=== PATIENT | female | born 1965 | race Caucasian/White ===

== ENCOUNTER 2024-08-04 10:33 | Inpatient (IN) ==
--- NOTE | 2024-08-04 11:26 | Emergency Department Note ---
ED Provider Note CHIEF COMPLAINT: Shortness of breath HISTORY OF PRESENT ILLNESS: This 58-year-old patient presents to the emergency department via private vehicle for evaluation of shortness of breath with history of REVIEW OF SYSTEMS: A review of systems was performed with positives and pertinent negatives listed in the history of present illness. All other systems were reviewed and are negative. ALLERGIES: [] MEDICATIONS: [] PMH: [] PHYSICAL EXAM: VITALS: Vitals are noted on the nurse's note and reviewed by myself. Vital signs stable. GENERAL: [], in no acute distress, nondiaphoretic, well-developed well- nourished. SKIN: The skin was without rashes, erythema, edema, or bruising. HEAD: Normocephalic atraumatic. EARS: External auditory canals clear, tympanic membranes pearly piper without erythema or effusion bilaterally. EYES: Pupils equal round and reactive to light and accommodation. Conjunctivae without injection, sclerae without icterus. Extraocular movements intact. NOSE: Patent, turbinates without inflammation or discharge. No sinus tenderness. MOUTH: Mucous membranes moist. Tonsils are not enlarged. Pharynx without erythema or exudate. Uvula midline. Airway patent. Tongue does not deviate. NECK: Supple without nuchal rigidity. No lymphadenopathy. No thyromegaly. Cervical spine is nontender. No JVD. HEART: Regular rate and rhythm without murmurs gallops or rubs. LUNGS: Clear to auscultation bilaterally without wheezes, rales or rhonchi. No retractions or accessory muscle use. ABDOMEN: Positive bowel sounds x 4. Soft, nontender, without masses or organomegaly. Mott sign negative. No guarding or rebound tenderness. MUSCULOSKELETAL: No muscle atrophy, erythema, or edema noted. Full range of motion without joint tenderness in all extremities. No tenderness to palpation. Normal gait. Strength 5/5 throughout. NEURO: Patient was alert and oriented to person place and time. No focal neur ological deficits. MEDICAL DECISION MAKING: DIFFERENTIAL DIAGNOSIS: [] The chart was completed utilizing [employer] Speech voice recognition software. Grammatical errors, random word insertions, pronoun errors, and incomplete sentences are an occasional consequence of this system due to software limitations, ambient noise, and hardware issues. Any formal questions or concerns about the content, text, or information contained within the body of this dictation should be directly addressed to the physician for clarification. Past Med/Surg History Problem List (Updated 07/21/24 @ 23:12 by Julianne Ramos MD) Abdominal ascites (Acute) Cirrhosis (Acute) Cellulitis of abdominal wall (Acute) Impaired glucose tolerance Surgical History (Updated 10/03/18 @ 13:13 by Madhu Torres PA-C) No significant past surgical history Social History Smoking Status: Current every day smoker Preferred Language: Icelandic Feels Safe at Home: Yes Allergies Allergies Allergy/AdvReac Type Severity Reaction Status Date / Time No Known Allergies Allergy Mild Unverified 10/28/06 13:31 Home Meds Home Medications Medication Instructions Recorded Confirmed DOXYPEN ##0 10/28/06 SERAZONE ##0 10/28/06 STOMACH PILL ##0 10/28/06 Previous Rx's Medication Instructions Recorded hydrocodone 5 mg-acetaminophen 325 1 tab PO Q6H PRN pain #12 tabs 10/03/18 mg tablet ([place]) Results & Data (ED) Vital Signs Vital Signs - 24 hr 08/04/24 11:01 08/04/24 11:01 Temperature 36.9 C Temperature Source Oral Pulse Rate 96 H Pulse Rhythm Regular Pulse Strength Normal Respiratory Rate 20 Respiratory Effort / Characteristics Non-Labored Spontaneous Non-Labored Respiratory Depth Normal Normal Respiratory Pattern Regular Regular Blood Pressure 125/67 Blood Pressure Mean 86 Blood Pressure Position Sitting Pulse Oximetry 95 Oxygen Delivery Method Room Air Room Air Sepsis Recent Fever Within 48 Hours No Sepsis New/Unexplained Change in Mental Status No Sepsis Action Taken by Nursing No Action Required Discharge Plan Visit Data Chief Complaint: Shortness of Breath/Dyspnea Stated Complaint: SOB/TROUBLE BREATHING, FLUID IN LIVER/LUNGS ED Provider: Lj Livingston ED Midlevel Provider: Jennifer Brothers Forms Stand Alone Forms: My [facility] [employer] Prescriptions Prescriptions: No Action DOXYPEN Qty: 0 SERAZONE Qty: 0 STOMACH PILL Qty: 0 hydrocodone-acetaminophen [[place]] 5-325 mg tablet 1 tab PO Q6H PRN (Reason: pain) Qty: 12 0RF Rx Instructions: Initial Treatment Referrals Referrals: Alexandro Rose MD [Primary Care Provider] -
[2024-08-04 12:18] LABS: Basophils # (auto) 0.04 K/uL (0.00-0.20); Basophils % (auto) 0.5 %; Eosinophils # (auto) 0.12 K/uL (0.00-0.50); Eosinophils % (auto) 1.4 %; Hematocrit (blood only) 33.7 % (37.0-47.0); Hemoglobin 10.8 g/dl (12.0-16.0); Immature Granulocytes # (auto) 0.06 K/uL (0.01-0.20); Immature Granulocytes % (auto) 0.7 %; Lymphocytes # (auto) 2.09 K/uL (1.20-3.40); Lymphocytes % (auto) 24.1 %; Mean Corpuscular Hemoglobin 30.6 pg (25.0-34.0); Mean Corpuscular Volume 95.5 fL (80.0-100.0); Mean Platelet Volume 10.3 fL (9.4-12.4); Monocytes # (auto) 0.41 K/uL (0.11-0.59); Monocytes % (auto) 4.7 %; Neutrophils # (auto) 5.97 K/uL (1.40-6.50); Neutrophils % (auto) 68.6 %; Platelet Count 115 K/uL (130-400); RDW Coefficient of Variation 15.3 % (11.5-14.5); RDW Standard Deviation 53.1 fL (36.4-46.3); Red Blood Count 3.53 M/uL (4.20-5.40); White Blood Count 8.69 K/ul (4.8-10.8)
[2024-08-04 12:27] LABS: Albumin Globulin Ratio 0.7 (0.9-2); Albumin Level 3.2 gm/dl (3.4-5.0); BUN Creatinine Ratio 11.1 (10-20); Bilirubin,Total 1.1 mg/dl (0.2-1.0); Calcium 8.3 mg/dl (8.6-10.3); Creatinine Clr Calc Pharmacy 92.5 ml/min; Globulin 4.6 gm/dl (2.5-4.0); Potassium 3.4 mmol/L (3.5-5.1); Total Protein 7.8 gm/dl (6.0-8.3)
[2024-08-04] MEDS: OPTIRAY 320 100ml IV ONE (13:09)
--- NOTE | 2024-08-04 13:35 | XRay Report ---
XR chest 1V portable HISTORY: 58 years-old Female Dyspnea acute shortness of breath COMPARISON: None TECHNIQUE: AP view of the chest FINDINGS: Cardiomediastinal and hilar silhouettes are within normal limits. Interstitial coarsening with hazy i ll-defined bibasilar densities suggestive of atelectasis. No pneumothorax or pleural effusion. Bones appear grossly intact. IMPRESSION: No acute process. ACT 112: Negative or not required by law. The above report was generated using voice recognition software. It may contain grammatical, syntax o r spelling errors. Electronically signed by: Jono Mendez M.D. 08/04/2024 1:34 PM
--- NOTE | 2024-08-04 13:44 | CT Scan Report ---
ABDOMEN AND PELVIS CT WITH IV CONTRAST CT DOSE: 1414.17 mGy.cm HISTORY: Acute generalized abdominal pain with distention and ascites ascites, cellulitis TECHNIQUE: Multiaxial CT images of the abdomen and pelvis were performed following the IV administrat ion of 94 cc of Optiray, A dose lowering technique was utilized adhering to the principles of ALARA. COMPARISON STUDY: CT abdomen and pelvis 07/21/2024 FINDINGS: Cardiomegaly with coronary artery calcifications. The lung bases are generally clear. No pn eumatosis or pneumoperitoneum. Splenomegaly redemonstrated measuring up to 16 cm. Unremarkable pancre as, gallbladder and adrenal glands. Cirrhotic liver. No hepatic mass identified. There is patency of the portal vein. Unremarkable kidneys. No hydronephrosis. Unremarkable pelvic structures. Atherosclerosis of the aorta without aneurysm. Mildly enlarged periportal lymph nodes, likely related to the chronic liver diseas e. Abdominal varicosities include periesophageal varicosities with mild distal esophageal wall thicke komal. There is mild wall thickening. The majority of the small bowel with additional areas of large b owel wall thickening also seen. Colonic diverticulosis. No bowel obstruction. Moderate ascites. Anasa rca. Fat and fluid filled umbilical hernia with diastases of approximately 4 cm. Infraumbilical herni a is fat filled, opening a 4.5 cm. No acute fracture. No destructive bone lesions. IMPRESSION: 1. Cirrhosis with stigmata of portal venous hypertension redemonstrated including splenomegaly with m oderate ascites and abdominal varicosities. 2. Areas of large and small bowel wall thickening again noted, likely portal enteropathy and colopath y with infectious etiology considered less likely. 3. No bowel obstruction or pneumoperitoneum. 4. Colonic diverticulosis. 5. Abdominal wall hernias redemonstrated. ACT 112: Negative or not required by law. The above report was generated using voice recognition software. It may contain grammatical, syntax o r spelling errors. Electronically signed by: Jono Mendez M.D. 08/04/2024 1:42 PM
--- NOTE | 2024-08-04 14:22 | Emergency Department Note ---
ED Visit Note I was consulted by the Advanced Practice Provider. The case was discussed at length. I personally made/approved the management plan and take responsibility for the patient management. I performed a substantive portion of the visit. This includes the aspects of: [-I independently interpreted the following studies:][Chest x-ray shows potential atelectasis or some fluid buildup at both lower lung bases.] Patient presents with some shortness of breath and fluid buildup. She does have liver disease and ascites. Given her presentation, given the amount of ascites, hospitalization was felt warranted. Patient may benefit from a paracentesis while hospitalized. .
--- NOTE | 2024-08-04 15:10 | History & Physical Report ---
<Statement entered by Mansoor Houston, DO - 08/04/24 16:57> I have seen and examined the patient and have discussed the case with the provider above. I have reviewed the advanced practitioner's documentation, and I agree with, and take responsibility for that plan of care. Patient states is getting her 30 pounds over the past month or so. Biggest complaint now is that she is hungry and she has not been fed. Significant shortness of breath with activity. Lungs: Decreased breath sounds, few crackles at the bases Abdomen: Distended, firm, umbilical hernia/abdominal wall hernia, skin is edematous and red, no evidence of cellulitis, fluid wave, some mild tenderness over the umbilical hernia but soft Extremities: Severe 4+ pitting edema up through posterior thigh Reviewed GI consultation, agreeing with paracentesis, recommending EGD to evaluate for variceal screening. Note: Patient was quite adamant that she would not let us put anything down her throat when I interviewed her earlier. Assessment: Suspected progressive ascites and edema due to cirrhosis of unknown certain etiology, suspected fatty liver disease. Consider right sided heart failure Discussed plan of care as outlined below with NAM Date of Service August 04, 2024 Assessment & Plan (1) Decompensated cirrhosis: (2) Abdominal ascites: (3) T2DM (type 2 diabetes mellitus): Plan This is a 58-year-old female who has a significant past medical history of T2DM, diabetic polyneuropathy, HLD, asthma and depression who presents to ED secondary to worsening shortness of breath and increasing abdominal distention over the last several weeks. New onset decompensated liver cirrhosis admit to the [facility] Cirrhosis work up including echo, ferritin, transferrin, PTT, PT/INR,Hepatitis panel, ZACKARY, ceruloplasmin, alpha 1 antitrypsin Recent TSH as outpt was 6, will repeat for t4 Diagnostic and therapeutic paracentesis in a.m. with fluid analysis Lasix IV 40mg BID with KCL + Aldactone 100mg daily consult gastroenterology --CT a/p:Cirrhosis with stigmata of portal venous hypertension re demonstrated including splenomegaly with moderate ascites and abdominal varicosities.2. Areas of large and small bowel wall thickening again noted, likely portal enteropathy and colopathy with infectious etiology considered less likely. continue PPI Umbilical hernia --Ct shows no incarceration she will need Gen surgery eval as outpatient abdominal wall erythema in the setting of distension and varicosities not a true cellulitis T2DM- last a1c 7.2 in March, hold metformin, ISS per protocol HLD: chronic, stable, hold statin for now DVT ppx: SCDS in light of paracentesis tomorrow FULL CODE PCP: Rose Dispo: admit to med tele Pt was seen and examined in collaboration with Dr. Houston, please see addendum I spent a total of 76 minutes reviewing notes, outpatient records, labs, medication, coordinating, documenting and providing care for this patient excluding time spent in the performance of separately billed services. History of Present Illness Chief Complaint: Increasing abd distension and worsening SOB. Primary Care Provider: Alexandro Rose MD This is a 58-year-old female who has a significant past medical history of T2DM, diabetic polyneuropathy, HLD, asthma and depression who presents to ED secondary to worsening shortness of breath and increasing abdominal distention over the last several weeks. Of significance patient was seen in ED on 07/21 secondary to diarrhea and abdominal wall cellulitis. At that point in time it was recommended she continue to take a course of Bactrim for which she was prescribed as outpatient. CT scan at the time showed diffuse ascites with evidence of cirrhosis. It was recommended patient be admitted to hospital for further workup; however, she declined due to needing to take care of the dogs. She also recently followed up in the outpatient setting and again was recommended ED evaluation, but further declined. Because of this she was started on Lasix 40 mg twice a daily, potassium supplement as well as Aldactone. Upon questioning patient gets easily frustrated and does not want to answer questions. She keeps reiterating that she cannot be admitted long as she has to return home to her dogs. She reports having coverage for her dogs throughout today. She states over the last several months she has noticed increased distention in her abdomen. She thought maybe she just ate too much over the holidays. She also notes increasing shortness of breath to the point she is unable to walk from 1 part of her house to the other without getting significantly short of breath. She does have lower extremity swelling, but fe els this is unchanged. She also continues to experience redness and bulging of her umbilical hernia. She also feels that it is warm. She further reports continued loose stool and diarrhea. She states she moves her bowels and it is very watery every couple hours. She denies any black or tarry stool. She further denies any recent fever, chills, sweats, lightheadedness, dizziness, chest pain, palpitations, n/v or change in urinary habits. in ED patient underwent a CT abdomen pelvis which showed cirrhosis with stigmata of portal venous hypertension including splenomegaly with moderate ascites and abdominal varicosities. Areas of large and small bowel wall thickening again noted likely portal enteropathy [place] colopathy. Abdominal wall hernia again noted mostly fat filled. She denies any prior alcohol use or significant Tylenol use. She denies any prior history of blood transfusions or known diagnosis of hepatitis. She is unsure regarding her vaccination status and states, "that should be in my chart." She is unsure of her family history as she states that she grew up in a foster care. Allergies Allergy/AdvReac Type Severity Reaction Status Date / Time No Known Allergies Allergy Mild Unverified 10/28/06 13:31 Home Medications Medication Instructions Recorded Confirmed Type aspirin 81 mg tablet,delayed 81 mg PO DAILY 08/04/24 08/04/24 History release atorvastatin 20 mg tablet 20 mg PO DAILY 08/04/24 08/04/24 History doxepin 25 mg capsule 25 mg PO BID 08/04/24 08/04/24 History furosemide 40 mg tablet 40 mg PO BID 08/04/24 08/04/24 History metformin 500 mg tablet,extended 500 mg PO DAILY 08/04/24 08/04/24 History release 24 hr pantoprazole 40 mg tablet,delayed 40 mg PO DAILY 08/04/24 08/04/24 History release potassium chloride 20 mEq 20 meq PO BID 08/04/24 08/04/24 History tablet,extended release spironolactone 100 mg tablet 100 mg PO DAILY 08/04/24 08/04/24 History trazodone 100 mg tablet 100 mg PO HS 08/04/24 08/04/24 History Past Med/Surg History Problem List (Updated 08/04/24 @ 15:19 by Layla Maldonado PA-C) Decompensated cirrhosis Abdominal ascites (Acute) Cellulitis of abdominal wall (Acute) Impaired glucose tolerance Medical History (Updated 08/04/24 @ 15:19 by Layla Maldonado PA-C) Tobacco use Asthma HLD (hyperlipidemia) T2DM (type 2 diabetes mellitus) Cirrhosis Surgical History No significant past surgical history Family History (Updated 08/04/24 @ 15:07 by Layla Maldonado PA-C) Other Family history unknown Social History (Updated 08/04/24 @ 15:07 by Layla Maldonado PA-C) Smoking Status: Current every day smoker Tobacco Type: Cigarettes Hx Alcohol Use: No Hx Substance Use: No Preferred Language: Brazilian marital status: Single Current Living Situation: Alone Feels Safe at Home: Yes Review of Systems Review of Systems: All systems reviewed & are unremarkable except as noted in HPI & below Physical Exam Physical Exam: Constitutional: WD/WN, vitals as above, NAD, sitting up in bed, pleasant, conversing easily Head: Normocephalic, Atraumatic Eyes: PERRL, conjunctivae normal, anicteric sclerae ENMT: external ear and nose normal, oropharynx normal Neck: trachea midline, no thyromegaly normal visual inspection Respiratory: normal respiratory effort, lungs clear to auscultation, no wheeze, rales, rhonchi. Normal insp/exp effort, no accessory muscle use Cardiovascular: RRR, no murmur, no edema Vessels: no JVD or carotid bruit Chest: normal inspection of chest Abdomen: normal bowel sounds, soft, nontender, no hepatosplenomegaly Musculoskeletal: no cyanosis or clubbing, extremities motor strength 5/5 Skin: no rashes, warm and dry normal turgor Neurologic: PERRL, EOMI, accommodation nl, no face palsy, no dysarthria CN's II-XI intact bilaterally and moves all extremities Psychiatric: A+Ox3, euthymic affect Lymphatic: no cervical or axillary lymphadenopathy : deferred Results & Data Results & Data Vital Signs (Past 12 Hours) Vital Signs Temp Pulse Resp BP Pulse Ox O2 Del Method 08/04/24 14:00 96 H 20 142/91 H 95 Room Air 08/04/24 13:03 94 H 21 95 Room Air 08/04/24 13:00 140/102 H 08/04/24 12:15 90 17 96 Room Air 08/04/24 12:00 139/81 08/04/24 12:00 94 H 17 139/81 97 Room Air 08/04/24 11:48 107 H 20 119/72 97 Room Air 08/04/24 11:39 97 H 08/04/24 11:37 94 H 20 96 Room Air 08/04/24 11:30 99 Room Air 08/04/24 11:01 36.9 C 96 H 20 125/67 95 Room Air 08/04/24 11:01 Room Air Laboratory Results I have independently reviewed and interpreted patient's admitting labs including CBC, CMP, PTT, PT/INR, mag and troponin. Diagnostic Findings Abdomen/Pelvis CT 08/04/24 11:[address] WITH IV CONTRAST CT DOSE: 1414.17 mGy.cm HISTORY: Acute generalized abdominal pain with distention and ascites ascites, cellulitis TECHNIQUE: Multiaxial CT images of the abdomen and pelvis were performed following the IV administration of 94 cc of Optiray, A dose lowering technique was utilized adhering to the principles of ALARA. COMPARISON STUDY: CT abdomen and pelvis 07/21/2024 FINDINGS: Cardiomegaly with coronary artery calcifications. The lung bases are generally clear. No pneumatosis or pneumoperitoneum. Splenomegaly redemonstrated measuring up to 16 cm. Unremarkable pancreas, gallbladder and adrenal glands. Cirrhotic liver. No hepatic mass identified. There is patency of the portal vein. Unremarkable kidneys. No hydronephrosis. Unremarkable pelvic structures. Atherosclerosis of the aorta without aneurysm. Mildly enlarged periportal lymph nodes, likely related to the chronic liver disease. Abdominal varicosities include periesophageal varicosities with mild distal esophageal wall thickening. There is mild wall thickening. The majority of the small bowel with additional areas of large bowel wall thickening also seen. Colonic diverticulosis. No bowel obstruction. Moderate ascites. Anasarca. Fat and fluid filled umbilical hernia with diastases of approximately 4 cm. Infraumbilical hernia is fat filled, opening a 4.5 cm. No acute fracture. No destructive bone lesions. IMPRESSION: 1. Cirrhosis with stigmata of portal venous hypertension redemonstrated including splenomegaly with moderate ascites and abdominal varicosities. 2. Areas of large and small bowel wall thickening again noted, likely portal enteropathy and colopathy with infectious etiology considered less likely. 3. No bowel obstruction or pneumoperitoneum. 4. Colonic diverticulosis. 5. Abdominal wall hernias redemonstrated. ACT 112: Negative or not required by law. The above report was generated using voice recognition software. It may contain grammatical, syntax or spelling errors. Electronically signed by: Jono Mendez M.D. 08/04/2024 1:42 PM Chest X-Ray 08/04/24 11:37 XR chest 1V portable HISTORY: 58 years-old Female Dyspnea acute shortness of breath COMPARISON: None TECHNIQUE: AP view of the chest FINDINGS: Cardiomediastinal and hilar silhouettes are within normal limits. Interstitial coarsening with hazy ill-defined bibasilar densities suggestive of atelectasis. No pneumothorax or pleural effusion. Bones appear grossly intact. IMPRESSION: No acute process. ACT 112: Negative or not required by law. The above report was generated using voice recognition software. It may contain grammatical, syntax or spelling errors. Electronically signed by: Jono Mendez M.D. 08/04/2024 1:34 PM Medications Administered Medication List Discontinued Medications Furosemide (Furosemide 40 Mg/4 Ml Vial) 40 mg IV ONE ONE Stop: 08/04/24 15:00 Last Admin: 08/04/24 15:12 Dose: 40 mg Documented By: JAMES Ioversol (Optiray 320 100ml) 94 ml IV ONCE ONE Stop: 08/04/24 13:09 Last Admin: 08/04/24 13:09 Dose: 94 ml Documented By: EL ECG Additional Comments: I have independently reviewed and interpreted patient's admitting EKG which revealed: NSR, 99 qtc 456ms COVID-19 Results Results COVID-19 Adm Lab Results: RBC 3.53 M/uL (4.20-5.40) L 08/04/24 WBC 8.69 K/ul (4.8-10.8) 08/04/24 Hgb 10.8 g/dl (12.0-16.0) L 08/04/24 Hct 33.7 % (37.0-47.0) L 08/04/24 Plt Count 115 K/uL (130-400) L 08/04/24 Neutrophils (%) (Auto) 68.6 % 08/04/24 Lymphocytes (%) (Auto) 24.1 % 08/04/24 Monocytes # (Auto) 0.41 K/uL (0.11-0.59) 08/04/24 Eosinophils # (Auto) 0.12 K/uL (0.00-0.50) 08/04/24 Immature Granulocyte % (Auto) 0.7 % 08/04/24 Neutrophils # (Auto) 5.97 K/uL (1.40-6.50) 08/04/24 Lymphocytes # (Auto) 2.09 K/uL (1.20-3.40) 08/04/24 Monocytes # (Auto) 0.41 K/uL (0.11-0.59) 08/04/24 Eosinophils # (Auto) 0.12 K/uL (0.00-0.50) 08/04/24 Basophils # (Auto) 0.04 K/uL (0.00-0.20) 08/04/24 Immature Granulocyte # (Auto) 0.06 K/uL (0.01-0.20) 5 Na 134 mmol/L (136-145) L 08/04/24 K 3.4 mmol/L (3.5-5.1) L 08/04/24 Cl 99 mmol/L (98-107) 08/04/24 CO2 30 mmol/L (21-32) 08/04/24 Anion Gap 5 (3-11) 08/04/24 BUN 8 mg/dl (6-23) 08/04/24 Creatinine 0.72 mg/dl (0.6-1.2) 08/04/24 BUN/Creatinine Ratio 11.1 (10-20) 08/04/24 Glucose Level 115 mg/dl (70-99(Fasting)) H 08/04/24 Ca 8.3 mg/dl (8.6-10.3) L 08/04/24 Total Bilirubin 1.1 mg/dl (0.2-1.0) H 08/04/24 AST/SGOT 55 U/L (13-39) H 08/04/24 ALT/SGPT 34 U/L (7-52) 08/04/24 Alkaline Phosphatase 349 U/L (34-104) H 08/04/24 Total Protein 7.8 gm/dl (6.0-8.3) 08/04/24 Albumin 3.2 gm/dl (3.4-5.0) L 08/04/24 Globulin 4.6 gm/dl (2.5-4.0) H 08/04/24 Albumin/Globulin Ratio 0.7 (0.9-2) L 08/04/24 Ferritin Pending 08/04/24 PTT Pending 08/04/24 INR Pending 08/04/24 Chest X-Ray 08/04/24 Code Status & VTE Plan Code Status DNR/DNI VTE Prophylaxis Plan VTE Prophylaxis will be ordered: Yes
[2024-08-04] MEDS: FUROSEMIDE 40 MG/4 ML VIAL IV ONE (15:12)
--- OUTSIDE RECORDS SUMMARY | 2024-08-04 15:19 | External Medical Summary | Summary of Care ---
Author Name Unknown Organization [facility] Address [address] [place] [address] Phone [phone] Care Team Providers Care Biazzi Nitrator Operator Name Role Phone Alexandro Rose MD Primary Care Provider + Reason for Visit * Reason Onset Date Comments FYI 07/30/2024 Encounter Details Date Type Department Care Team (Late st Contact Info) Description 07/30/2024 Telephone Family Practice [facility] [address] [place] [address] Karla Woodard RN [address] [place] [address] FYI Allergies No known active allergiesdocumented as of this encounter (statuses as of 08/04/2024) Medications Aspirin EC 81 MG Oral Tablet Delayed ReleaseIndicatio ns:Type 2 diabetes mellitus with hemoglobin A1c goal of less than 8.0% (HCC) Take 1 Tab by mouth daily. 100 Tab 3 1 Active FreeStyle Lite w/Device KitIndications:T ype 2 diabetes mellitus with hemoglobin A1c goal of less than 8.0% (HCC) Use as directed. 1 Kit 1 3 Active B-12 1000 MCG Oral TabletIndication s:B12 deficiency Take 1,000 mcg by mouth in the morning. 90 Tablet 3 4 Active Ibuprofen 800 MG Oral Tablet (Motrin)Indicati ons:Plantar wart TAKE 1 TABLET BY MOUTH 3 TIMES DAILY WITH FOOD FOR PAIN. 270 Tablet 1 4 Active Atorvastatin Calcium 20 MG Oral Tablet (Lipitor) Take 1 Tablet by mouth in the morning. In the morning.. 90 Tablet 3 5 Active Doxepin HCl 25 MG Oral Capsule (SINEquan)Indica tions:MDD (recurrent major depressive disorder) in remission (HCC) TAKE ONE CAPSULE BY MOUTH EVERY DAY IN THE MORNING AND FOUR CAPSULES AT BEDTIME 450 Capsule 3 5 Active metFORMIN HCl ER 500 MG Oral Tablet Extended Release 24 Hour (Glucophage XR)Indications:T ype 2 diabetes mellitus with diabetic peripheral angiopathy without gangrene, unspecified whether senior care insulin use (HCC) Take 1 Tablet by mouth in the morning. 90 Tablet 3 5 Active Pantoprazole Sodium 40 MG Oral Tablet Delayed Release (Protonix)Indica tions:Gastroesop hageal reflux disease without esophagitis TAKE ONE TABLET BY MOUTH EVERY DAY 30 MINUTES BEFORE THE FIRST MEAL OF THE DAY DO NOT CRUSH, CUT OR CHEW 90 Tablet 3 5 Active traZODone HCl 100 MG Oral Tablet (Desyrel)Indicat ions:MDD (recurrent major depressive disorder) in remission (HCC) TAKE ONE TABLET BY MOUTH BEFORE BEDTIME 90 Tablet 5 Active OneTouch Delica Lancets 33GIndications:T ype 2 diabetes mellitus with hemoglobin A1c goal of less than 8.0% ([facility]) USE 1 TO CHECK GLUCOSE up to 4 TIMES DAILY DIRECTED E11.9 400 Each 1 4 Active OneTouch Verio In Vitro Strip (Glucose Blood)Indication s:Type 2 diabetes mellitus with hemoglobin A1c goal of less than 8.0% ([facility]) Test blood sugars up to 4 times a day as directed E11.9 400 Strip 1 4 Active Spironolactone 100 MG Oral Tablet (Aldactone)Indic ations:Other ascites,Cirrhosi s of liver with ascites, unspecified hepatic cirrhosis type (HCC) Take 1 Tablet by mouth in the morning. 30 Tablet 5 Active Potassium Chloride Florence ER 20 MEQ Oral Tablet Extended ReleaseIndicatio ns:Other ascites,Cirrhosi s of liver with ascites, unspecified hepatic cirrhosis type (HCC) take 1 tablet by mouth twice daily --take with furosemide 60 Tablet 5 Active Furosemide 40 MG Oral Tablet (Lasix)Indicatio ns:Other ascites,Cirrhosi s of liver with ascites, unspecified hepatic cirrhosis type (HCC) take 1 tablet in fuels engineer then 1 tab 6 hours later. Take with potassium. 60 Tablet 5 Active documented as of this encounter (statuses as of 08/04/2024) Active Problems Problem Noted Date Diagnosed Date B12 deficiency 06/03/2023 Diabetic neuropathy 02/20/2023 Mild intermittent asthma without complication Blood in stool 08/26/2019 Umbilical hernia without obstruction and without gangrene 01/24/2019 Type 2 diabetes mellitus wit h diabetic peripheral angiopathy without gangrene 07/18/2017 Routine general medical exam ination at a health care facility 09/10/2013 Overview (05/17/2022): 05/12 FOB WNL 05/09 FOB+. DECLined scope , mammo 02/07 LFTs up a little 09/05 rec d/c nefazadone (liver) and switch to traz 100mg BID 01/03 referred flotation tender helper for pap under sedation. DECLINES colonoscopy 09/04-declined pap-had painful pap in past, traumatized. Consider in future Gastroesophageal reflux disease without esophagi tis 08/11/2001 Type 2 diabetes mellitus wit h hemoglobin A1c goal of less than 8.0% Overview (11/17/2015): Tests 4x/day per her preference ICD-10 update of inactive term Diabetic polyneuropathy Overview (10/07/2015): ICD-10 update of inactive term Dyslipidemia, goal LDL below 100 MDD (recurrent major depressive disorder) in rem ission Overview (12/25/2012): sees [facility]. Mcc[facility] [employer] [facility] Former smoker documented as of this encounter (statuses as of 08/04/2024) Resolved Problems Problem Noted Date Diagnosed Date Resolved Date Morbid obesity with body mas s index (BMI) of 40.0 to 44.9 in adult 08/26/2019 03/24/2024 Overview (03/24/2024): historical Morbid obesity 02/02/2019 03/05/2019 Body mass index (BMI) of 40. 0 to 44.9 in adult 04/22/2017 09/02/2019 Overview: Per Obesity protocol #1 OTOGENIC PAIN, LEFT 11/10/2003 08/02/19 12 DYSFUNCT EUSTACHIAN TUBE 11/10/200311/2016 Chronic rhinitis 11/10/2003 05/07/2011 Esophageal reflux 11/10/2003 08/02/2011 ACUTE URI NOS 11/10/2003 05/07/2011 LUMBAGO 11/10/2003 05/07/2011 TOBACCO MUCOSITIS 11/10/2003 05/07/2011 Tobacco use disorder 11/10/2003 011 OPEN WOUND OF HAND, S/P REPAIR 09/08/2002 11/10/2003 AC MAXILLARY SINUSITIS, RIGHT 08/04/2002 11/10/2003 PHARYNGITIS/LARYNGITIS 08/04/200211/09 SINUS CONGESTION 04/22/2002 11/10/2003 TOBACCO MUCOSITIS 04/22/2002 05/07/2011 ACUTE PHARYNGITIS 04/22/2002 11/10/2003 DYSFUNCT EUSTACHIAN TUBE 04/22/200206/2012 UNSPECIFIED GASTRITIS 02/24/20022003 Polydipsia 02/24/2002 11/10/2003 UNSPECIFIED GASTRITIS 02/24/20022003 FAM HX-DIABETES MELLITUS 02/24/2002 UNSPECIFIED GASTRITIS 02/24/20022003 ABN BLOOD CHEMISTRY NEC 02/24/200210/21 Abdominal pain, epigastric 01/21/2002 0 11/10/2003 UNSPECIFIED GASTRITIS 01/21/20022003 UNSPECIFIED GASTRITIS 01/21/20022003 UNSPECIFIED GASTRITIS 01/21/20022003 SPRAIN LUMBOSACRAL 01/13/2002 4 Spasm of muscle 01/13/2002 11/10/2003 ACUTE SINUSITIS NOS 10/03/2001 11/10/19 04 ABSCESS, LEFT AXILLAE 08/11/20012003 Other eye problems influencing health status 1 11/10/2003 SUPERFICIAL INJ CORNEA, LEFT 06/02/2001 11/10/2003 HEMORRHAGE, SUBCONJUNCTIVAL, OS 06/02/2001 11/10/2003 AC MAXILLARY SINUSITIS, LEFT 05/16/2001 11/10/2003 ACUTE URI NOS 05/16/2001 11/10/2003 Tobacco use disorder 05/16/2001 017 Dermatitis 05/16/2001 11/10/2003 Mild intermittent asthma without complication 08/26/2020 documented as of this encounter (statuses as of 08/04/2024) Immunizations Name Administration Dates Next Due DTaP Dipth/Tet/Acell Pertussis (Infanrix), Peds 08/15/2001 Diptheria/Tetanus (Adult) 11/16/2002 HIB PRP-T, 4 Dose, PF, IM (H iberix, ActHib) 08/15/2001 Hepatitis B, 20+ yrs 01/13/2014,09/10/2013,07/09 MMR - Measles/Mumps/Rubella Vaccine 08/15/2001 Pneumococcal Polysaccharide PPV23 (Pneumovax) 03/21/2011 Seasonal Influenza Vac, Quad , Cell culture, with Preserve, 6 mon and above, (Flucelvax) 04/23/2024 Seasonal Influenza Vac., MDV , IM, 0.5 mL (Fluzone) 04/01/2014,04/08/2013,04/23/2012,04/27,05/26/2002 Seasonal Influenza, PF, 6 M & above, IM , (FluLaval or Fluzone) 04/05/2021,05/04/2018,05/20/2017 Seasonal Influenza, Quadriva lent, No Preserve, IM 04/21/2015 TDAP (age 10 and older)(Boostrix) 04/08/2013 Zoster Vaccine Recombinant (Shingrix) 11/24/2020 ,09/15/2020 documented as of this encounter Social History Tobacco Use Types Packs/Day Years Used Date Smoking Tobacco: Former Cigarettes 1 28 0 09/12/1984 - 09/12/2012 Smokeless Tobacco: Never Alcohol Use Standard Drinks/Week Comments No 0 (1 standard drink = 0.6 oz pur e alcohol) PHQ-2 Answer Date Recorded PHQ Adult Total Score 0 11/11/2023 Hunger Vital Sign Answer Date Recorded Within the past 12 months, y ou worried that your food would run out before you got the money to buy more. Never true 11/11/19 24 Within the past 12 months, t he food you bought just didn't last and you didn't have money to get more. Never true 11/11/2023 Childcare Answer Date Recorded Do you feel overwhelmed with taking care of a child, family member or friend? No 11/11/2023 Does your family need help f inding childcare? (Household - for ages 0-17 years) Not on file 11/11/2023 Clothing Answer Date Recorded Have you been unable to get clothing when it was really needed? No 11/11/2023 Is your family able to get c lothes or diapers when needed? (Household - for ages 0-17 years) Not on file 11/11/2023 Personal Safety Answer Date Recorded Do you feel unsafe or have concerns for your saf ety? No 11/11/2023 Do you have concerns for you r family's safety? (Household - for ages 0-17 years) Not on file 11/11/2023 Utilities Answer Date Recorded Do you have trouble paying y our heating, water, or electric bill? No 11/11/2023 Is your family able to pay t he heat, water, or electric bill? (Household - for ages 0-17 years) Not on file 11/11/2023 Does your family have access to good internet? (Household - for ages 0-17 years) Not on file 11/11/2023 Employment Status Answer Date Recorded Are you unemployed or without regular income? No 11/11/2023 Does the household have a re lar source of income? (Household - for ages 0-17 years) Not on file 11/11/2023 Social Connections Answer Date Recorded How often do you feel lonely or isolated from th ose around you? Never 11/11/2023 Financial Resource Strain Answer Date R ecorded Do you have any trouble payi ng for your medications, or do you think you might in the future? No 11/11/2023 Does your family have troubl e paying for medicine? (Household - for ages 0-17 years) Not on file 11/11/2023 Transportation Needs Answer Date Record ed READ ONLY Do you have troubl e getting a ride to medical visits or work? Never True 11/11/2023 Does your family have a hard time getting a ride to doctors visits? (Household - for ages 0-17 years) Not on file 11/11/2023 Has lack of transportation k ept you from medical appointments, meetings, work, or from getting things needed for daily living? Check all that apply. (Adult - for ages 18 years and over) Not on file 11/11/2023 Do you (or your family) have trouble finding or paying for a ride (transportation)? (Household - for ages 0-17 years) Not on file 11/11/2023 Housing Stability Answer Date Recorded Do you currently live in a s helter or have no steady place to sleep at night? No 11/11/2023 READ ONLY Do you think you a re at risk of becoming homeless? No 11/11/2023 Does your family worry about paying for your home or becoming homeless? (Household - for ages 0-17 years) Not on file 0 11/11/2023 Are you homeless or worried that you might be in the future? (Adult - for ages 18 years and over) Not on file Are you (or your family) quinton eless or worried that you might be in the future? (Household - for ages 0-17 years) Not on file Food Insecurity Answer Date Recorded Do you need food for this week? No 11/11/2023 Are you able to get enough f ood for your family? (Household - for ages 0-17 years) Not on file 11/11/2023 Does your family need food t his week? (Household - for ages 0-17 years) Not on file 11/11/2023 Do you always have enough fo od for your family? 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 Not on file Not on file Not on gino e documented as of this encounter Miscellaneous Notes * Telephone Encounter - Marcos Truong, JAMES - 08/04/2024 9:00 AM EST Patient calling back to cancel her appointment for today. Patient states she is going to the hospital unable to get any information/ Patient disconnected the call very upset. * Telephone Encounter - Karla Woodard RN - 07/30/2024 2:08 PM EST At the request of Dr Rose, this CM called patient to discuss a referral to [facility] to help with patient's sudden onset of health problems and high risk of hospital admission. Called and spoke with patient. She is alert, oriented. Patient very angry on the phone, not wantingto listen to what this CM had to say about benefits to her of [employer] program. Patient verbally aggressive on phone and then disconnected the call. Dr Rose notified. documented in this encounter Plan of Treatment Upcoming Encounters Date Type Department Care Team (Late st Contact Info) Description 12/02/2024 9:00 AM EDT Office Visit [facility] [address] [place] [address] Alexandro Rose MD [address] [place] [address] 01/13/2025 9:20 AM EDT Office Visit Hepatology, [facility] [address] [address] Sally Finley DO [address] [place] [address] 04/30/2025 9:00 AM EDT Office Visit [facility] [address] [place] [address] Alexandro Rose MD [address] [place] [address] Health Maintenance Due Date Last Done Comments Cologuard 2009 Sigmoidoscopy 2009 Pneumococcal Vaccine: 50+ Years (2 of 2 - PCV) 03/21/2012 03/21/2011 Lung Cancer Screening 2014 Diabetic Eye Exam 09/23/2019 09/22/2018 *SPIROMETRY ONCE FOR ASTHMA-ADULT 06/14/2022 DTap/Tdap Vaccines (4 - Td or Tdap) 04/08/2023 04/08/2013, 11/16/2002, 08/15/2001 Fecal Occult Blood Test 05/15/2023 05/15/20, 05/15/2022, 05/06/2019, Additional history exists Mammogram 02/06/2024 02/05/2023, 01/19, 01/31/2022, Additional history exists Diabetic Foot Exam 09/06/2024 09/06/2023, 0 01/02/2021, 01/15/2018, Additional history exists HbA1c 09/27/2024 03/30/2024, 03/2024, 05/27/2023, Additional history exists Depression Monitoring 11/10/2024 11/11/2023 Albumin/Creatinine Ratio 03/30/2025 024, 05/25/2022, 07/05/2021, Additional history exists GFR 07/30/2025 07/30/2024, 090 03/2024, 02/05/2023, Additional history exists Lipid Panel 03/30/2029 03/30/2024, 01/19, 07/05/2021, Additional history exists Hepatitis B Vaccine Completed 01/13/2014, 09/10/2013, 07/09/2013 Zoster Vaccines Completed 11/24/2020, 09/15/2020 Influenza Vaccine (FLU shot) Completed 04/23/2024, 04/05/2021, 05/04/2018, Additional history exists COVID-19 Vaccine Discontinued Colonoscopy Discontinued Colorectal Cancer Screening Discontinued HPV (Gardasil) Vaccine Aged Out No lo nger eligible based on patient's age to complete this topic MENINGOCOCCAL (MENACTRA/MENVEO) Aged Out No longer eligible based on patient's age to complete this topic documented as of this encounter Medical Devices Not on filedocumented as of this encounter Care Teams Biazzi Nitrator Operator Relationship Specialty Start Date End Date Alexandro Rose MD [address] [place] [address] PCP - General Family Medicine 05/01/24 documented as of this encounter
--- OUTSIDE RECORDS SUMMARY | 2024-08-04 15:19 | External Medical Summary | Summary of Care ---
Author Name Unknown Organization [facility] Address [address] [facility] [facility] [address] Phone [phone] Care Team Providers Care Director Radiation Oncology Name Role Phone Alexandro Rose MD Primary Care Provider + Encounter Details Date Type Department Care Team (Late st Contact Info) Description 08/01/2024 Orders Only PATIENT PORTAL DO NOT DELETE THIS DEPT USED BY [address] [place] [address] Allergies No known active allergiesdocumented as of this encounter (statuses as of 08/01/2024) Medications Aspirin EC 81 MG Oral Tablet [...] diabetic peripheral angiopathy without gangrene, unspecified whether ad terminal makeup operator insulin use (HCC) Take 1 Tablet by [...] ions:MDD (recurrent major depressive disorder) in remission ([facility]) TAKE ONE TABLET BY MOUTH BEFORE BEDTIME 90 Tablet 5 Active OneTouch Delica Lancets 33GIndications:T ype 2 diabetes mellitus with hemoglobin A1c goal of less than 8.0% ([facility]) USE 1 TO CHECK GLUCOSE up to 4 TIMES DAILY DIRECTED E11.9 400 Each 1 4 Active OneTouch Verio In Vitro Strip (Glucose Blood)Indication s:Type 2 diabetes mellitus with hemoglobin A1c goal of less than 8.0% ([facility]) Test blood sugars up to 4 times a day as directed E11.9 400 Strip 1 4 Active Spironolactone 100 MG Oral Tablet (Aldactone)Indic ations:Other ascites,Cirrhosi s of liver with ascites, unspecified hepatic cirrhosis type (HCC) Take 1 Tablet by mouth in the morning. 30 Tablet 5 Active Potassium Chloride Flornece ER 20 MEQ Oral Tablet Extended ReleaseIndicatio ns:Other ascites,Cirrhosi s of liver with ascites, unspecified hepatic cirrhosis type (HCC) take 1 tablet by mouth twice daily --take with furosemide 60 Tablet 5 Active Furosemide 40 MG Oral Tablet (Lasix)Indicatio ns:Other ascites,Cirrhosi s of liver with ascites, unspecified hepatic cirrhosis type (HCC) take 1 tablet in early childhood education instructor then 1 tab 6 hours later. Take with potassium. 60 Tablet 5 Active documented as of this encounter (statuses as of 08/01/2024) Active Problems Problem Noted Date Diagnosed Date [...] switch to traz 100mg BID 01/03 referred optical engineering manager for pap under sedation. DECLINES colonoscopy 09/04-declined [...] as of this encounter (statuses as of 08/01/2024) Resolved Problems Problem Noted Date Diagnosed Date [...] as of this encounter (statuses as of 08/01/2024) Immunizations Name Administration Dates Next Due Diptheria/Tetanus (Adult) 11/16/2002 Hepatitis B, 20+ yrs 01/13/2014,09/10/2013,07/09 Pneumococcal Polysaccharide PPV23 (Pneumovax) 03/21/2011 Seasonal Influenza Vac, Quad , Cell culture, with Preserve, 6 mon and above, (Flucelvax) 04/23/2024 Seasonal Influenza Vac., MDV , IM, 0.5 mL (Fluzone) 04/01/2014,04/08/2013,04/23/2012,04/27 Seasonal Influenza, PF, 6 M & above, [...] 11/11/2023 Does the household have a re gular source of income? (Household - for ages [...] gino e documented as of this encounter Plan of Treatment Upcoming Encounters Date Type Department Care Team (Late st Contact Info) Description 08/04/2024 2:00 PM EST Office Visit [facility] [address] [address] Alexandro Rose MD [address] [address] 12/02/2024 9:00 AM EDT Office Visit [facility] [address] [address] Alexandro Rose MD [address] [address] 04/30/2025 9:00 AM EDT Office Visit Family Practice [facility] [address] [place] [address] Alexandro Rose MD [address] [place] [address] Health Maintenance Due Date Last Done Comments [...] 01/15/2018, Additional history exists HbA1c 09/27/2024 03/30/2024, 020 03/2024, 05/27/2023, Additional history exists Depression Monitoring 11/10/2024 11/11/2023 Albumin/Creatinine Ratio 03/30/20252 024, 05/25/2022, 07/05/2021, Additional history exists GFR 07/30/2025 07/30/2024, 09/0 03/2024, 02/05/2023, Additional history exists Lipid Panel [...] filedocumented as of this encounter Care Teams Director Radiation Oncology Relationship Specialty Start Date End Date Alexandro Rose MD [address] [place] [address] PCP - General Family Medicine 05/01/24 documented as of this encounter
--- OUTSIDE RECORDS SUMMARY | 2024-08-04 15:19 | External Medical Summary | Summary of Care ---
Author Name Unknown Organization [facility] Address [address] [place] [address] Phone [phone] Care Team Providers Care Apprentice Plumber Name Role Phone Alexandro Rose MD Primary Care Provider + Reason for Visit * Reason Onset Date Comments Appointment 07/30/2024 Other 07/30/2024 Encounter Details Date Type Department Care Team (Late st Contact Info) Description 07/30/2024 Telephone Gastroenterology, [facility] [address] [place] [address] Jessica Blackwell CRNP [address] [place] [address] Appointment; Other Allergies No known active allergiesdocumented as of this encounter (statuses as of 08/03/2024) Medications Aspirin EC 81 MG Oral Tablet [...] diabetic peripheral angiopathy without gangrene, unspecified whether intermediate manager insulin use (HCC) Take 1 Tablet by [...] hemoglobin A1c goal of less than 8.0% ([facility]) USE 1 TO CHECK GLUCOSE up to 4 TIMES DAILY DIRECTED E11.9 400 Each 1 4 Active OneTouch Verio In Vitro Strip (Glucose Blood)Indication s:Type 2 diabetes mellitus with hemoglobin A1c goal of less than 8.0% ([facility]) Test blood sugars up to 4 times [...] cirrhosis type (HCC) take 1 tablet in cassandra consultant then 1 tab 6 hours later. Take with potassium. 60 Tablet 5 Active documented as of this encounter (statuses as of 08/03/2024) Active Problems Problem Noted Date Diagnosed Date [...] switch to traz 100mg BID 01/03 referred sales driver for pap under sedation. DECLINES colonoscopy 09/04-declined [...] as of this encounter (statuses as of 08/03/2024) Resolved Problems Problem Noted Date Diagnosed Date [...] as of this encounter (statuses as of 08/03/2024) Immunizations Name Administration Dates Next Due DTaP [...] encounter Miscellaneous Notes * Telephone Encounter - Amy Carrington OSA - 08/03/2024 1:36 PM EST Pt is wondering if there are any kinds of programs that would help her pay for depends undergarments? Pt stated that she having issues with leaking d/t the ascites and bloating JAMES Friend 08/03/2024 1:39 PM * Telephone Encounter - Amy Carrington OSA - 08/03/2024 1:35 PM EST Pt is scheduled for 08/10/24. JAMES Friend 08/03/2024 1:36 PM * Telephone Encounter - Jessica Blackwell CRNP - 07/30/2024 1:01 PM EST Spoke w Dr. Bonilla about this pt. New ascites, CT w IV contrast at [facility] w new cirrhosis. [place] skin on abdomen, tx w Augmentin w improvement. Diabetic. Refusing IP admission. Dr. Bonilla will start Furosemide 20mg BID and spironolactone 100mg daily and recheck renal labs next week. In addition to cirrhosis, I suggested he consider new right sided heart failure - if a concern, get an echocardiogram. Schedulers, please reach out to the pt and offer her first available or I can add her on Saturday at 10:30AM. documented in this encounter Plan of Treatment Upcoming Encounters Date Type Department Care Team (Late st Contact Info) Description 08/04/2024 2:00 PM EST Office Visit Family Practice [facility] [address] [place] [address] Alexandro Rose MD [address] [address] 08/10/2024 10:30 AM EST Office Visit Gastroenterology, [facility] [address] [address] Jessica Blackwell CRNP [address] [place] [address] 12/02/2024 9:00 AM EDT Office Visit [facility] [address] [place] [address] Alexandro Rose MD [address] [place] [address] 04/30/2025 9:00 AM EDT Office Visit [facility] [address] [place] [address] Alexandro Rose MD [address] [place] [address] Health Maintenance Due Date Last Done Comments [...] 01/15/2018, Additional history exists HbA1c 09/27/2024 03/30/2024, 02/0 03/2024, 05/27/2023, Additional history exists Depression Monitoring 11/10/2024 11/11/2023 Albumin/Creatinine Ratio 03/30/20252 024, 05/25/2022, 07/05/2021, Additional history exists GFR 07/30/2025 07/30/2024, 03/2024, 02/05/2023, Additional history exists Lipid Panel [...] filedocumented as of this encounter Care Teams Apprentice Plumber Relationship Specialty Start Date End Date Alexandro Rose MD [address] [place] [address] PCP - General Family Medicine 05/01/24 documented as of this encounter
--- OUTSIDE RECORDS SUMMARY | 2024-08-04 15:19 | External Medical Summary | Summary of Care ---
Author Name Unknown Organization [facility] Address [address] [place] [address] Phone [phone] Care Team Providers Care Atmospheric Physics Professor Name Role Phone Alexandro Rose MD Primary Care Provider + Reason for Visit * Reason Onset Date Comments Appointment 07/30/2024 Other 07/30/2024 Encounter Details Date Type Department Care Team (Late st Contact Info) Description 07/30/2024 Telephone Gastroenterology, [facility] [address] [place] [address] Vipul Blackwell CRNP [address] [place] [address] Appointment; Other Allergies No known active allergiesdocumented [...] diabetic peripheral angiopathy without gangrene, unspecified whether terminal press operator insulin use (HCC) Take 1 Tablet [...] cirrhosis type (HCC) take 1 tablet in addictions counselor assistant then 1 tab 6 hours later. Take [...] switch to traz 100mg BID 01/03 referred nutritional yeast supervisor for pap under sedation. DECLINES colonoscopy 09/04-declined [...] as of this encounter Miscellaneous Notes * Addendum Note - Vipul Blackwell CRNP - 08/04/2024 8:06 AM ESTAddended by: VIPUL BLACKWELL on: 08/04/2024 08:06 AM Modules accepted: Orders * Addendum Note - Christianne López MED ASSIST - 08/03/2024 3:43 PM ESTAddended by: CHRISTIANNE LÓPEZ on: 08/03/2024 03:43 PM Modules accepted: Orders * Telephone Encounter - Christianne López MED ASSIST - 08/03/2024 3:41 PM EST Will try DME to [facility]. Order pended. Pt has appt tomorrow with Dr. Rose-will need to know size and how many per month needed * Telephone Encounter - Amy Carrington OSA [...] 08/03/2024 1:36 PM * Telephone Encounter - Vipul Blackwell CRNP - 07/30/2024 1:01 PM EST Spoke w Dr. Bonilla about this pt. New ascites, CT w IV contrast at [facility] w new cirrhosis. [place] skin on abdomen, tx w Augmentin w [...] Description 08/04/2024 2:00 PM EST Office Visit [facility] [address] [place] [address] Alexandro Rose MD [address] [place] [address] 12/02/2024 9:00 AM EDT Office Visit [facility] [address] [place] [address] Alexandro Rose MD [address] [place] [address] 01/13/2025 9:20 AM EDT Office Visit Hepatology, [facility] [address] [place] [address] Sally Finley DO [address] [place] [address] 04/30/2025 9:00 AM EDT Office Visit [facility] [address] [place] [address] Alexandro Rose MD [address] [place] [address] Health Maintenance Due Date Last Done Comments [...] 01/15/2018, Additional history exists HbA1c 09/27/2024 03/30/2024, 0 03/2024, 05/27/2023, Additional history exists Depression Monitoring [...] Not on filedocumented as of this encounter Visit Diagnoses Diagnosis Liver cirrhosis secondary to [place] (HCC)- Primary Other chronic nonalcoholic liver disease documented in this encounter Care Teams Atmospheric Physics Professor Relationship Specialty Start Date End Date Damaske, Alexandro Joe, MD [address] [place] [address] PCP - General Family Medicine 05/01/24 documented as of this encounter
--- OUTSIDE RECORDS SUMMARY | 2024-08-04 15:19 | External Medical Summary | Summary of Care ---
Author Name Unknown Organization [facility] Address [address] [place] [address] Phone [phone] Care Team Providers Care Lawn Sprinkler Installer Name Role Phone Alexandro Rose MD Primary Care Provider + Reason for Visit * Reason Onset Date Comments Appointment 07/30/2024 Other 07/30/2024 Encounter Details Date Type Department Care Team (Late st Contact Info) Description 07/30/2024 Telephone Gastroenterology, [facility] [address] [place] [address] Jessica Blackwell CRNP [address] [place] [address] Appointment; Other Allergies No known active allergiesdocumented [...] diabetic peripheral angiopathy without gangrene, unspecified whether rodent exterminator insulin use (HCC) Take 1 Tablet by [...] goal of less than 8.0% ([facility]) USE 1 TO CHECK GLUCOSE up to 4 TIMES DAILY DIRECTED E11.9 400 Each 1 4 Active OneTouch Verio In Vitro Strip (Glucose Blood)Indication s:Type 2 diabetes mellitus with hemoglobin A1c goal of less than 8.0% ([facility]) Test blood sugars up to 4 times [...] cirrhosis type (HCC) take 1 tablet in panama hat hydraulic press operator then 1 tab 6 hours later. Take [...] switch to traz 100mg BID 01/03 referred change booth attendant for pap under sedation. DECLINES colonoscopy 09/04-declined [...] encounter Miscellaneous Notes * Addendum Note - Christianne López, MED ASSIST - 08/03/2024 3:43 PM ESTAddended [...] New ascites, CT w IV contrast at [facility] w new cirrhosis. [place] skin on abdomen, tx w Augmentin w [...] Description 08/04/2024 2:00 PM EST Office Visit [facility] [address] [place] [address] Alexandro Rose MD [address] [place] [address] 12/02/2024 9:00 AM EDT Office Visit [facility] [address] [place] [address] Alexandro Rose MD [address] [place] [address] 01/13/2025 9:20 AM EDT Office Visit Hepatology, [facility] [address] [place] [address] Sally Finley DO [address] [place] [address] 04/30/2025 9:00 AM EDT Office Visit [facility] [address] [place] [address] Alexandro Rose MD [address] [place] [address] Health Maintenance Due Date Last Done Comments [...] filedocumented as of this encounter Care Teams Lawn Sprinkler Installer Relationship Specialty Start Date End Date Alexandro Rose MD [address] [place] [address] PCP - General Family Medicine 05/01/24 documented as of this encounter
--- OUTSIDE RECORDS SUMMARY | 2024-08-04 15:19 | External Medical Summary | Summary of Care ---
Author Name Unknown Organization [facility] Address [address] [place] [address] Phone [phone] Care Team Providers Care Ornamental Painter Name Role Phone Alexandro Rose MD Primary Care Provider + Reason for Visit * Reason Onset Date Comments Encounter Created in Error 08/03/2024 Encounter Details Date Type Department Care Team (Late st Contact Info) Description 08/03/2024 Telephone Gastroenterology, [facility] [address] [place] [address] Jessica Blackwell CRNP [address] [place] [address] Encounter Created in Error Allergies No known active allergiesdocumented as of [...] diabetic peripheral angiopathy without gangrene, unspecified whether mcc insulin use (HCC) Take 1 Tablet by [...] goal of less than 8.0% ([facility]) USE 1 TO CHECK GLUCOSE up to 4 TIMES DAILY DIRECTED E11.9 400 Each 1 4 Active OneTouch Verio In Vitro Strip (Glucose Blood)Indication s:Type 2 diabetes mellitus with hemoglobin A1c goal of less than 8.0% ([facility]) Test blood sugars up to 4 [...] cirrhosis type (HCC) take 1 tablet in missile inspector then 1 tab 6 hours later. Take [...] switch to traz 100mg BID 01/03 referred turkey pinner for pap under sedation. DECLINES colonoscopy 09/04-declined [...] 08/04/2024) Immunizations Name Administration Dates Next Due Diptheria/Tetanus [...] No 11/11/2023 Does the household have a [facility] source of income? (Household - for ages [...] Description 08/04/2024 2:00 PM EST Office Visit [facility] [address] [place] [address] Alexandro Rose MD [address] [place] [address] 12/02/2024 9:00 AM EDT Office Visit Family Practice [facility] [address] [place] [address] Alexandro Rose MD [address] [place] [address] 01/13/2025 9:20 AM EDT Office Visit Hepatology, [facility] [address] [place] [address] Sally Finley DO [address] [place] [address] 04/30/2025 9:00 AM EDT Office Visit [facility] [address] [place] [address] Alexandro Rose MD [address] [place] [address] Health Maintenance Due Date Last Done Comments [...] filedocumented as of this encounter Care Teams Ornamental Painter Relationship Specialty Start Date End Date Alexandro Rose MD [address] [place] [address] PCP - General Family Medicine 05/01/24 documented as of this encounter
--- OUTSIDE RECORDS SUMMARY | 2024-08-04 15:19 | External Medical Summary | Summary of Care ---
Author Name Unknown Organization [facility] Address [address] [place] [address] Phone [phone] Care Team Providers Care Senior Medical Transcriptionist Name Role Phone Alexandro Rose MD Primary Care Provider + Reason for Visit * Reason Onset Date Comments Appointment 07/30/2024 Other 07/30/2024 Encounter Details Date Type Department Care Team (Late st Contact Info) Description 07/30/2024 Telephone Gastroenterology, [facility] [address] [place] [address] Jessica Blackwell CRNP [address] [place] [address] Appointment; Other Allergies No known active allergiesdocumented [...] diabetic peripheral angiopathy without gangrene, unspecified whether long chain quiller tender insulin use (HCC) Take 1 Tablet by [...] goal of less than 8.0% ([facility]) USE 1 TO CHECK GLUCOSE up to 4 TIMES DAILY DIRECTED E11.9 400 Each 1 4 Active OneTouch Verio In Vitro Strip (Glucose Blood)Indication s:Type 2 diabetes mellitus with hemoglobin A1c goal of less than 8.0% ([facility]) Test blood sugars up to [...] cirrhosis type (HCC) take 1 tablet in surface boss then 1 tab 6 hours later. Take [...] switch to traz 100mg BID 01/03 referred leadership program intern for pap under sedation. DECLINES colonoscopy 09/04-declined [...] ascites, CT w IV contrast at [facility] w new cirrhosis. [place] skin on abdomen, tx w Augmentin w [...] 2:00 PM EST Office Visit Family Practice [facility] [address] [place] [address] Alexandro Rose MD [address] [place] [address] 08/10/2024 10:30 AM EST Office Visit Gastroenterology, [facility] [address] [place] [address] Jessica Blackwell CRNP [address] [place] [address] 12/02/2024 9:00 AM EDT Office Visit [facility] [address] [place] [address] Alexandro Rose MD [address] [place] [address] 04/30/2025 9:00 AM EDT Office Visit [facility] [address] [place] [address] Alexandro Rose MD [address] [place] [address] Health Maintenance Due Date Last Done Comments [...] filedocumented as of this encounter Care Teams Senior Medical Transcriptionist Relationship Specialty Start Date End Date Alexandro Rose MD [address] [place] [address] PCP - General Family Medicine 05/01/24 documented as of this encounter
--- OUTSIDE RECORDS SUMMARY | 2024-08-04 15:20 | External Medical Summary | Summary of Care ---
Author Name Unknown Organization [facility] Address [address] [place] [address] Phone [phone] Care Team Providers Care Farm Implement Engine Mechanic Name Role Phone Alexandro Rose MD Primary Care Provider + Encounter Details Date Type Department Care Team (Late st Contact Info) Description 05/01/2024 Telephone Family Practice [facility] [address] [place] [address] Alexandro Rose MD [address] [place] [address] Allergies No known active allergiesdocumented as of this encounter (statuses as of 07/31/2024) Medications Aspirin EC 81 MG Oral Tablet Delayed ReleaseIndicatio ns:Type 2 diabetes mellitus with hemoglobin A1c goal of less than 8.0% (HCC) Take 1 Tab by mouth daily. 100 Tab 3 09/07/2020 Active FreeStyle Lite w/Device KitIndications:T ype 2 diabetes mellitus with hemoglobin A1c goal of less than 8.0% (HCC) Use as directed. 1 Kit 1 02/15/2023 Active B-12 1000 MCG Oral TabletIndication s:B12 deficiency Take 1,000 mcg by mouth in the morning. 90 Tablet 3 08/12/2023 Active Ibuprofen 800 MG Oral Tablet (Motrin)Indicati ons:Plantar wart TAKE 1 TABLET BY MOUTH 3 TIMES DAILY WITH FOOD FOR PAIN. 270 Tablet 1 02/20/2024 Active documented as of this encounter (statuses as of 07/31/2024) Active Problems Problem Noted Date Diagnosed Date [...] switch to traz 100mg BID 01/03 referred cardiac care unit nurse for pap under sedation. DECLINES colonoscopy 09/04-declined [...] as of this encounter (statuses as of 07/31/2024) Resolved Problems Problem Noted Date Diagnosed Date [...] as of this encounter (statuses as of 07/31/2024) Immunizations Name Administration Dates Next Due Diptheria/Tetanus [...] No 11/11/2023 Does the household have a [facility] source of income? (Household - for ages [...] Description 08/04/2024 2:00 PM EST Office Visit [facility] [address] [place] [address] Alexandro Rose MD [address] [place] [address] 12/02/2024 9:00 AM EDT Office Visit [facility] [address] [place] [address] Alexandro Rose MD [address] [place] [address] 04/30/2025 9:00 AM EDT Office Visit Family Practice [facility] [address] [place] [address] Alexandro Rose MD [address] [place] [address] Health Maintenance Due Date Last Done Comments [...] filedocumented as of this encounter Care Teams Farm Implement Engine Mechanic Relationship Specialty Start Date End Date Alexandro Rose MD [address] [place] [address] PCP - General Family Medicine 05/01/24 documented as of this encounter
--- OUTSIDE RECORDS SUMMARY | 2024-08-04 15:20 | External Medical Summary ---
Author Name Unknown Address Unknown Organization K01:LABORATORY [facility] [place] - [address] [place] [address] Laboratory Report Ordering Provider Test Date Status KELLEN ACKERMAN 07/30/2024 12:30:15 Final Observation Date Value Abnormality Reference (Units ) Status Iron 07/30/2024 12:30:15 45 33-151 (ug/dL) Final Iron-binding capacity 07/30/2024 12:30:15 366 250-425 (ug/dL) Final Transferrin Sat % 07/30/2024 12:30:15 12 Below low normal 15-55 (%) Final Performing Location LABORATORY [facility] - [address] [place] [address]
--- OUTSIDE RECORDS SUMMARY | 2024-08-04 15:20 | External Medical Summary ---
Author Name Unknown Address Unknown Organization K01:[facility] [place] [address] [place] [address] Laboratory Report Ordering Provider Test Date Status KELLEN ACKERMAN 07/30/2024 12:30:15 Final Observation Date Value Abnormality Reference (Units ) Status Ferritin 07/30/2024 12:30:15 43 13-150 (ng /mL) Final Postmenopausal women have hi gher ferritin levels than pre-menopausal women. The above reference interval is based on pre-menopausal women. Performing Location [facility]ORY [facility] - [address] [place] [address]
--- OUTSIDE RECORDS SUMMARY | 2024-08-04 15:20 | External Medical Summary ---
Author Name Unknown Address Unknown Organization K01:[facility] - [address] [place] [address] Laboratory Report Ordering Provider Test Date Status KELLEN ACKERMAN 07/30/2024 12:30:15 Final Observation Date Value Abnormality Reference (Units ) Status Vitamin B12 07/30/2024 12:30:15 323 176-9555 (pg/mL) Final Performing Location [facility] - [address] [place] [address]
--- OUTSIDE RECORDS SUMMARY | 2024-08-04 15:20 | External Medical Summary | Summary of Care ---
Author Name Unknown Organization [facility] Address [address] [place] [address] Phone [phone] Care Team Providers Care Systems Test Analyst Name Role Phone Alexandro Rose MD Primary Care Provider + Reason for Visit * Reason Comments Outpatient Testing Encounter Details Date Type Department Care Team (Late st Contact Info) Description 07/30/2024 12:30 PM EST Laboratory [facility], [facility] [address] [facility] [place] [address] [facility] [address] Other ascites; Cirrhosis of liver with ascites, unspecified hepatic cirrhosis type (HCC) Allergies No known active allergiesdocumented as of this encounter (statuses as of 07/30/2024) Medications Aspirin EC 81 MG Oral Tablet [...] diabetic peripheral angiopathy without gangrene, unspecified whether shelter insulin use (HCC) Take 1 Tablet by [...] ions:MDD (recurrent major depressive disorder) in remission ([facility]) TAKE ONE TABLET BY MOUTH BEFORE BEDTIME 90 Tablet 5 Active OneTouch Delica Lancets 33GIndications:T ype 2 diabetes mellitus with hemoglobin A1c goal of less than 8.0% ([facility]) USE 1 TO CHECK GLUCOSE up to 4 TIMES DAILY DIRECTED E11.9 400 Each 1 4 Active OneTouch Verio In Vitro Strip (Glucose Blood)Indication s:Type 2 diabetes mellitus with hemoglobin A1c goal of less than 8.0% ([facility]) Test blood sugars up to 4 times a day as directed E11.9 400 Strip 1 4 Active documented as of this encounter (statuses as of 07/30/2024) Active Problems Problem Noted Date Diagnosed Date [...] switch to traz 100mg BID 01/03 referred vermin exterminator for pap under sedation. DECLINES colonoscopy 09/04-declined [...] as of this encounter (statuses as of 07/30/2024) Resolved Problems Problem Noted Date Diagnosed Date [...] as of this encounter (statuses as of 07/30/2024) Immunizations Name Administration Dates Next Due Diptheria/Tetanus [...] Description 08/04/2024 2:00 PM EST Office Visit [facility] [address] [address] Alexandro Rose MD [address] [place] [address] 12/02/2024 9:00 AM EDT Office Visit [facility] [address] [place] [address] Alexandro Rose MD [address] [place] [address] 04/30/2025 9:00 AM EDT Office Visit [facility] [address] [place] [address] Alexandro Rose MD [address] [place] [address] Pending Results Name Type Priority Associated Diagnoses Date /Time CBC WITH WBC DIFFERENTIAL AND ANEMIA REFLEX WORKUP Lab Routine Other ascites 07/30/2024 12:30 PM EST COMPREHENSIVE METABOLIC PANEL Lab Routine Other ascites 07/30/2024 12:30 PM EST ANEMIA CBC Lab Routine Other ascites 07/30/2024 12:30 PM EST DIFFERENTIAL, AUTOMATED Lab Routine Other ascites 07/30/2024 12:30 PM EST ANEMIA REFLEX CHEMISTRY HOLD Lab Routine Other ascites 07/30/2024 12:30 PM EST IRON SCREEN, INCLUDING TIBC Lab Routine Other ascites Cirrhosis of liver with ascites, unspecified hepatic cirrhosis type (HCC) 07/30/2024 12:30 PM EST FERRITIN Lab Routine Other ascites Cirrhosis of liver with ascites, unspecified hepatic cirrhosis type (HCC) 07/30/2024 12:30 PM EST Health Maintenance Due Date Last Done Comments [...] exists Depression Monitoring 11/10/2024 11/11/2023 Albumin/Creatinine Ratio 03/30/202503/30/2 024, 05/25/2022, 07/05/2021, Additional history exists GFR 03/30/2025 03/30/2024, 01/19, 08/03/2022, Additional history exists Lipid Panel 03/30/2029 03/30/2024, [...] as of this encounter Visit Diagnoses Diagnosis Other ascites Cirrhosis of liver with ascites, unspecified hepatic cirrhosis type (HCC) documented in this encounter Care Teams Systems Test Analyst Relationship Specialty Start Date End Date Alexandro Rose MD [address] [place] [address] PCP - General Family Medicine 05/01/24 documented as of this encounter
--- OUTSIDE RECORDS SUMMARY | 2024-08-04 15:20 | External Medical Summary | Summary of Care ---
Author Name Unknown Organization [facility] Address [address] [place] [address] Phone [phone] Care Team Providers Care Launch Operator Name Role Phone Alexandro Rose MD Primary Care Provider + Encounter Details Date Type Department Care Team (Late st Contact Info) Description 07/30/2024 Referral Triage Care Coordination [facility] Integration [address] [place] [address] Adry Carr OSA [address], [place] [id number] Allergies No known active allergiesdocumented as of [...] diabetic peripheral angiopathy without gangrene, unspecified whether care home insulin use (HCC) Take 1 Tablet by [...] hemoglobin A1c goal of less than 8.0% ([facility]) USE 1 TO CHECK GLUCOSE up to 4 TIMES DAILY DIRECTED E11.9 400 Each 1 4 Active OneTouch Verio In Vitro Strip (Glucose Blood)Indication s:Type 2 diabetes mellitus with hemoglobin A1c goal of less than 8.0% ([facility]) Test blood sugars up to [...] cirrhosis type (HCC) take 1 tablet in materials planner then 1 tab 6 hours later. Take [...] switch to traz 100mg BID 01/03 referred departmental secretary for pap under sedation. DECLINES colonoscopy 09/04-declined [...] Description 08/04/2024 2:00 PM EST Office Visit [facility] [address] [place] [address] Alexandro Rose MD [address] [address] 12/02/2024 9:00 AM EDT Office Visit [facility] [address] [place] [address] Alexandro Rose MD [address] [place] [address] 04/30/2025 9:00 AM EDT Office Visit Family Practice [facility] [address] [place] [address] Alexandro Rose MD [address] [place] [address] Health Maintenance Due Date Last Done Comments [...] Depression Monitoring 11/10/2024 11/11/2023 Albumin/Creatinine Ratio 03/30/2025 092 024, 05/25/2022, 07/05/2021, Additional history exists GFR 03/30/2025 07/30/2024, 090 03/2024, 02/05/2023, Additional history exists [...] filedocumented as of this encounter Care Teams Launch Operator Relationship Specialty Start Date End Date Alexandro Rose MD [address] [place] [address] PCP - General Family Medicine 05/01/24 documented as of this encounter
--- OUTSIDE RECORDS SUMMARY | 2024-08-04 15:20 | External Medical Summary | Summary of Care ---
Author Name Unknown Organization [facility] Address [address] [place] [address] Phone [phone] Care Team Providers Care Supervisor Mattress And Boxsprings Name Role Phone Alexandro Rose MD Primary Care Provider + Reason for Visit * Reason Comments Outpatient Testing Encounter Details Date Type Department Care Team (Late st Contact Info) Description 07/30/2024 12:30 PM EST Laboratory Laboratory, [facility] [place] [address] [facility] 132 [place] [address] Other ascites Allergies No known active allergiesdocumented as of [...] diabetic peripheral angiopathy without gangrene, unspecified whether halfway insulin use (HCC) Take 1 Tablet by [...] ions:MDD (recurrent major depressive disorder) in remission ([facility]) TAKE ONE TABLET BY MOUTH BEFORE BEDTIME 90 Tablet 5 Active OneTouch Delica Lancets 33GIndications:T ype 2 diabetes mellitus with hemoglobin A1c goal of less than 8.0% ([facility]) USE 1 TO CHECK GLUCOSE up to 4 TIMES DAILY DIRECTED E11.9 400 Each 1 4 Active OneTouch Verio In Vitro Strip (Glucose Blood)Indication s:Type 2 diabetes mellitus with hemoglobin A1c goal of less than 8.0% ([facility]) Test blood sugars up to 4 times [...] switch to traz 100mg BID 01/03 referred toe laster for pap under sedation. DECLINES colonoscopy 09/04-declined [...] Description 08/04/2024 2:00 PM EST Office Visit [facility] [address] [address] Alexandro Rose MD [address] [address] 12/02/2024 9:00 AM EDT Office Visit [facility] [address] [place] [address] Alexandro Rose MD [address] [place] [address] 04/30/2025 9:00 AM EDT Office Visit [facility] [address] [place] [address] Alexandro Rose MD [address] [place] [address] Pending Results Name Type Priority Associated Diagnoses [...] Routine Other ascites 07/30/2024 12:30 PM EST Health Maintenance Due [...] Depression Monitoring 11/10/2024 11/11/2023 Albumin/Creatinine Ratio 03/30/2025 09/2 024, 05/25/2022, 07/05/2021, Additional history exists GFR [...] this encounter Visit Diagnoses Diagnosis Other ascites documented in this encounter Care Teams Supervisor Mattress And Boxsprings Relationship Specialty Start Date End Date Alexandro Rose MD [address] [place] [address] PCP - General Family Medicine 05/01/24 documented as of this encounter
--- OUTSIDE RECORDS SUMMARY | 2024-08-04 15:20 | External Medical Summary | Summary of Care ---
Author Name Unknown Organization [facility] Address [address] [place] [address] Phone [phone] Care Team Providers Care Process Design Engineer Name Role Phone Alexandro Rose MD Primary Care Provider + Reason for Referral * Social Care (Within 10 days (routine)) - Authorized Specialty Diagnoses / Procedures Referred By Jag berg Referred To Contact Tile Mason Diagnoses Other ascites Cirrhosis of liver with ascites, unspecified hepatic cirrhosis type (HCC) Alexandro Rose MD [address] [place] [address] Phone: tel: fax: Referral ID Status Reason Start Date Expiration Date Visits Requested Visits Authorized [id number] Authorized Specialty Services Required 07/30/2024 999 [id number] Question Answer Referral Priority Within 10 days (routine) Where should this appointment be scheduled? [facility] Role Promotional Representative Promotional Representative Referral Reason High Utilizer/Patient, Frail Elderly Comments Is patient being transitioned from [facility] to Complex Case Management? No Recent ER visit -new dx cirrhosis/ascites. Declined hospitalization. Limited resources--taking care of 2 dogs. Consider [facility]. * Evaluate & Treat - Unlimited Visits (Within 10 days (routine)) - Authorized Specialty Diagnoses / Procedures Referred By Jag berg Referred To Contact Gastroenterology Diagnoses Other ascites Cirrhosis of liver with ascites, unspecified hepatic cirrhosis type (HCC) Type 2 diabetes mellitus with hemoglobin A1c goal of less than 8.0% (HCC) Diabetic polyneuropathy associated with type 2 diabetes mellitus (HCC) Alexandro Rose MD [address] [place] [address] Phone: tel: fax: Jessica Blackwell CRNP [address] [place] [address] Phone: tel: fax: Referral ID Status Reason Start Date Expiration Date Visits Requested Visits Authorized [id number] Authorized Specialty Services Required 07/30/[phone] Question Answer Referral Priority Within 10 days (routine) Where should this appointment be scheduled? [facility] For what condition is the patient being referred? Liver conditions Comments New dx cirrhosis, ascites, and cellulitis abd (unclear if SBP). Refuses hospitalization (no social support, limited funds/transportation, has 2 dogs). Please eval for outpatient paracentesis. Unclear etiology cirrhosis ([place]?). No ETOH. Discussed w/L Rishi--she will see her 08/10. Reason for Visit * Reason Comments Hospital Follow-Up [facility] 07/21-cellul itis of abdominal wall Encounter Details Date Type Department Care Team (Latest Contact Info) Description 07/30/2024 11:40 AM EST Office Visit Family [facility] [address] [place] [address] Alexandro Rose MD [address] [place] [address] Other ascites*; Cirrhosis of liver with ascites, unspecified hepatic cirrhosis type (HCC); Type 2 diabetes mellitus with hemoglobin A1c goal of less than 8.0% (HCC); Diabetic polyneuropathy associated with type 2 diabetes mellitus (HCC) Allergies No known active allergiesdocumented as of this encounter (statuses as of 07/30/2024) Medications Aspirin EC 81 MG Oral Tablet Delayed ReleaseIndicati ons:Type 2 diabetes mellitus with hemoglobin A1c goal of less than 8.0% (HCC) Take 1 Tab by mouth daily. 100 Tab 3 09/07/19 21 Active FreeStyle Lite w/Device KitIndications: Type 2 diabetes mellitus with hemoglobin A1c goal of less than 8.0% (HCC) Use as directed. 1 Kit 1 07/28/20 23 Active B-12 1000 MCG Oral TabletIndicatio ns:B12 deficiency Take 1,000 mcg by mouth in the morning. 90 Tablet 3 08/12/19 24 Active Ibuprofen 800 MG Oral Tablet (Motrin)Indicat ions:Plantar wart TAKE 1 TABLET BY MOUTH 3 TIMES DAILY WITH FOOD FOR PAIN. 270 Tablet 1 02/20/20 24 Active Atorvastatin Calcium 20 MG Oral Tablet (Lipitor) Take 1 Tablet by mouth in the morning. In the morning.. 90 Tablet 3 07/23/19 25 Active Doxepin HCl 25 MG Oral Capsule (SINEquan)Indic ations:MDD (recurrent major depressive disorder) in remission ([facility]) TAKE ONE CAPSULE BY MOUTH EVERY DAY IN THE MORNING AND FOUR CAPSULES AT BEDTIME 450 Capsule 3 07/23/19 25 Active metFORMIN HCl ER 500 MG Oral Tablet Extended Release 24 Hour (Glucophage XR)Indications: Type 2 diabetes mellitus with diabetic peripheral angiopathy without gangrene, unspecified whether meterman insulin use ([facility]) Take 1 Tablet by mouth in the morning. 90 Tablet 3 07/23/19 25 Active Pantoprazole Sodium 40 MG Oral Tablet Delayed Release (Protonix)Indic ations:Gastroes ophageal reflux disease without esophagitis TAKE ONE TABLET BY MOUTH EVERY DAY 30 MINUTES BEFORE THE FIRST MEAL OF THE DAY DO NOT CRUSH, CUT OR CHEW 90 Tablet 3 07/23/19 25 Active traZODone HCl 100 MG Oral Tablet (Desyrel)Indica tions:MDD (recurrent major depressive disorder) in remission ([facility]) TAKE ONE TABLET BY MOUTH BEFORE BEDTIME 90 Tablet 07/23/19 25 Active OneTouch Rajiv Lancets 33GIndications: Type 2 diabetes mellitus with hemoglobin A1c goal of less than 8.0% ([facility]) USE 1 TO CHECK GLUCOSE up to 4 TIMES DAILY DIRECTED E11.9 400 Each 1 07/21/20 24 Active OneTouch Verio In Vitro Strip (Glucose Blood)Indicatio ns:Type 2 diabetes mellitus with hemoglobin A1c goal of less than 8.0% ([facility]) Test blood sugars up to 4 times a day as directed E11.9 400 Strip 1 07/21/20 24 Active Spironolactone 100 MG Oral Tablet (Aldactone)Awa cations:Other ascites,Cirrhos is of liver with ascites, unspecified hepatic cirrhosis type (HCC) Take 1 Tablet by mouth in the morning. 30 Tablet 07/30/19 25 Active Potassium Chloride Florence ER 20 MEQ Oral Tablet Extended ReleaseIndicati ons:Other ascites,Cirrhos is of liver with ascites, unspecified hepatic cirrhosis type (HCC) take 1 tablet by mouth twice daily --take with furosemide 60 Tablet 07/30/19 25 Active Furosemide 40 MG Oral Tablet (Lasix)Indicati ons:Other ascites,Cirrhos is of liver with ascites, unspecified hepatic cirrhosis type (HCC) take 1 tablet in bottling room worker then 1 tab 6 hours later. Take with potassium. 60 Tablet 07/30/19 25 Active Sulfamethoxazol e-Trimethoprim 800-160 MG Oral Tablet (Bactrim DS)Indications: Cellulitis of abdominal wall Take 1 Tablet by mouth in the morning and 1 Tablet before bedtime. Do all this for 10 days. Until gone.. 20 Tablet 4 11:17 AM EST 07/20/20 24 025 Discontinued documented as of this encounter (statuses as [...] switch to traz 100mg BID 01/[address] truck driver for pap under sedation. DECLINES colonoscopy [...] gino e documented as of this encounter Last Filed Vital Signs Vital Sign Reading Time Taken Comments Blood Pressure 118/66 07/30/2024 11:33 AM EST Pulse 94 07/30/2024 11:33 AM EST Temperature 37.1 C (98.8 F) 07/30/2024 1 1:33 AM EST Respiratory Rate 18 07/30/2024 11:3 3 AM EST Oxygen Saturation 97% 07/30/2024 11: 33 AM EST Inhaled Oxygen Concentration - - Weight 101.3 kg (223 lb 6.4 oz) 025 11:33 AM EST Height - - Body Mass Index 38.95 05/01/2024 8:58 AM EDT documented in this encounter Progress Notes * Alexandro Rose MD - 07/30/2024 1:04 PM EST Images from the original note were not included. Subjective Megan Steinberg is a 58 year old female presenting for Hospital Follow-Up ([facility] 07/21-cellulitis of abdominal wall) History of Present Illness The patient, here for ER follow-up of cellulitis around her umbilical hernia and newly dx cirrhosis. Initially seen OV 07/20/24w/ abd redness & discharge from distended umbilicus. Started on bactrim, cultured MSSA. The cellulitis was previously draining pus, and she sought emergency care due to this issue and reports increased pressure in her lower left quadrant. She has experienced increased abdominal distention. Went to [facility] ER. Had CT Abd noted of ascites along with cirrhosis of the liver. She was told shemay have less than 6 months to live which was very upsetting to her. Offered admission but declined because she had dogs at home to take care of. She was given a prescription for Augmentin for additional coverage of presumed abd cellulitis. No tap was done--unclear ifhas SBP. Does not drink ETOH. Hx elev lfts in past, HCV neg in past, presumed fatty liver. She also reports a sore throat and ear pain that started over the weekend. She denies any fevers orchills. She has been experiencing shortness of breath . weight gain of about twenty-two pounds since May, which she attributes to fluid accumulation, 5 lb increase since 07/20/24. . She denies any increased fluid in other areas such as her legs. No fever/chills. Completed abx Objective Blood pressure 118/66, pulse 94, temperature 98.8 F (37.1 C), temperature source Tympanic, resp. rate 18, weight 223 lb 6.4 oz (101.3 kg), last menstrual period 07/30/2011, SpO2 97%. Physical Exam VITALS: P- 96 on avani Gen-NAD, distended abd. HEENT: Right ear normal. Left ear normal. Nasal congestion bilaterally. Throat irritative. CHEST: Right side more congested than left on auscultation. CARDIOVASCULAR: Heart murmur. Tachycardia with heart rate approximately 96 bpm. ABDOMEN: Abdominal distention. No tenderness on palpation. +fluid shift SKIN +mild redness from above umbilicus to pelvis, diffuse. Results LABS Hb: 10.5 g/dL (07/21/2024) PLT: 113 x10^9/L (07/21/2024) Na: 133 mmol/L (07/21/2024) Lactic acid: 2.3 mmol/L (07/21/2024) Bilirubin: 1.1 mg/dL (07/21/2024) Calcium: 8.5 mg/dL (07/21/2024) AST: 25 U/L (07/21/2024) ALT: 30 U/L (07/21/2024) Lipase: 50 U/L (07/21/2024) HCG: Negative (07/21/2024) RADIOLOGY CT abdomen and pelvis: Cirrhotic liver with diffuse ascites. Two adjacent fat and fluid containing otto-umbilical hernias. Diffuse small and large bowel thickening consistent with anterior colitis. (07/21/2024) PATHOLOGY Culture: Staphylococcus aureus MSSA (07/20/2024) Assessment and Plan Assessment & Plan Abdominal Wall Cellulitis Recent onset of purulent drainage from the umbilical hernia. Culture positive for Staphylococcus aureus. Completed a course of Bactrim and Augmentin. No current signs of systemic infection. -Obtain repeat labs today. Discussed option admission, declined Cirrhosis with Ascites Newly diagnosed cirrhosis with significant ascites contributing to abdominal distention and weight gain. No history of alcohol use. May be due to [place]. Ck labs -recommended ER/inpatient for tap/ workup. Declined due to lack of support, fear of hospital, and having to take care of dogs. Also lack transportation -Start Furosemide and Potassium supplementation to promote diuresis and manage ascites. -Consult with a liver specialist for further management. Discussed w/L Rishi--she will see 08/10/24. -Repeat labs on Saturday, August 04, 2024 & repeat OV with me. Umbilical Hernias Two adjacent fat and fluid-containing otto-umbilical hernias noted on recent CT scan. No current pain reported. -No immediate intervention planned. Pharyngitis Recent onset of throat pain. Physical exam shows an irritated throat, just completed abx. Doubt strep.. -Observe for now. General Health Maintenance / Followup Plans -Return to clinic on Saturday, August 04, 2024 for follow-up and review of labs. - ER visit for paracentesis if symptoms worsen before the follow-up appointment. DM-cont mgmt Other ascites (Primary) - CBC WITH WBC DIFFERENTIAL AND ANEMIA REFLEX WORKUP; Future; Expected date: 07/30/2024 - COMPREHENSIVE METABOLIC PANEL; Future; Expected date: 07/30/2024 - ACUTE HEPATITIS PANEL; Future; Expected date: 07/30/2024 - FERRITIN; Future; Expected date: 07/30/2024 - IRON SCREEN, INCLUDING TIBC; Future; Expected date: 07/30/2024 - Spironolactone 100 MG Oral Tablet (Aldactone); Take 1 Tablet by mouth in the morning. - Potassium Chloride Florence ER 20 MEQ Oral Tablet Extended Release; take 1 tablet by mouth twice daily --take with furosemide - Furosemide 40 MG Oral Tablet (Lasix); take 1 tablet in bottling room worker then 1 tab 6 hours later. Take with potassium. - HEPATOLOGY REFERRAL OP Cirrhosis of liver with ascites, unspecified hepatic cirrhosis type (HCC) - ACUTE HEPATITIS PANEL; Future; Expected date: 07/30/2024 - FERRITIN; Future; Expected date: 07/30/2024 - IRON SCREEN, INCLUDING TIBC; Future; Expected date: 07/30/2024 - Spironolactone 100 MG Oral Tablet (Aldactone); Take 1 Tablet by mouth in the morning. - Potassium Chloride [place] ER 20 MEQ Oral Tablet Extended Release; take 1 tablet by mouth twice daily --take with furosemide - Furosemide 40 MG Oral Tablet (Lasix); take 1 tablet in bottling room worker then 1 tab 6 hours later. Take with potassium. - HEPATOLOGY REFERRAL OP Type 2 diabetes mellitus with hemoglobin A1c goal of less than 8.0% (HCC) - HEPATOLOGY REFERRAL OP Diabetic polyneuropathy associated with type 2 diabetes mellitus (HCC) - HEPATOLOGY REFERRAL OP Wrap-Up Follow Up: Return in about 5 days (around 08/04/2024) for Return with Physician, Labs Today. | For: Return with Physician, Labs Today | Check-out note: Overbook 2pm slot, can come at 1pm. Time: I spent a total of 40-54 minutes (exact time 52 mins) on the date of service in preparation, delivery, and documentation of the care provided to Megan Steinberg excluding any time spent in the performance of separately billed services. Text in this note was generated using an ambient documentation service. I discussed the use of a device to record and summarize our discussion today. All persons present during the encounter consented to its use. documented in this encounter Nursing Notes * Caitlyn Kang LPN - 07/30/2024 11:33 AM EST The patient has been properly identified by confirmation of name and date of . Chief Complaint Patient presents with Hospital Follow-Up [facility] 07/21-cellulitis of abdominal wall documented in this encounter Plan of Treatment Upcoming Encounters Date Type Department Care Team (Late st Contact Info) Description 08/04/2024 2:00 PM EST Office Visit [facility] [address] [place] [address] Alexandro Rose MD [address] [place] [address] 12/02/2024 9:00 AM EDT Office Visit [facility] [address] [place] [address] Alexandro Rose MD [address] [place] [address] 04/30/2025 9:00 AM EDT Office Visit Family [facility] [address] [place] [address] Alexandro Rose MD [address] [place] [address] Pending Results Name Type Priority Associated Diagnoses Date /Time CBC WITH WBC DIFFERENTIAL AND ANEMIA REFLEX WORKUP Lab Routine Other ascites 07/30/2024 12:30 PM EST FERRITIN Lab Routine Other ascites Cirrhosis of liver with ascites, unspecified hepatic cirrhosis type (HCC) 07/30/2024 12:30 PM EST IRON SCREEN, INCLUDING TIBC Lab Routine Other ascites Cirrhosis of liver with ascites, unspecified hepatic cirrhosis type (HCC) 07/30/2024 12:30 PM EST Scheduled Orders Name Type Priority Associated Diagnoses Orde r Schedule CBC WITH WBC DIFFERENTIAL AND ANEMIA REFLEX WORKUP Lab Routine Other ascites Expected: 07/30/2024 (Approximate), Expires: 07/30/2025 ACUTE HEPATITIS PANEL Lab Routine Other ascites Cirrhosis of liver with ascites, unspecified hepatic cirrhosis type (HCC) Expected: 07/30/2024 (Approximate), Expires: 07/30/2025 FERRITIN Lab Routine Other ascites Cirrhosis of liver with ascites, unspecified hepatic cirrhosis type (HCC) Expected: 07/30/2024 (Approximate), Expires: 07/30/2025 IRON SCREEN, INCLUDING TIBC Lab Routine Other ascites Cirrhosis of liver with ascites, unspecified hepatic cirrhosis type (HCC) Expected: 07/30/2024 (Approximate), Expires: 07/30/2025 Scheduled Referrals Name Type Priority Associated Diagnoses Orde r Schedule HEPATOLOGY REFERRAL OP Referral Within 10 days (routine) Other ascites Cirrhosis of liver with ascites, unspecified hepatic cirrhosis type (HCC) Type 2 diabetes mellitus with hemoglobin A1c goal of less than 8.0% (HCC) Diabetic polyneuropathy associated with type 2 diabetes mellitus (HCC) Ordered: 07/30/2024 POPULATION [facility] REFERRAL OP Referral Within 10 days (routine) Other ascites Cirrhosis of liver with ascites, unspecified hepatic cirrhosis type (HCC) Ordered: 07/30/2024 Health Maintenance Due Date Last Done Comments [...] 07/05/2021, Additional history exists GFR 03/30/2025 07/30/2024, 09/0 03/2024, 02/05/2023, Additional history exists [...] Not on filedocumented as of this encounter Results * (ABNORMAL) COMPREHENSIVE METABOLIC PANEL (07/30/2024 12:30 PM EST) BUN 6 6 - 20 mg/dL 07/30/2024 1:37 PM EST [facility] [place] [facility] CREATININE 0.8 0.5 - 1.0 mg/dL 07/30/2024 1:37 PM EST [facility] [place] [facility] EGFR 80 >=60 mL/min 07/30/2024 1:37 PM EST [facility] [place] [facility] Comment:eGFR is calculated b ased on the CKD-EPI 2020 equation. SODIUM 134(L) 135 - 146 mmol/L 07/30/2024 1:37 PM EST [facility] [place] [facility] POTASSIUM 3.6 3.5 - 5.1 mmol/L 07/30/2024 1:37 PM EST [facility] [place] [facility] CHLORIDE 98 98 - 107 mmol/L 07/30/2024 1:37 PM EST [facility] [place] [facility] CO2 23 22 - 32 mmol/L 07/30/2024 1:37 PM EST [facility] [place] [facility] ANION GAP 13 7 - 15 mmol/L 07/30/2024 1:37 PM EST [facility] [place] [facility] GLUCOSE 168(H) 70 - 120 mg/dL 07/30/2024 1:37 PM EST [facility] [place] [facility] Albumin 3.3(L) 3.8 - 5.0 g/dL 07/30/2024 1:37 PM EST [facility] [place] [facility] AST 86(H) 10 - 35 U/L 07/30/2024 1:37 PM EST [facility] [place] [facility] Alkaline Phosphatase 440(H) 35 - 130 U/L 07/30/2024 1:37 PM EST [facility] [place] [facility] Bilirubin, Total 0.9 <=1.2 mg/dL 07/30/2024 1:37 PM EST [facility] [place] [facility] CALCIUM 8.8 8.4 - 10.2 mg/dL 07/30/2024 1:37 PM EST [facility] [place] [facility] Protein 7.0 6.0 - 8.3 g/dL 07/30/2024 1:37 PM EST [facility] [place] [facility] ALT 53(H) 10 - 35 U/L 07/30/2024 1:37 PM EST [facility] [place] [facility] Blood Venous blood specimen / Unknown Venipuncture / Unknown 07/30/2024 12:30 PM EST 07/30/2024 12:30 PM EST us Alexandro Rose MD LAB BLOOD ORDERABLES Fin al Result [facility] [place] [facility] [address] [place] [address] documented in this encounter Visit Diagnoses Diagnosis Other ascites- Primary Cirrhosis of liver with ascites, unspecified hepatic cirrhosis type (HCC) Type 2 diabetes mellitus with hemoglobin A1c goal of less than 8.0% (HCC) Diabetic polyneuropathy associated with type 2 diabetes mellitus (HCC) documented in this encounter Care Teams Process Design Engineer Relationship Specialty Start Date End Date Alexandro Rose MD [address] [place] [address] PCP - General Family Medicine 05/01/24 documented as of this encounter"
--- OUTSIDE RECORDS SUMMARY | 2024-08-04 15:20 | External Medical Summary | Summary of Care ---
Author Name Unknown Organization [facility] Address [address] [place] [address] Phone [phone] Care Team Providers Care Sort Line Name Role Phone Alexandro Rose MD Primary Care Provider + Encounter Details Date Type Department Care Team (Late st Contact Info) Description 07/30/2024 Telephone Family Practice [facility] [address] [facility] [place] [address] Karla Woodard RN [address] [place] [address] Allergies No known active allergiesdocumented as of [...] diabetic peripheral angiopathy without gangrene, unspecified whether snf insulin use (HCC) Take 1 Tablet by [...] goal of less than 8.0% ([facility]) USE 1 TO CHECK GLUCOSE up to 4 TIMES DAILY DIRECTED E11.9 400 Each 1 4 Active OneTouch Verio In Vitro Strip (Glucose Blood)Indication s:Type 2 diabetes mellitus with hemoglobin A1c goal of less than 8.0% ([facility]) Test blood sugars up to 4 times [...] cirrhosis type (HCC) take 1 tablet in tea bag machine tender then 1 tab 6 hours later. Take [...] switch to traz 100mg BID 01/03 referred scrap piler for pap under sedation. DECLINES colonoscopy 09/04-declined [...] Obesity protocol #1 OTOGENIC PAIN, LEFT 11/10/2003 01/12/20 12 DYSFUNCT EUSTACHIAN TUBE 11/10/200311/2016 Chronic rhinitis [...] encounter Miscellaneous Notes * Telephone Encounter - Karla Woodard RN - 07/30/2024 2:08 PM EST At the request of Dr Rose, this CM called patient to discuss a referral to [facility] to help with patient's sudden onset of health problems and high risk of hospital admission. Called and spoke with patient. She is alert, oriented. Patient very angry on the phone, not wantingto listen to what this CM had to say about benefits to her of [facility] program. Patient verbally aggressive on phone and then disconnected the call. Dr Damaske notified. documented in this encounter Plan of Treatment Upcoming Encounters Date Type Department Care Team (Late st Contact Info) Description 08/04/2024 2:00 PM EST Office Visit [facility] [address] [place] [address] Alexandro Rose MD [address] [place] [address] 12/02/2024 9:00 AM EDT Office Visit [facility] [address] [place] [address] Alexandro Rose MD [address] [place] [address] 04/30/2025 9:00 AM EDT Office Visit [facility] [address] [place] [address] Alexandro Rose MD [address] [place] [address] Health Maintenance Due Date Last Done Comments [...] filedocumented as of this encounter Care Teams Sort Line Relationship Specialty Start Date End Date Alexandro Rose MD [address] [place] [address] PCP - General Family Medicine 05/01/24 documented as of this encounter
--- OUTSIDE RECORDS SUMMARY | 2024-08-04 15:20 | External Medical Summary | Summary of Care ---
Author Name Unknown Organization [facility] Address [address] [place] [address] Phone [phone] Care Team Providers Care Necktie Maker Name Role Phone Alexandro Rose MD Primary Care Provider + Reason for Visit * Reason Onset Date Comments Appointment 07/30/2024 Encounter Details Date Type Department Care Team (Late st Contact Info) Description 07/30/2024 Telephone Gastroenterology, [facility] [address] [place] [address] Jessica Blackwell CRNP [address] [place] [address] Appointment Allergies No known active allergiesdocumented as of [...] A1c goal of less than 8.0% ([facility]) USE 1 TO CHECK GLUCOSE up to 4 TIMES DAILY DIRECTED E11.9 400 Each 1 4 Active OneTouch Verio In Vitro Strip (Glucose Blood)Indication s:Type 2 diabetes mellitus with hemoglobin A1c goal of less than 8.0% ([facility]) Test blood sugars up to 4 times [...] cirrhosis type (HCC) take 1 tablet in machine plaster mixer then 1 tab 6 hours later. Take [...] switch to traz 100mg BID 01/03 referred inbound sales consultant for pap under sedation. DECLINES colonoscopy 09/04-declined [...] No 11/11/2023 Does the household have a [employer] source of income? (Household - for ages [...] encounter Miscellaneous Notes * Telephone Encounter - Jessica Blackwell CRNP - 07/30/2024 1:01 PM EST Spoke w Dr. Bonilla about this pt. New ascites, CT w IV contrast at [facility] w new cirrhosis. [place] skin on abdomen, tx w Augmentin w [...] Description 08/04/2024 2:00 PM EST Office Visit [facility] [address] [place] [address] Alexandro Rose MD [address] [place] [address] 12/02/2024 9:00 AM EDT Office Visit [facility] [address] [place] [address] Alexandro Rsoe MD [address] [place] [address] 04/30/2025 9:00 AM EDT Office Visit [facility] [address] [place] [address] Alexandro Rose MD [address] [place] [address] Health Maintenance Due Date Last Done Comments [...] 01/15/2018, Additional history exists HbA1c 09/27/2024 03/30/2024, 0203/2024, 05/27/2023, Additional history exists Depression Monitoring 11/10/2024 [...] filedocumented as of this encounter Care Teams Necktie Maker Relationship Specialty Start Date End Date Alexandro Rose MD [address] [place] [address] PCP - General Family Medicine 05/01/24 documented as of this encounter
--- OUTSIDE RECORDS SUMMARY | 2024-08-04 15:20 | External Medical Summary ---
Author Name Unknown Address Unknown Organization K0G:[facility] [address] - [address] [place] [address] Laboratory Report Ordering Provider Test Date Status KELLEN ACKERMAN 07/30/2024 12:30:15 Final Observation Date Value Abnormality Reference (Units ) Status BUN 07/30/2024 12:30:15 6 6-20 (mg/dL) Final Creatinine 07/30/2024 12:30:15 0.8 0.5-1.0 (mg/dL) Final Glomerular filtration rate/1.73 sq M.predicted [Volume Rate/Area] in Serum, Plasma or Blood by Creatinine-based formula (CKD-EPI) 07/30/2024 12:30:15 80 >=60 (mL/min) Final eGFR is calculated based on the CKD-EPI 2020 equation. Sodium 07/30/2024 12:30:15 134 Below low normal 135 -146 (mmol/L) Final Potassium 07/30/2024 12:30:15 3.6 3.5-5.1 (m mol/L) Final Cl 07/30/2024 12:30:15 98 98-107 (mm ol/L) Final CO2 07/30/2024 12:30:15 23 22-32 (mmo l/L) Final Anion gap 07/30/2024 12:30:15 13 7-15 (mmol /L) Final Glucose 07/30/2024 12:30:15 168 Above high normal 70 -120 (mg/dL) Final Albumin 07/30/2024 12:30:15 3.3 Below low normal 3.8 -5.0 (g/dL) Final AST (Aspartate aminotransferase) 07/30/2024 12:30:15 86 Above high normal 10-35 (U/L) Final Alk Phos 07/30/2024 12:30:15 440 Above high normal 35 -130 (U/L) Final Bilirubin, Total 07/30/2024 12:30:15 0.9 <=1 .2 (mg/dL) Final Calcium 07/30/2024 12:30:15 8.8 8.4-10.2 ( mg/dL) Final Protein 07/30/2024 12:30:15 7.0 6.0-8.3 (g /dL) Final ALT (Alanine aminotransferase) 07/30/2024 12:30:15 53 Above high normal 10-35 (U/L) Final Performing Location [facility] - [address] [facility] [address]
--- OUTSIDE RECORDS SUMMARY | 2024-08-04 15:20 | External Medical Summary ---
Author Name Unknown Address Unknown Organization K01:LAB[facility]ATORY [facility] - [address] [place] [id number] Laboratory Report Ordering Provider Test Date Status KELLEN ACKERMAN 07/30/2024 12:30:15 Final Observation Date Value Abnormality Reference (Units ) Status TSH 07/30/2024 12:30:15 6.23 Above high normal 0. 27-4.20 (uIU/mL) Final Performing Location [facility] - [address] [place] [id number]
--- OUTSIDE RECORDS SUMMARY | 2024-08-04 15:20 | External Medical Summary ---
Author Name Unknown Address Unknown Organization K01:LABORATORY [facility] - [address] [place] [address] Laboratory Report Ordering Provider Test Date Status KELLEN ACKERMAN 07/30/2024 12:30:15 Final Observation Date Value Abnormality Reference (Units ) Status Folic Acid 07/30/2024 12:30:15 9.0 >4.5 (ng/ mL) Final Performing Location [facility] - [address] [place] [address]
--- OUTSIDE RECORDS SUMMARY | 2024-08-04 15:21 | External Medical Summary | Summary of Care ---
Author Name Unknown Organization [facility] Address [address] [place] [address] Phone [phone] Care Team Providers Care Zipper Setter Lockstitch Name Role Phone Alexandro Foreman MD Primary Care Provider + Reason for Visit * Reason Onset Date Comments Medication Refill 07/21/2024 Encounter Details Date Type Department Care Team (Late st Contact Info) Description 07/21/2024 Refill [facility] [address] [place] [address] Alexandro Foreman MD [address] [address] Encounter for long-term (current) use of medications*; MDD (recurrent major depressive disorder) in remission ([facility]); Type 2 diabetes mellitus with diabetic peripheral angiopathy without gangrene, unspecified whether superintendent container terminal insulin use (HCC); Gastroesophageal reflux disease without esophagitis Allergies No known active allergiesdocumented as of this encounter (statuses as of 07/27/2024) Medications Aspirin EC 81 MG Oral Tablet [...] FOR PAIN. 270 Tablet 1 4 Active Sulfamethoxazole -Trimethoprim 800-160 MG Oral Tablet (Bactrim DS)Indications:C ellulitis of abdominal wall Take 1 Tablet by mouth in the morning and 1 Tablet before bedtime. Do all this for 10 days. Until gone.. 20 Tablet 07/20/2024 11:17 AM EST 4 07/30/19 25 Active Atorvastatin Calcium 20 MG Oral Tablet [...] diabetic peripheral angiopathy without gangrene, unspecified whether fdc insulin use (HCC) Take 1 Tablet by [...] major depressive disorder) in remission ([facility]) TAKE ONE TABLET BY MOUTH BEFORE BEDTIME 90 Tablet 5 Active OneTouch Delmartha Lancets 33GIndications:T ype 2 diabetes mellitus with [...] directed E11.9 400 Strip 1 4 Active Atorvastatin Calcium 20 MG Oral Tablet (Lipitor) Take 1 Tablet by mouth in the morning. In the morning.. 90 Tablet 3 4 07/21/20 24 Discontinu ed(Refill) Doxepin HCl 25 MG Oral Capsule (SINEquan)Indica tions:MDD (recurrent major depressive disorder) in remission (HCC) TAKE ONE CAPSULE BY MOUTH EVERY DAY IN THE MORNING AND FOUR CAPSULES AT BEDTIME 450 Capsule 3 4 07/21/20 24 Discontinu ed(Refill) metFORMIN HCl ER 500 MG Oral Tablet Extended Release 24 Hour (Glucophage XR)Indications:T ype 2 diabetes mellitus with diabetic peripheral angiopathy without gangrene, unspecified whether superintendent container terminal insulin use (HCC) Take 1 Tablet by mouth in the morning. 90 Tablet 3 4 07/21/20 24 Discontinu ed(Refill) Pantoprazole Sodium 40 MG Oral Tablet Delayed Release (Protonix)Indica tions:Gastroesop hageal reflux disease without esophagitis TAKE ONE TABLET BY MOUTH EVERY DAY 30 MINUTES BEFORE THE FIRST MEAL OF THE DAY DO NOT CRUSH, CUT OR CHEW 90 Tablet 3 4 07/21/20 24 Discontinu ed(Refill) traZODone HCl 100 MG Oral Tablet (Desyrel)Indicat ions:MDD (recurrent major depressive disorder) in remission (HCC) TAKE ONE TABLET BY MOUTH BEFORE BEDTIME 90 Tablet 3 4 07/21/20 24 Discontinu ed(Refill) documented as of this encounter (statuses as of 07/27/2024) Active Problems Problem Noted Date Diagnosed Date [...] switch to traz 100mg BID 01/03 referred [facility] for pap under sedation. DECLINES colonoscopy 09/04-declined [...] as of this encounter (statuses as of 07/27/2024) Resolved Problems Problem Noted Date Diagnosed Date [...] as of this encounter (statuses as of 07/27/2024) Immunizations Name Administration Dates Next Due Diptheria/Tetanus [...] encounter Miscellaneous Notes * Telephone Encounter - Kelsea Gutierrez - 07/27/2024 3:34 PM EST Received message from [facility] regarding patient needing labs. Patient was notified. Successfully contacted patient and provided [facility] message. * Telephone Encounter - Carin Das [facility] - 07/23/2024 2:14 PM ESTSigned Prescriptions: Disp Refills Atorvastatin Calcium 20 MG Oral Tablet (Li*90 Tab*3 Sig: Take 1 Tablet by mouth in the morning. In the morning.. Authorizing Provider: ALEXANDRO FOREMAN Ordering User: CARIN DAS Doxepin HCl 25 MG Oral Capsule (SINEquan) 450 Ca*3 Sig: TAKE ONE CAPSULE BY MOUTH EVERY DAY IN THE MORNING AND FOUR CAPSULES AT BE DTIME Authorizing Provider: ALEXANDRO FOREMAN Ordering User: CARIN DAS metFORMIN HCl ER 500 MG Oral Tablet Extend*90 Tab*3 Sig: Take 1 Tablet by mouth in the morning. Authorizing Provider: ALEXANDRO FOREMAN Ordering User: CARIN DAS Pantoprazole Sodium 40 MG Oral Tablet Linad*90 Tab*3 Sig: TAKE ONE TABLET BY MOUTH EVERY DAY 30 MINUTES BEFORE THE FIRST MEAL OF DO NOT CRUSH, CUT OR CHEW Authorizing Provider: ALEXANDRO FOREMAN Ordering User: CARIN DAS traZODone HCl 100 MG Oral Tablet (Desyrel) 90 Tab*0 Sig: TAKE ONE TABLET BY MOUTH BEFORE BEDTIME Authorizing Provider: ALEXANDRO FOREMAN Ordering User: CARIN DAS * Telephone Encounter - Carin Das [facility] - 07/23/2024 2:11 PM EST Provided 90 days supply with 0 refill(s). Reviewed AMP report, Care Gaps/Health Maintenance, medications list, and for any routine labs typically ordered for this patient. Lab orders placed 04-03-24,07-23-24. Please contact patient to advise of labs ordered for blood draw. Recommend patient to fast if able for labs. Patient may still have water and regular medications. Advise to obtain labs approx 10-01-24. Becky Pearson.Ph. Clinical Pharmacist [facility] [address] [place] [address]: [phone] 07/23/2024,2:11 PM * Telephone Encounter - Efrain Smith tank officer - 07/21/2024 10:59 AM EST Did you pend patient's preferred pharmacy and medication before forwarding?yes [facility] [address] [address] [place] Pending Prescriptions: Disp Refills Atorvastatin Calcium 20 MG Oral Tablet (L*90 Tab*3 Sig: Take 1 Tablet by mouth in the morning. In the morning.. Doxepin HCl 25 MG Oral Capsule (SINEquan) 450 Ca*3 Sig: TAKE ONE CAPSULE BY MOUTH EVERY DAY IN THE MORNING AND FOUR CAPSULES AT BEDTIME metFORMIN HCl ER 500 MG Oral Tablet Exten*90 Tab*3 Sig: Take 1 Tablet by mouth in the morning. Pantoprazole Sodium 40 MG Oral Tablet Del*90 Tab*3 Sig: TAKE ONE TABLET BY MOUTH EVERY DAY 30 MINUTES BEFORE THE FIRST MEAL OF THE DAY DO NOT CRUSH, CUT OR CHEW traZODone HCl 100 MG Oral Tablet (Desyrel)90 Tab*3 Sig: TAKE ONE TABLET BY MOUTH BEFORE BEDTIME Last Visit: 07/20/2024 (in office), 06/08/2020 (telemedicine) Next Visit: 07/30/2024 If no future appointments scheduled, and last appointment is greater than a year ago, please schedule patient for a follow-up appointment Last date the medication was ordered: 08/12/2023 Is this request for a controlled substance?No Urine Drug Screen:No results found for this or any previous visit. Patient Phone Numbers [employer] [phone] Labs: Lab Results Component Value Date/Time CREAT 0.7 03/30/2024 08:28 AM CREAT 0.9 02/10/2020 08:36 AM POTASSIUM 4.5 03/30/2024 08:28 AM POTASSIUM 4.5 02/10/2020 08:36 AM TSH 5.99 (H) 03/28/2021 10:06 AM LDL 101 03/30/2024 08:28 AM LDL 93 08/12/2020 08:37 AM LDL 104 02/10/2020 08:36 AM LDLCALC 152 04/27/2011 10:35 AM ALT 52 (H) 02/05/2023 09:26 AM ALT 49 (H) 08/12/2020 08:37 AM HGBA1C 7.1 (H) 03/30/2024 08:28 AM HGBA1C 6.9 (H) 02/10/2020 08:36 AM documented in this encounter Plan of Treatment Upcoming Encounters Date Type Department Care Team (Late st Contact Info) Description 07/30/2024 11:40 AM EST Office Visit [facility] [address] [place] [address] Alexandro Foreman MD [address] [place] [address] 12/02/2024 9:00 AM EDT Office Visit [facility] [address] [place] [address] Alexandro Foreman MD [address] [place] [address] 04/30/2025 9:00 AM EDT Office Visit [facility] [address] [place] [address] Alexandro Foreman MD [address] [place] [address] Scheduled Orders Name Type Priority Associated Diagnoses Orde r Schedule AST Lab Routine Encounter for long-term (current) use of medications Expected: 10/01/2024 (Approximate), Expires: 07/23/2025 ALT Lab Routine Encounter for long-term (current) use of medications Expected: 10/01/2024 (Approximate), Expires: 07/23/2025 MAGNESIUM Lab Routine Gastroesophageal reflux disease without esophagitis Encounter for long-term (current) use of medications Expected: 10/01/2024 (Approximate), Expires: 07/23/2025 Health Maintenance Due Date Last Done Comments [...] 01/15/2018, Additional history exists HbA1c 09/27/2024 03/30/2024, 02/03/2024, 05/27/2023, Additional history exists Depression Monitoring 11/10/2024 [...] as of this encounter Visit Diagnoses Diagnosis Encounter for long-term (current) use of medications- Primary Encounter for long-term (current) use of other medications MDD (recurrent major depressive disorder) in remission (HCC) Major depressive disorder, recurrent episode, in partial or unspecified remission Type 2 diabetes mellitus with diabetic peripheral angiopathy without gangrene, unspecified whether fdc insulin use (HCC) Gastroesophageal reflux disease without esophagitis Esophageal reflux documented in this encounter Care Teams Zipper Setter Lockstitch Relationship Specialty Start Date End Date Alexandro Foreman MD [address] [place] [address] PCP - General Family Medicine 05/01/24 documented as of this encounter
--- OUTSIDE RECORDS SUMMARY | 2024-08-04 15:21 | External Medical Summary ---
Author Name Unknown Address Unknown Organization K01:LABORATORY [facility] - [address] [place] [address] Laboratory Report Ordering Provider Test Date Status LUCIE MCKENZIE 07/20/2024 11:19:00 Final Observation Date Value Abnormality Reference (Units ) Status Bacteria identified in Specimen by Culture 07/20/2024 11:19:00 [id number]^STAPHY LOCOCCUS AUREUS Abnormal Final Many Staphylococcus aureus Performing Location LABORATORY [facility] - [address] [place] [address] Ordering Provider Test Date Status LUCIE MCKENZIE 07/20/2024 11:19:00 Final Observation Date Value Abnormality Reference (Units ) Status Clindamycin 07/20/2024 11:19:00 <=0.25 Susceptible Final Erythromycin susceptibility 07/20/2024 11:19:00 <=0.25 Susceptible Final Oxacillinsusceptibility 07/20/2024 11:19:00 0.5 Susceptible Final Tetracyclinesusceptibility 07/20/2024 11:19:00 <=1 Susceptible Final TMP-SMZ susceptibility 07/20/2024 11:19:00 <=10 Susceptible Final Vancomycinsusceptibility 07/20/2024 11:19:00 <=0.5 Susceptible Final Test: Culture, Wound, Superf icial, Aerobic
Specimen Source: Abdomen
Specimen Type: Superficial Wound
Specimen Date: 07/20/2024 1119
Result Date: 07/23/2024 1437
Result Status: Final result
Abnormal: Yes
Resulting Lab: LABORATORY [facility]
[address]
[place] [address]

CULTURE

Many Staphylococcus aureus (Abnormal)

SUSCEPTIBILITY

Staphylococcus
aureus
METHOD MICROBROTH
DILUTIONS

CLINDAMYCIN <=0.25 Susceptible
ERYTHROMYCIN <=0.25 Susceptible
OXACILLIN 0.5 Susceptible
TETRACYCLINE <=1 Susceptible
TRIMETH/SULFAMETHOXAZOLE <=10 Susceptible
VANCOMYCIN <=0.5 Susceptible

null Performing Location LABORATORY [facility] - [address] [place] [address]
--- NOTE | 2024-08-04 15:38 | Gastrointestinal Consultation ---
Date of Consultation August 04, 2024 Assessment & Plan (1) Decompensated cirrhosis: - patient is ordered to have a paracentesis. will await this. - check chronic liver disease labs. - check hep panel. - she will likely need EGD at one point for variceal screening. - recommend 2 gm low sodium diet. - avoid hepatotoxic medications. - await stool studies. - monitor hgb/hct given reports of dark stool recently. - will continue to follow and monitor. Supervising Physician Co-Signing Physician Notes Reviewed with NIC Jolly. Patient has ascites cirrhosis currently would label as cryptogenic. Denies significant alcohol ingestion. 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 Will need further workup for cryptogenic cirrhosis including autoimmune markers iron stores serologies for viruses. Patient somewhat noncompliant. States she just wants to be tapped and go home. Did review with her that she has serious decompensated liver disease at present. Etiology of her liver disease management of her ascites exclusion of SBP and looking into the dark stools she reports which may be portal gastropathy or variceal bleeding is important. Highly probable she will deterioration if discharged without recommended evaluation. Told the patient probably 3 to 4 days minimum to complete workup. Not clear that she will cooperate. Though I did note the importance. Patient currently to go for paracentesis. Will analyze the fluid to confirm transudative in nature. With dark stools and portal hypertension with varices and EGD also would be appropriate Patient is significantly ill and at risk of deterioration, she does not appear to be confused have encephalopathy, worried about her 9-week-old puppy at home History of Present Illness Reason for Consultation: cirrhosis Requesting Physician: Layla Maldonado [facility] History of Present Illness Patient is an uncooperative 58 year old female who presented to the ED for SOB and a 30 lb weight gain since May 2024. She is very hard to get information from during our encounter. During her work up she had imaging suggestive of cirrhosis which she says is new for her. She has no past history of alcohol or drug use and becomes upset when asked about these. she does admit to tobacco use. She complains of abdominal pain that seems to have started when she was starting to accumulate fluid. she also reports diarrhea and notes she has "110" bowel movements a day. she does also report some darker stools recently. no brbpr. she was not sure if she had a colonoscopy or EGD before. 08/04/24 plts 115, t bili 1.1, AST 55, ALT 34, ALK 349. Allergies Allergy/AdvReac Type Severity Reaction Status Date / Time No Known Allergies Allergy Mild Unverified 10/28/06 13:31 Home Medications Medication Instructions Recorded Confirmed Type aspirin 81 mg tablet,delayed 81 mg PO DAILY 08/04/24 08/04/24 History release atorvastatin 20 mg tablet 20 mg PO DAILY 08/04/24 08/04/24 History doxepin 25 mg capsule 25 mg PO BID 08/04/24 08/04/24 History furosemide 40 mg tablet 40 mg PO BID 08/04/24 08/04/24 History metformin 500 mg tablet,extended 500 mg PO DAILY 08/04/24 08/04/24 History release 24 hr pantoprazole 40 mg tablet,delayed 40 mg PO DAILY 08/04/24 08/04/24 History release potassium chloride 20 mEq 20 meq PO BID 08/04/24 08/04/24 History tablet,extended release spironolactone 100 mg tablet 100 mg PO DAILY 08/04/24 08/04/24 History trazodone 100 mg tablet 100 mg PO HS 08/04/24 08/04/24 History Patient History Medical History (Updated 08/04/24 @ 15:19 by Layla Maldonado PA-C) Tobacco use Asthma HLD (hyperlipidemia) T2DM (type 2 diabetes mellitus) Cirrhosis Surgical History No significant past surgical history Family History (Updated 08/04/24 @ 15:07 by Layla Maldonado PA-C) Other Family history unknown Social History (Updated 08/04/24 @ 15:07 by Layla Maldonado PA-C) Smoking Status: Current every day smoker Tobacco Type: Cigarettes Hx Alcohol Use: No Hx Substance Use: No Preferred Language: Citizen Of [place] marital status: Single Current Living Situation: Alone Feels Safe at Home: Yes Review of Systems Review of Systems: All systems reviewed & are unremarkable except as noted in HPI & below Physical Exam Constitutional: WD/WN, vitals as above Respiratory: normal respiratory effort, lungs clear to auscultation Cardiovascular: Rate/Rhythm: regular rate and regular rhythm Gastrointestinal (Abdomen): abdomen distended with ascites. normal bowel sounds. soft. b/l lower extremity edema. Psychiatric: Orientation: alert and oriented x 3 Results & Data Vital Signs (Past 12 Hours) Vital Signs Temp Pulse Resp BP Pulse Ox O2 Del Method 08/04/24 14:00 96 H 20 142/91 H 95 Room Air 08/04/24 13:03 94 H 21 95 Room Air 08/04/24 13:00 140/102 H 08/04/24 12:15 90 17 96 Room Air 08/04/24 12:00 139/81 08/04/24 12:00 94 H 17 139/81 97 Room Air 08/04/24 11:48 107 H 20 119/72 97 Room Air 08/04/24 11:39 97 H 08/04/24 11:37 94 H 20 96 Room Air 08/04/24 11:30 99 Room Air 08/04/24 11:01 98.4 F 96 H 20 125/67 95 Room Air 08/04/24 11:01 Room Air Coding Level of Care Code 26741 ER DEPT VISIT MOD LVL 4 Diagnoses Decompensated cirrhosis K72.90; K74.60
[2024-08-04 16:15] LABS: Partial Thromboplastin Ratio 0.9; Partial Thromboplastin Time 25 Seconds (21-31); Prothrombin Time 10.7 Seconds (9.0-12.0)
[2024-08-04 16:17] LABS: Ferritin 19.6 ng/ml (8-388)
[2024-08-04 16:29] LABS: Appearance Urine Clear (Clear); Bilirubin Urine Negative (Negative); Blood Urine Negative (Negative); Color Urine Yellow; Glucose Urine UA Negative (Negative); Ketones Urine Negative (Negative); Leukocyte Esterase Urine Negative (Negative); Nitrite Urine Negative (Negative); Protein Urine Negative (Negative); Specific Gravity Urine 1.008 (1.000-1.030); Urobilinogen Urine Negative (Negative); pH Urine 6.5 (4.5-7.5)
--- NOTE | 2024-08-04 16:48 | Ultrasound Report ---
INDICATION: Evaluate for portal vein thrombus. TECHNIQUE: Sonographic transabdominal grayscale, color Doppler and spectral analysis of the hepatic vasculature. COMPARISON: No relevant priors. FINDINGS: Hepatic veins, portal veins are patent. Hepatopedal flow in the portal vein. Peak systolic velocity in the portal vein 25 cm/s. IVC is patent. Hepatic artery is not well visualized, likely secondary to body habitus/cooperation with exam. IMPRESSION: Negative for portal vein thrombus. Electronically signed by Rico Portillo 08-04-2024 4:47 PM
[2024-08-04] MEDS ORDERED: DEXTROSE 50% 50 ML SYRINGE IV PRN (16:56)
[2024-08-04] MEDS ORDERED: GLUCAGON FOR INJ 1 MG VIAL SQ PRN (16:56)
[2024-08-04] MEDS ORDERED: GLUCOSE 10 TAB/TUBE PO PRN (16:56)
[2024-08-04] MEDS ORDERED: ONDANSETRON INJ 2 MG/ML 2 ML VIAL IV PRN (16:56)
[2024-08-04] MEDS ORDERED: CARBOHYDRATES FOR HYPOGLYCEMIA PO PRN (16:56)
[2024-08-04] MEDS ORDERED: GLUCOSE 40% GEL 15 GM TUBE PO PRN (16:56)
[2024-08-04] MEDS ORDERED: ACETAMINOPHEN 325 MG TAB PO PRN (16:56)
[2024-08-04] MEDS: INSULIN ASPART PER UNIT CHARGE SC SCH (17:14)
[2024-08-04] MEDS: SPIRONOLACTONE 100 MG TAB PO SCH (17:27)
[2024-08-04] MEDS: POTASSIUM CHLORIDE CRTAB 20 MEQ TABCR PO STA (17:27)
[2024-08-04] MEDS: traZODone HCL 100 MG TAB PO SCH (20:45)
[2024-08-04] MEDS: DOXEPIN HCL 25 MG CAPSULE PO SCH (20:45)
[2024-08-04] MEDS: POTASSIUM CHLORIDE CRTAB 20 MEQ TABCR PO SCH (20:47)
--- OUTSIDE RECORDS SUMMARY | 2024-08-05 03:40 | External Medical Summary | Summary of Care ---
Author Name Unknown Organization [facility] Address [address] [place] [address] Phone [phone] Care Team Providers Care Bat Carrier Name Role Phone Alexandro [place] MD Primary Care Provider + Reason for Visit * Reason Onset Date Comments FYI 07/30/2024 Encounter Details Date Type Department Care Team (Late st Contact Info) Description 07/30/2024 Telephone Family Practice [facility] [address] [place] [address] Karla Woodard RN [address] [place] [address] FYI Allergies No known active [...] diabetic peripheral angiopathy without gangrene, unspecified whether skilled nursing insulin use (HCC) Take 1 Tablet by [...] hemoglobin A1c goal of less than 8.0% ([facility]) USE 1 TO CHECK GLUCOSE up to 4 TIMES DAILY DIRECTED E11.9 400 Each 1 4 Active OneTouch Verio In Vitro Strip (Glucose Blood)Indication s:Type 2 diabetes mellitus with hemoglobin A1c goal of less than 8.0% ([facility]) Test blood sugars up [...] cirrhosis type (HCC) take 1 tablet in veneer clipper then 1 tab 6 hours later. Take [...] switch to traz 100mg BID 01/03 referred bookkeeping machine mechanic for pap under sedation. DECLINES colonoscopy 09/04-declined [...] encounter Miscellaneous Notes * Telephone Encounter - Caitlyn Kang LPN - 08/04/2024 10:52 AM EST Checked [employer]. Pt is in ER currently due to SOB * Telephone Encounter - Macros Truong OSA - 08/04/2024 9:00 AM EST Patient calling back to cancel her appointment for today. Patient states she is going to the hospital unable to get any information/ Patient disconnected the call very upset. * Telephone Encounter - Karla Woodard RN - 07/30/2024 2:08 PM EST At the request of Dr [place], this CM called patient to discuss a referral to [facility] Home to help with patient's sudden [...] Description 12/02/2024 9:00 AM EDT Office Visit [facility] [address] [address] Alexandro [place] MD [address] [address] 01/13/2025 9:20 AM EDT Office Visit Hepatology, [facility] [address] [address] Sally Finley DO [address] [address] 04/30/2025 9:00 AM EDT Office Visit [facility] [address] [place] [address] Alexandro [place] MD [address] [place] [address] Health Maintenance Due Date Last Done Comments [...] filedocumented as of this encounter Care Teams Bat Carrier Relationship Specialty Start Date End Date Alexandro [place] MD [address] [address] PCP - General Family Medicine 05/01/24 documented as of this encounter
[2024-08-05] MEDS: PANTOprazole 40 MG TAB PO SCH (08:06)
[2024-08-05] MEDS: ASPIRIN 81 MG ECTAB PO SCH (08:06)
[2024-08-05] MEDS: FUROSEMIDE 40 MG TAB PO SCH (08:06)
[2024-08-05 08:08] LABS: Hematocrit (blood only) 30.3 % (37.0-47.0); Hemoglobin 9.8 g/dl (12.0-16.0); Mean Corpuscular Hemoglobin 30.9 pg (25.0-34.0); Mean Corpuscular Hgb Conc 32.3 g/dL (32.0-36.0); Mean Corpuscular Volume 95.6 fL (80.0-100.0); Mean Platelet Volume 10.5 fL (9.4-12.4); Platelet Count 98 K/uL (130-400); RDW Standard Deviation 53.1 fL (36.4-46.3); Red Blood Count 3.17 M/uL (4.20-5.40); White Blood Count 6.13 K/ul (4.8-10.8)
[2024-08-05 08:09] LABS: BUN Creatinine Ratio 11.6 (10-20); Calcium 8.4 mg/dl (8.6-10.3); Creatinine Clr Calc Pharmacy 97.5 ml/min; Potassium 4.1 mmol/L (3.5-5.1)
[2024-08-05 08:43] LABS: Estimated Average Glucose 105 mg/dl; Hemoglobin A1C 5.3 % (4.5-5.6)
[2024-08-05 09:15] LABS: Hep B Surface Ag with confirm Negative (Negative)
--- NOTE | 2024-08-05 10:01 | Hospitalist Progress Note ---
Date of Service August 05, 2024 Assessment & Plan (1) Decompensated cirrhosis: (2) Abdominal ascites: (3) T2DM (type 2 diabetes mellitus): Plan This is a 58-year-old female who has a significant past medical history of T2DM, diabetic polyneuropathy, HLD, asthma and depression who presents to ED secondary to worsening shortness of breath and increasing abdominal distention over the last several weeks. New onset decompensated liver cirrhosis admit to [facility] Cirrhosis work up including echo, Ferritin/Transferrin WNL, PTT, PT/INR WNL TSH WNL Acute Hep panel, Spep, autoimmune markers pending Diagnostic and therapeutic paracentesis today with fluid analysis Lasix IV 40mg BID with KCL + Aldactone 100mg daily consult gastroenterology --CT a/p:Cirrhosis with stigmata of portal venous hypertension re demonstrated including splenomegaly with moderate ascites and abdominal varicosities.2. Areas of large and small bowel wall thickening again noted, likely portal enteropathy and colopathy with infectious etiology considered less likely. continue PPI Continue work up per GI Umbilical hernia --Ct shows no incarceration she will need Gen surgery eval as outpatient abdominal wall erythema in the setting of distension and varicosities not a true cellulitis T2DM- last a1c 7.2 in March, today its 5.3, hold metformin, ISS per protocol, if BSG remain stable could d/c ISS HLD: chronic, stable, hold statin for now DVT ppx: SCDS in light of paracentesis tomorrow FULL CODE PCP: Rose Dispo: admit to [facility] Pt was seen and examined in collaboration with Dr. Pike, please see addendum I spent a total of 51 minutes reviewing notes, outpatient records, labs, medication, coordinating, documenting and providing care for this patient excluding time spent in the performance of separately billed services. Admission and Anticipated Discharge Date Admission Date: August 04, 2024 Supervising Physician Co-Signing Physician Notes Patient seen and examined I spent a total of 35 minutes coordinating, documenting and providing care for this patient excluding time spent in performance of separately billed services Subjective Pt seen in room 275-1. She is hungry and wants to eat. 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 She continues to feel " with triplets and like a beached whale." She reports abd distension/discomfort, difficulty sitting up in bed due to fluiid, SOB with exertion. She denies f/c/s, chest pain, n/v. SHe has not had a BM since admission. Review of Systems Review of Systems: All systems reviewed & are unremarkable except as noted in HPI & below Physical Exam Physical Exam: Gen: WD/WN, F, NAD, A&O x3 HEENT: Normocephalic, atraumatic, conjunctivae moist, sclerae anicteric, mucous membranes moist. Lung: Clear to Auscultation bilaterally, b/l rhonchi, no w/rales Heart: Regular rate, regular rhythm, no murmurs, rubs, or gallops Abdomen: significant distended abd with large reducible umbilical hernia, lower abd venous stasis, Soft, NT, decreased BS Extremities: ++ lower ext edema Skin: Warm, no rash, negative turgor. Results & Data Results & Data Vital Signs (Past 12 Hours) Vital Signs Temp Pulse Pulse Resp BP Pulse Ox O2 Del Method 08/05/24 07:42 87 08/05/24 07:31 36.6 C 87 18 103/58 L 95 Room Air 08/05/24 04:27 36.5 C 84 20 101/60 92 Room Air 08/04/24 23:58 36.6 C 102 H 20 121/57 L 94 Room Air 08/04/24 23:16 93 H Laboratory Results Short CBC 08/04/24 08/05/24 Range/Units 11:25 07:20 WBC 8.69 6.13 (4.8-10.8) K/ul Hgb 10.8 L 9.8 L (12.0-16.0) g/dl Hct 33.7 L 30.3 L (37.0-47.0) % Plt Count 115 L 98 L (130-400) K/uL BMP 08/04/24 08/05/24 11:25 07:20 Sodium 134 L 135 L Potassium 3.4 L 4.1 D Chloride 99 102 Carbon Dioxide 30 28 BUN 8 8 Creatinine 0.72 0.69 Glucose 115 H 103 H Calcium 8.3 L 8.4 L Liver Function 08/04/24 Range/Units 11:25 Total Bilirubin 1.1 H (0.2-1.0) mg/dl AST 55 H (13-39) U/L ALT 34 (7-52) U/L Alkaline Phosphatase 349 H (34-104) U/L Albumin 3.2 L (3.4-5.0) gm/dl Urine 08/04/24 Range/Units 16:00 Urine Color Yellow Urine Appearance Clear (Clear) Urine pH 6.5 (4.5-7.5) Ur Specific [place] 1.008 (1.000-1.030) Urine Protein Negative (Negative) Urine Glucose (UA) Negative (Negative) I have independently reviewed and interpreted patient's cbc, bmp, a1c Medications Administered Current Inpatient Medications Acetaminophen (Acetaminophen 325 Mg Tab) 650 mg PO Q4H PRN PRN Reason: Pain or Fever Stop: 09/03/24 16:55 Aspirin (Aspirin 81 Mg Ectab) 81 mg PO DAILY FLAKO Stop: 09/04/24 08:59 Last Admin: 08/05/24 08:06 Dose: 81 mg Dextrose (Dextrose 50% 50 Ml Syringe) 25 - 50 ml IV UD PRN; Protocol PRN Reason: Hypoglycemia Protocol Stop: 09/03/24 16:55 Doxepin HCl (Doxepin Hcl 25 Mg Capsule) 25 mg PO BID FLAKO Stop: 09/03/24 20:59 Last Admin: 08/05/24 08:06 Dose: 25 mg Furosemide (Furosemide 40 Mg Tab) 40 mg PO BID17 FLAKO Stop: 09/04/24 08:59 Last Admin: 08/05/24 08:06 Dose: 40 mg Glucagon (Glucagon For Inj 1 Mg Vial) 1 mg SQ UD PRN; Protocol PRN Reason: Hypoglycemia Protocol Stop: 09/03/24 16:55 Glucose (Glucose 40% Gel 15 Gm Tube) 15 - 30 gm PO UD PRN; Protocol PRN Reason: Hypoglycemia Protocol Stop: 09/03/24 16:55 Glucose (Glucose 10 Tab/Tube) 4 - 8 tab PO UD PRN; Protocol PRN Reason: Hypoglycemia Protocol Stop: 09/03/24 16:55 Insulin Aspart (Insulin Aspart Per Unit Charge) 0 units SC ACHS FLAKO Stop: 09/03/24 16:55 Last Admin: 08/05/24 09:00 Dose: Not Given Miscellaneous (Carbohydrates For Hypoglycemia ) 15 - 30 gm PO UD PRN PRN Reason: Hypoglycemia Protocol Stop: 09/03/24 16:55 Ondansetron HCl (Ondansetron Inj 2 Mg/Ml 2 Ml Vial) 4 mg IV Q6H PRN PRN Reason: Nausea Stop: 09/03/24 16:55 Pantoprazole Sodium (Pantoprazole 40 Mg Tab) 40 mg PO DAILY FLAKO Stop: 09/04/24 08:59 Last Admin: 08/05/24 08:06 Dose: 40 mg Potassium Chloride (Potassium Chloride Crtab 20 Meq Tabcr) 20 meq PO BID FLAKO Stop: 09/04/24 20:59 Spironolactone (Spironolactone 100 Mg Tab) 100 mg PO DAILY FLAKO Stop: 09/03/24 17:14 Last Admin: 08/05/24 08:06 Dose: 100 mg Trazodone HCl (Trazodone Hcl 100 Mg Tab) 100 mg PO HS FLAKO Stop: 09/03/24 20:59 Last Admin: 08/04/24 20:45 Dose: 100 mg
[2024-08-05 10:13] LABS: Hep C Ab Rflx HepCQuant RNA Negative (Negative)
--- NOTE | 2024-08-05 10:17 | Gastroenterology Progress Note ---
Date of Service August 05, 2024 Assessment & Plan (1) Decompensated cirrhosis: Plan: Patient is for paracentesis today. she tells me she plans to sign out AMA afterwards. I advised against this. - await pending labs. - she has not alerted nursing to bowel movements so sample could not be sent. - would recommend eventual EGD for variceal screening given reports of dark stools. she has been declining. - continue with lasix 40mg bid and spironolactone 100mg daily. Admission and Anticipated Discharge Date Admission Date: August 04, 2024 Supervising Physician Co-Signing Physician Notes Hep B hep C serology looks negative. Ferritin level is low against hemochromatosis. Paracentesis looks like a transudate compatible with cirrhotic ascites. Cell count differential pending. Patient has a normal BUN and creatinine no albumin given post tap. Patient adamant that she will go home tomorrow. Did advise her that a workup and stabilization has not been achieved and there is risk of further liver deterioration recurrent ascites and kidney dysfunction. She is agreeable to be seen in an outpatient. We will attempt to arrange an appointment with her with [facility] hepatology. Because her follow- up post is questionable. I would be cautious with her diuretics. Would favor a lower dose even though this may not control her ascites but to decrease the likelihood that she would develop prerenal azotemia hyperkalemia and kidney dysfunction. Recommend discharge on 2 g sodium diet. Lasix 20 and Aldactone 50 mg. Should have a CMP done 1 week postdischarge. I would also make a prescription only for timeframe to appointment to the [facility] clinic. Autoimmune serologies pending. Though mash is probable etiology Subjective Patient is to have paracentesis today. she tells me she is planning to sign herself out AMA afterwards. large, loose bowel movement last evening. Had tommy colored stool this morning. no blood or melena reported. no nausea, vomiting, abdominal pain. hgb dropped from 10.8 to 9.8. hep Bs Antigen negative. rest of hep panel and autoimmune labs pending. Review of Systems Review of Systems: All systems reviewed & are unremarkable except as noted in HPI & below Physical Exam Constitutional: WD/WN, vitals as above Respiratory: normal respiratory effort, lungs clear to auscultation Cardiovascular: Rate/Rhythm: regular rate and regular rhythm Gastrointestinal (Abdomen): ascites. nontender. normal bowel sounds. Psychiatric: Orientation: alert and oriented x 3 Results & Data Results & Data Vital Signs (Past 12 Hours) Vital Signs Temp Pulse Pulse Resp BP Pulse Ox O2 Del Method 08/05/24 07:42 87 08/05/24 07:31 97.9 F 87 18 103/58 L 95 Room Air 08/05/24 04:27 97.7 F 84 20 101/60 92 Room Air 08/04/24 23:58 97.9 F 102 H 20 121/57 L 94 Room Air 08/04/24 23:16 93 H Coding Level of Care Code 32857 SUB INP/OBS CARE 2/35MIN Diagnoses Decompensated cirrhosis K72.90; K74.60
--- NOTE | 2024-08-05 13:53 | Ultrasound Report ---
ULTRASOUND-GUIDED PARACENTESIS CLINICAL HISTORY: Ascites PROCEDURE: Procedure and risks were explained. Informed consent was obtained. A final timeout was com pleted. The abdomen was prepped and draped in sterile fashion. 1% lidocaine was utilized for skin ane sthesia. Utilizing ultrasound guidance, a 5 Thai safety centesis catheter was advanced into the right lower quadrant pocket of ascites. Ultrasound images were obtained. 4.8 L of yellow-colored ascites fluid wa s removed and 1 L was sent to lab for analysis. The catheter was removed and Band-Aid applied. The pa tient tolerated the procedure well. Vital signs will be monitored postprocedure. IMPRESSION: Ultrasound-guided paracentesis as above. Performed, dictated, and signed by Efrain Paris PA-C; to be co-signed by Dr. Jono Mendez. Electronically signed by: Jono Mendez M.D. 08/05/2024 2:14 PM
[2024-08-05] MEDS: ALBUMIN 25% 25 GM/100 ML VIAL IV ONE (14:57)
[2024-08-05 15:16] LABS: Albumin Peritoneal Fluid < 1.5 gm/dl; LDH Peritoneal Fluid 31 U/L; Total Protein Peritoneal Fluid < 3.0 gm/dl
[2024-08-05 16:36] LABS: Appearance Peritoneal Fluid Clear; Color Peritoneal Fluid Pale Yellow; Lymphocytes, Fluid 52 %; Mono,Macrophage,Mesothelial 34 %; Neutrophils, Fluid 14 %; RBC Peritoneal Fluid Auto < 2000 /uL; WBC Peritoneal Fluid Auto 209 /ul (0-300)
--- NOTE | 2024-08-05 17:18 | Electrocardiogram Report ---
Test Reason : Blood Pressure : */* mmHG Vent. Rate : 99 BPM Atrial Rate : 99 BPM P-R Int : 134 ms QRS Dur : 66 ms QT Int : 356 ms P-R-T Axes : 76 64 72 degrees QTcB Int : 456 ms Sinus rhythm with frequent Premature atrial complexes and occasional Premature ventricular complexes Low voltage QRS Cannot rule out Anterior infarct , age undetermined Nonspecific T wave abnormality Abnormal ECG No previous ECGs available Confirmed by Mike Burton ([id number]) on 08/05/2024 5:17:56 PM Referred By: Confirmed By: Mike Burton
[2024-08-05] MEDS: POTASSIUM CHLORIDE CRTAB 20 MEQ TABCR PO SCH (20:42)
[2024-08-06] MEDS: COUGH DROP (SUGAR FREE) LOZ 24 LOZ/1 BOX BUCCAL PRN (07:34)
[2024-08-06 07:50] LABS: Basophils # (auto) 0.03 K/uL (0.00-0.20); Basophils % (auto) 0.5 %; Eosinophils # (auto) 0.09 K/uL (0.00-0.50); Eosinophils % (auto) 1.5 %; Hematocrit (blood only) 29.4 % (37.0-47.0); Hemoglobin 9.5 g/dl (12.0-16.0); Immature Granulocytes # (auto) 0.03 K/uL (0.01-0.20); Immature Granulocytes % (auto) 0.5 %; Lymphocytes # (auto) 2.26 K/uL (1.20-3.40); Lymphocytes % (auto) 38.8 %; Mean Corpuscular Hemoglobin 30.7 pg (25.0-34.0); Mean Corpuscular Hgb Conc 32.3 g/dL (32.0-36.0); Mean Corpuscular Volume 95.1 fL (80.0-100.0); Mean Platelet Volume 10.5 fL (9.4-12.4); Monocytes # (auto) 0.45 K/uL (0.11-0.59); Monocytes % (auto) 7.7 %; Neutrophils # (auto) 2.97 K/uL (1.40-6.50); Platelet Count 94 K/uL (130-400); RDW Coefficient of Variation 15.1 % (11.5-14.5); RDW Standard Deviation 52.7 fL (36.4-46.3); Red Blood Count 3.09 M/uL (4.20-5.40); White Blood Count 5.83 K/ul (4.8-10.8)
[2024-08-06 08:00] LABS: Albumin Globulin Ratio 0.9 (0.9-2); Bilirubin,Total 1.2 mg/dl (0.2-1.0); Calcium 8.6 mg/dl (8.6-10.3); Creatinine Clr Calc Pharmacy 97.5 ml/min; Globulin 3.5 gm/dl (2.5-4.0); Magnesium 1.8 mg/dl (1.7-2.4); Potassium 4.2 mmol/L (3.5-5.1); Total Protein 6.5 gm/dl (6.0-8.3)
--- NOTE | 2024-08-06 09:05 | Discharge Summary ---
Discharge Summary Date of Service August 06, 2024 Principal Dx & Hospital Course #1 = Principal Diagnosis (1) Decompensated cirrhosis: (2) Abdominal ascites: (3) T2DM (type 2 diabetes mellitus): Plan This is a 58-year-old female who has a significant past medical history of T2DM, diabetic polyneuropathy, HLD, asthma and depression who presents to ED secondary to worsening shortness of breath and increasing abdominal distention over the last several weeks and was found to have new onset decompensated liver cirrhosis. CT and/pelvis revealed cirrhosis with stigmata of portal venous hypertension re demonstrated including splenomegaly with moderate ascites and abdominal varicosities.2. Areas of large and small bowel wall thickening again noted, likely portal enteropathy and colopathy with infectious etiology considered less likely. Underwent paracentesis on 08/05 with 4.8 L removed. Patient much more comfortable today. Paracentesis cytology consistent with cirrhotic ascites and no SBP. 2D echo without wall motion abnormalities, EF 65- 70%, grade 1 diastolic dysfunction. Patient insisting on discharge home today despite both primary and GI service communicating that workup and stabilization has not yet been achieved. Patient is willing to continue work-up as an outpatient and understands the risk of worsening liver and kidney function as a result of leaving today. Ferritin/Transferrin, PTT, PT/INR and TSH all within normal limits. Acute Hep panel, SPEP, autoimmune markers are still pending but GI service feels [place] is probably etiology. Due to questionable follow up, GI service recommending more conservative approach to diuretics for now with 20mg Lasix daily and 50mg spironolactone daily until able to follow up as an outpatient. Continue PPI at time of discharge. Recommended to get repeat CMP within 1 week of discharge. Close follow up scheduled with [facility] GI service within 1 week as well as PCP. Continuing to hold statin due to elevated AST until follow up CMP next week so PCP can assess whether or not to resume. Umbilical hernia noted on exam and CT does not show incarceration. Recommend follow up with GI as outpatient. Notes For Next Care Provider Medication Changes From Visit 45 Admission HPI Per Admitting Provider This is a 58-year-old female who has a significant past medical history of T2DM, diabetic polyneuropathy, HLD, asthma and depression who presents to ED secondary to worsening shortness of breath and increasing abdominal distention over the last several weeks. Of significance patient was seen in ED on 07/21 secondary to diarrhea and abdominal wall cellulitis. At that point in time it was recommended she continue to take a course of Bactrim for which she was prescribed as outpatient. CT scan at the time showed diffuse ascites with evidence of cirrhosis. It was recommended patient be admitted to hospital for further workup; however, she declined due to needing to take care of the dogs. She also recently followed up in the outpatient setting and again was recommended ED evaluation, but further declined. Because of this she was started on Lasix 40 mg twice a daily, potassium supplement as well as Aldactone. Upon questioning patient gets easily frustrated and does not want to answer questions. She keeps reiterating that she cannot be admitted long as she has to return home to her dogs. She reports having coverage for her dogs throughout today. She states over the last several months she has noticed increased distention in her abdomen. She thought maybe she just ate too much over the holidays. She also notes increasing shortness of breath to the point she is unable to walk from 1 part of her house to the other without getting significantly short of breath. She does have lower extremity swelling, but feels this is unchanged. She also continues to experience redness and bulging of her umbilical hernia. She also feels that it is warm. She further reports continued loose stool and diarrhea. She states she moves her bowels and it is very watery every couple hours. She denies any black or tarry stool. She further denies any recent fever, chills, sweats, lightheadedness, dizziness, chest pain, palpitations, n/v or change in urinary habits. in ED patient underwent a CT abdomen pelvis which showed cirrhosis with stigmata of portal venous hypertension including splenomegaly with moderate ascites and abdominal varicosities. Areas of large and small bowel wall thickening again noted likely portal enteropathy [place] colopathy. Abdominal wall hernia again noted mostly fat filled. She denies any prior alcohol use or significant Tylenol use. She denies any prior history of blood transfusions or known diagnosis of hepatitis. She is unsure regarding her vaccination status and states, "that should be in my chart." She is unsure of her family history as she states that she grew up in a foster care. Admission Exam Per Admitting Provider Constitutional: WD/WN, vitals as above, NAD, sitting up in bed, pleasant, conversing easily Head: Normocephalic, Atraumatic Eyes: PERRL, conjunctivae normal, anicteric sclerae ENMT: external ear and nose normal, oropharynx normal Neck: trachea midline, no thyromegaly normal visual inspection Respiratory: normal respiratory effort, lungs clear to auscultation, no wheeze, rales, rhonchi. Normal insp/exp effort, no accessory muscle use Cardiovascular: RRR, no murmur, no edema Vessels: no JVD or carotid bruit Chest: normal inspection of chest Abdomen: normal bowel sounds, soft, nontender, no hepatosplenomegaly Musculoskeletal: no cyanosis or clubbing, extremities motor strength 5/5 Skin: no rashes, warm and dry normal turgor Neurologic: PERRL, EOMI, accommodation nl, no face palsy, no dysarthria CN's II-XI intact bilaterally and moves all extremities Psychiatric: A+Ox3, euthymic affect Lymphatic: no cervical or axillary lymphadenopathy : deferred Discharge Exam Gen: WD/WN, F, NAD, A&Ox3 HEENT: Normocephalic, atraumatic, conjunctivae moist, sclerae anicteric, mucous membranes moist Lung: Decreased breath sounds Heart: Regular rate, regular rhythm, no murmurs, rubs, or gallops Abdomen: Distended abdomen with large reducible umbilical hernia, lower abdominal venous stasis, soft, non-tender Extremities: 2+ BLE edema Skin: Warm, no rash Updated Medication List Medication Instructions Recorded Confirmed Type aspirin 81 mg tablet,delayed 81 mg PO DAILY 08/04/24 08/04/24 History release atorvastatin 20 mg tablet 20 mg PO DAILY 08/04/24 08/04/24 History doxepin 25 mg capsule 25 mg PO BID 08/04/24 08/04/24 History metformin 500 mg tablet,extended 500 mg PO DAILY 08/04/24 08/04/24 History release 24 hr pantoprazole 40 mg tablet,delayed 40 mg PO DAILY 08/04/24 08/04/24 History release trazodone 100 mg tablet 100 mg PO HS 08/04/24 08/04/24 History furosemide 40 mg tablet 20 mg (1/2 x 40 mg) PO DAILY #10 08/06/24 Rx tabs potassium chloride 20 mEq 20 meq PO DAILY #10 tabs 08/06/24 Rx tablet,extended release spironolactone 100 mg tablet 50 mg (1/2 x 100 mg) PO DAILY #10 08/06/24 Rx tabs Hospital Stay Data Consultations 08/04/24 14:16 ED Decision to Admit Stat 08/04/24 14:41 Consult Gastroenterology Routine Diagnostic Imagining Performed 08/04/24 11:37 CT Abd and Pelvis [CT abd pelvis IV con only] Stat 08/04/24 15:00 US duplex portal hepatic veins Stat 08/05/24 IR paracentesis abd w/img US Routine Pending Results Patient Have Any Pending Studies at Discharge: Yes Discharge Instructions Given to Patient (Per Discharging Provider) MEDICATION CHANGES: Continue lasix 20mg daily and spironolactone 50mg daily (different doses than before) until you follow up in clinic next week Hold atorvastatin for now given elevated liver enzymes - PCP to reassess next week after repeat labs SUMMARY OF TEST RESULTS: You were admitted to hospital for new onset liver cirrhosis. CT abdomen/pelvis with cirrhosis with stigmata of portal venous hypertension re demonstrated including splenomegaly with moderate ascites and abdominal varicosities.2. Areas of large and small bowel wall thickening again noted, likely portal enteropathy and colopathy with infectious etiology considered less likely. Underwent abdominal paracentesis on 08/05 with 4.8 L fluid removal PENDING TEST RESULTS: Acute Hep panel, SPEP, autoimmune markers pending RECOMMENDATIONS FOR FOLLOW-UP: Follow up with Dr. Rose on 08/10/2024 at 9:00 AM [place] PEREZ to call you and schedule appointment within 1 week to complete cirrhosis work-up and have medication adjustments. Please get labwork (CMP) within 1 week Continue low sodium diet (<2gm daily) Recommend seeing general surgery in the office for umbilical hernia OTHER INSTRUCTIONS: Seek medical attention if you have: * temperature above 101 * chest pain or trouble breathing * abdominal pain, nausea, vomiting * diarrhea, dark stools or bloody stools * any unanswered questions or concerns Call 911 if symptoms are severe. Please take good care of yourself. Call if you have any questions or problems. You can reach a [place] hospitalist on duty at [facility] 24 hours a day by calling [phone]. Total Time Total Time Spent Total Time Spent (In Minutes): 45 Supervising Physician Co-Signing Physician Notes Patient seen and examined I spent a total of 35 minutes coordinating, documenting and providing care for this patient excluding time spent in performance of separately billed services
== END 2024-08-06 09:35 | disposition home or self-care (01) | DRG 433 ==
LOC: ED 10:33 → SUATTDRO 14:53 → 2N 14:53

== ENCOUNTER 2025-02-22 10:55 | Inpatient (IN) ==
--- NOTE | 2025-02-22 11:20 | Emergency Department Note ---
Impression & Plan Umbilical hernia, Chronic hyponatremia, Cirrhosis, Anemia, SBP (spontaneous bacterial peritonitis), History of noncompliance with medical treatment ED Provider Note NAME: KAYLA MORROW AGE: 59 SEX: F : 1965 ARRIVES VIA: Walk-In INFORMANT: Patient ED PROVIDER(S): Nahun Mullins MD CHIEF COMPLAINT: Umbilical hernia, referred. PLAN: Disposition: Admit MEDICAL DECISION MAKING: The patient is a 59-year-old woman with a past medical history of cirrhosis secondary to [place], history of medical noncompliance who presents to the emergency department via walk-in referred by interventional radiology where she had an outpatient paracentesis performed and there was concern for worsening of her umbilical hernia. Patient reported that she noticed it was bigger and discolored. The patient is a poor historian however about when this had occurred. The patient was admitted to this facility by this provider on 02/13 for acute suspected upper GI bleed but the patient had unfortunately left AGAINST MEDICAL ADVICE. The patient's hernia at that time was large and protruding but had not shown any evisceration through the skin at that time. There was a pinhole noted that was draining serous/ascites fluid which the patient reports had been ongoing for an unknown amount of time and that her providers were aware of this. On evaluation patient no acute distress, afebrile stable vital signs. On examination the patient's umbilical hernia is notably different from her admission on 02/13 where it appears that there is evisceration of omentum and fat. Otherwise, abdomen is nontender. Patient's affect is labile and fluctuates from agitated cursing at staff to being cooperative. No asterixis. EKG without overt acute ischemia. WBC 11.7 K with neutrophilia but no left shift, nonspecific. H/H 6.6/20.1 decreased from recent admission with MCV of 87. Patient did consent to blood transfusion and 2 units of PRBCs ordered. INR is 0.9, within normal limits. Sodium 122, similar to prior range of values in the setting of chronic hyponatremia in the setting of her cirrhosis. Chemistry without metabolic acidosis. Initial lactic acid 2.3. Direct bilirubin 0.6, nonspecific with total bilirubin 1.0, within normal limits and AST and ALT within normal limits. Ammonia is not elevated. Procalcitonin is elevated at 1.01. Free T4 within normal limits. CT of the abdomen pelvis was performed and demonstrates patient's known cirrhosis with stigmata of portal hypertension. Additional characterization of large and small bowel consistent with portal enteropathy and portal colopathy is noted. Patient's chronic umbilical hernia is described with fat and ascitic filled umbilical hernia as well as supraumbilical hernia partially containing a nonobstructed loop of large bowel along with mesenteric fat. Per discussion with radiology clinical findings of omental evisceration is not easily seen given thin layer of skin and so is present on a clinical basis. Case was discussed with April Tidwell, general surgery MAKEDA with Dr. Garzon general surgery on-call. Appreciate consultation and recommendations. Given the patient's decompensated cirrhosis with evidence of portal hypertension and associated high risk for surgery recommends transfer to higher level of care for further surgical management. Unfortunately upon review with the patient the patient was adamant that she would not consent to being transferred. 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 General surgery was updated and patient maintained that she would not consent for transfer. Case was subsequently discussed with Case was discussed with Dr. Hebert, [facility] hospitalist, who evaluated the patient and was also unable to convince the patient to consent for transfer and so will admit the patient for further management, including possible psychiatric consultation and palliative consultation. Of note, it was identified that the patient's outpatient ascites analysis from her paracentesis morning did result and is consistent with SBP by cell counts with WBC 1700 and neutrophils of 73%. Gram stain demonstrated many WBCs but no organisms. Cultures pending. Further management per admitting team. Triage Nursing notes reviewed and agree them. Prior/external medical records reviewed Vital Signs: reviewed Differential diagnosis: Obstruction, perforation, mesenteric ischemia, infection,aortic pathology, volvulus, as well as other pathologies. ER treatment provided: See below. Diagnostics interpreted by me: ECG: Sinus rhythm with PACs, 88 bpm, no overt ST elevation or depression, QTc 433, QRS 72. Cardiac Monitoring: An order for continuous cardiac monitoring was placed and demonstrated sinus rhythm with PACs, 88 bpm, no ectopy. Laboratory studies: See below Imaging studies: See below Consultation(s): April Tidwell, general surgery MAKEDA with Dr. Garzon general surgery on-call Dr. Hebert, [facility] hospitalist HPI: Per MDM. ROS: See above HPI for pertinent positives & negatives. A total of 10 systems reviewed and were otherwise negative. VITALS:See Below PHYSICAL EXAMINATION: GENERAL: Awake, alert, chronically ill-appearing, in no distress HENT: Normocephalic, atraumatic. Oropharynx unremarkable. EYES: Normal conjunctiva. Sclera non-icteric. NECK: Supple. No nuchal rigidity. FROM. No JVD. RESPIRATORY: Clear to auscultation. CARDIAC: Regular rate, normal rhythm. Extremities warm and well perfused. Pulses equal. ABDOMEN: Soft, non-distended. Umbilical hernia is notably different from her admission on 02/13 where it appears that there is evisceration of omentum and fat. Otherwise, abdomen is nontender. MUSCULOSKELETAL: Chest examination reveals no tenderness. The back is symmetrical on inspection without obvious abnormality. There is no CVA tenderness to palpation. No joint edema. LOWER EXTREMITIES: Calves are equal size bilaterally and non-tender. No edema. No discoloration. NEURO: No focal sensory or motor deficits noted. Affect is labile and fluctuates from agitated cursing at staff to being cooperative. No asterixis. SKIN: No rash or jaundice noted. ED COURSE: Critical Care: I have personally spent greater than 75 minutes of critical care time in the direct management of this patient. This includes bedside care, interpretation of diagnostic studies, and testing, discussion with consultants, patient, and family members, and other required patient management activities. This 75 minutes is in excess of all separately billable procedures. Nahun Mullins MD Past Med/Surg History Problem List (Updated 02/23/25 @ 01:41 by Nahun Mullins MD) History of noncompliance with medical treatment (Acute) SBP (spontaneous bacterial peritonitis) (Acute) Anemia (Acute) Cirrhosis (Acute) Umbilical hernia (Acute) Fall (Acute) Lumbar contusion (Acute) Chronic hyponatremia (Acute) Hypotension (Acute) Elevated lactic acid level (Acute) Acute upper gastrointestinal bleeding (Acute) Increasing shortness of breath (Acute) Abdominal ascites (Acute) Decompensated cirrhosis (Acute) Impaired glucose tolerance Medical History Tobacco use Asthma HLD (hyperlipidemia) T2DM (type 2 diabetes mellitus) Surgical History No significant past surgical history Family History Other Family history unknown Social History Smoking Status: Current every day smoker Tobacco Type: Cigarettes Cigarettes Per Day: 0.5-1 pk/day; Second Hand Exposure: Yes; Do You Dip or Chew Tobacco: No; Hx Alcohol Use: No Hx Substance Use: No Preferred Language: Mongolian Communication Ability: Effective Booking Prizer Required: No Beliefs That Will Affect Care: None marital status: Single Current Living Situation: Alone Feels Safe at Home: Yes Safety Concerns: Feels Safe At This Time Assistive Devices: Cane and Walker Allergies Allergies Allergy/AdvReac Type Severity Reaction Status Date / Time No Known Allergies Allergy Mild Unverified 10/28/06 13:31 Home Meds Home Medications Medication Instructions Recorded Confirmed aspirin 81 mg tablet,delayed 81 mg PO DAILY 08/04/24 02/22/25 release atorvastatin 20 mg tablet 20 mg PO DAILY 08/04/24 02/22/25 doxepin 25 mg capsule 25 mg PO BID 08/04/24 02/22/25 metformin 500 mg tablet,extended 0 mg PO DAILY 08/04/24 02/22/25 release 24 hr pantoprazole 40 mg tablet,delayed 40 mg PO DAILY 08/04/24 02/22/25 release trazodone 100 mg tablet 100 mg PO HS 08/04/24 02/22/25 cholecalciferol (vitamin D3) 1,250 50,000 unit PO WK 02/22/25 02/22/25 mcg (50,000 unit) capsule furosemide 40 mg tablet 0 mg PO DAILY 02/22/25 02/22/25 ibuprofen 800 mg tablet 800 mg PO DIRECTED PRN Pain 02/22/25 02/22/25 lidocaine 5 % topical patch 0 patch topical DAILY 02/22/25 02/22/25 (Lidoderm) potassium chloride 20 mEq 0 meq PO DAILY 02/22/25 02/22/25 tablet,extended release spironolactone 100 mg tablet 0 mg PO DAILY 02/22/25 02/22/25 ursodiol 300 mg capsule 300 mg PO QID 02/22/25 02/22/25 Results & Data (ED) Vital Signs Vital Signs - 24 hr 02/22/25 11:10 02/22/25 11:15 02/22/25 11:43 Temperature 36.5 C Temperature Source Oral Pulse Rate 96 H 93 H Pulse Rate [Apical] Pulse Rhythm Regular Pulse Rhythm [Apical] Pulse Strength Normal Pulse Strength [Apical] Respiratory Rate 17 Respiratory Effort / Characteristics Non-Labored Spontaneous Respiratory Depth Normal Respiratory Pattern Regular Blood Pressure 120/61 Blood Pressure [Left Arm] Blood Pressure Mean 80 Blood Pressure Mean [Left Arm] Blood Pressure Position Sitting Blood Pressure Position [Left Arm] Pulse Oximetry 98 Oxygen Delivery Method Room Air Room Air Sepsis Recent Fever Within 48 Hours No Sepsis New/Unexplained Change in Mental Status No Sepsis Action Taken by Nursing No Action Required 02/22/25 13:04 02/22/25 15:41 02/22/25 16:00 Temperature 36.4 C L 36.3 C L Temperature Source Oral Oral Pulse Rate 91 H 97 H Pulse Rate [Apical] 92 H Pulse Rhythm Regular Regular Pulse Rhythm [Apical] Pulse Strength Normal Normal Pulse Strength [Apical] Respiratory Rate 18 16 17 Respiratory Effort / Characteristics Respiratory Depth Respiratory Pattern Blood Pressure 103/53 L 119/50 L Blood Pressure [Left Arm] 118/58 L Blood Pressure Mean 69 73 Blood Pressure Mean [Left Arm] 78 Blood Pressure Position Sitting Sitting Blood Pressure Position [Left Arm] Pulse Oximetry 96 99 100 Oxygen Delivery Method Sepsis Recent Fever Within 48 Hours Sepsis New/Unexplained Change in Mental Status Sepsis Action Taken by Nursing 02/22/25 16:00 02/22/25 16:03 02/22/25 16:15 Temperature 36.3 C L 36.4 C Temperature Source Oral Oral Pulse Rate 97 H 99 H 99 H Pulse Rate [Apical] Pulse Rhythm Regular Regular Pulse Rhythm [Apical] Pulse Strength Normal Normal Pulse Strength [Apical] Respiratory Rate 17 18 Respiratory Effort / Characteristics Respiratory Depth Respiratory Pattern Blood Pressure 119/50 L 93/61 L Blood Pressure [Left Arm] Blood Pressure Mean 73 71 Blood Pressure Mean [Left Arm] Blood Pressure Position Sitting Sitting Blood Pressure Position [Left Arm] Pulse Oximetry 100 99 Oxygen Delivery Method Sepsis Recent Fever Within 48 Hours Sepsis New/Unexplained Change in Mental Status Sepsis Action Taken by Nursing 02/22/25 16:15 02/22/25 16:16 02/22/25 16:30 Temperature 36.7 C Temperature Source Oral Pulse Rate 83 Pulse Rate [Apical] 101 H Pulse Rhythm Pulse Rhythm [Apical] Regular Pulse Strength Pulse Strength [Apical] Normal Respiratory Rate 18 19 Respiratory Effort / Characteristics Non-Labored Spontaneous Respiratory Depth Normal Respiratory Pattern Regular Blood Pressure 106/58 L Blood Pressure [Left Arm] 78/67 L 110/67 Blood Pressure Mean 74 Blood Pressure Mean [Left Arm] 70 81 Blood Pressure Position Blood Pressure Position [Left Arm] Sitting Pulse Oximetry 98 100 Oxygen Delivery Method Room Air Sepsis Recent Fever Within 48 Hours Sepsis New/Unexplained Change in Mental Status Sepsis Action Taken by Nursing Laboratory Data Attestation: I reviewed the patient's lab results. 02/22/25 19:44 02/22/25 11:50 Lab Results 02/22/25 02/22/25 02/22/25 Range/Units 11:50 12:27 12:55 WBC 11.75 H (4.8-10.8) K/ul RBC 2.31 L (4.20-5.40) M/uL Hgb 6.6 L* (12.0-16.0) g/dl Hct 20.1 L* (37.0-47.0) % MCV 87.0 (80.0-100.0) fL MCH 28.6 (25.0-34.0) pg MCHC 32.8 (32.0-36.0) g/dL RDW Std Deviation 50.7 H (36.4-46.3) fL RDW Coeff of Mallory 15.9 H (11.5-14.5) % Plt Count 192 (130-400) K/uL MPV 9.1 L (9.4-12.4) fL Immature Gran % (Auto) 0.9 % Neut % (Auto) 79.5 % Lymph % (Auto) 13.9 % [place] % (Auto) 5.3 % Eos % (Auto) 0.2 % Baso % (Auto) 0.2 % Neut # (Auto) 9.35 H (1.40-6.50) K/uL Lymph # (Auto) 1.63 (1.20-3.40) K/uL [place] # (Auto) 0.62 H (0.11-0.59) K/uL Eos # (Auto) 0.02 (0.00-0.50) K/uL Baso # (Auto) 0.02 (0.00-0.20) K/uL Immature Gran # (Auto) 0.11 (0.01-0.20) K/uL Polychromasia 1+ Stomatocytes 1+ PT 10.3 (9.0-12.0) Seconds INR 0.9 (0.9-1.1) Sodium 123 L (136-145) mmol/L Potassium 3.9 (3.5-5.1) mmol/L Chloride 95 L (98-107) mmol/L Carbon Dioxide 21 (21-32) mmol/L Anion Gap 7 (3-11) BUN 26 H (6-23) mg/dl Creatinine 0.96 (0.6-1.2) mg/dl Est Cr Clr Drug Dosing 57.7 ml/min eGFR 67.73 BUN/Creatinine Ratio 27.1 H (10-20) Glucose 210 H (70-99(Fasting)) mg/dl Osmolality 269 L (280-300) mOsm/kg Lactate 2.3 H* (0.4-2.0) mmol/L Calcium 8.2 L (8.6-10.3) mg/dl Total Bilirubin 1.0 (0.2-1.0) mg/dl Direct Bilirubin 0.6 H (0-0.2) mg/dl AST 25 (13-39) U/L ALT 30 (7-52) U/L Alkaline Phosphatase 229 H (34-104) U/L Ammonia 37.0 (18-72) umol/L Total Protein 6.0 (6.0-8.3) gm/dl Albumin 3.0 L (3.4-5.0) gm/dl Globulin 3.0 (2.5-4.0) gm/dl Albumin/Globulin Ratio 1.0 (0.9-2) Lipase 41 (11-82) U/L Procalcitonin 1.01 H (0-0.5) ng/ml TSH 7.766 H (0.300-4.500) uIu/ml Free T4 0.80 (0.61-1.60) ng/dl Blood Type Cancelled Antibody Screen Cancelled Crossmatch See Detail 02/22/25 02/22/25 02/22/25 Range/Units 13:49 15:08 16:37 WBC (4.8-10.8) K/ul RBC (4.20-5.40) M/uL Hgb (12.0-16.0) g/dl Hct (37.0-47.0) % MCV (80.0-100.0) fL MCH (25.0-34.0) pg MCHC (32.0-36.0) g/dL RDW Std Deviation (36.4-46.3) fL RDW Coeff of Mallory (11.5-14.5) % Plt Count (130-400) K/uL MPV (9.4-12.4) fL Immature Gran % (Auto) % Neut % (Auto) % Lymph % (Auto) % [place] % (Auto) % Eos % (Auto) % Baso % (Auto) % Neut # (Auto) (1.40-6.50) K/uL Lymph # (Auto) (1.20-3.40) K/uL [place] # (Auto) (0.11-0.59) K/uL Eos # (Auto) (0.00-0.50) K/uL Baso # (Auto) (0.00-0.20) K/uL Immature Gran # (Auto) (0.01-0.20) K/uL Polychromasia Stomatocytes PT (9.0-12.0) Seconds INR (0.9-1.1) Sodium (136-145) mmol/L Potassium (3.5-5.1) mmol/L Chloride (98-107) mmol/L Carbon Dioxide (21-32) mmol/L Anion Gap (3-11) BUN (6-23) mg/dl Creatinine (0.6-1.2) mg/dl Est Cr Clr Drug Dosing ml/min eGFR BUN/Creatinine Ratio (10-20) Glucose (70-99(Fasting)) mg/dl Osmolality (280-300) mOsm/kg Lactate 2.1 H* 1.3 (0.4-2.0) mmol/L Calcium (8.6-10.3) mg/dl Total Bilirubin (0.2-1.0) mg/dl Direct Bilirubin (0-0.2) mg/dl AST (13-39) U/L ALT (7-52) U/L Alkaline Phosphatase (34-104) U/L Ammonia (18-72) umol/L Total Protein (6.0-8.3) gm/dl Albumin (3.4-5.0) gm/dl Globulin (2.5-4.0) gm/dl Albumin/Globulin Ratio (0.9-2) Lipase (11-82) U/L Procalcitonin (0-0.5) ng/ml TSH (0.300-4.500) uIu/ml Free T4 (0.61-1.60) ng/dl Blood Type O Positive Antibody Screen NEGATIVE Crossmatch See Detail Administered Medications Pantoprazole Sodium 40 mg/ (Dextrose) 100 mls @ 20 mls/hr IV Q5H [facility] Stop: 03/24/25 16:14 Last Admin: 02/22/25 21:58 Dose: 8 mg/hr, 20 mls/hr Documented By: Infusion: 02/22/25 21:58 Dose: Infused Documented By: Admin: 02/22/25 17:23 Dose: 8 mg/hr, 20 mls/hr Documented By: DEVON Piperacillin Sod/Tazobactam Sod (Zosyn) 4.5 gm in 100 mls @ 25 mls/hr IV Q8H [facility]; Protocol Stop: 03/04/25 21:59 Last Admin: 02/22/25 21:58 Dose: 25 mls/hr Documented By: ROMÁN Insulin Aspart (Insulin Aspart Per Unit Charge) 0 units SC ACHS [facility] Stop: 03/24/25 20:59 Last Admin: 02/22/25 20:52 Dose: Not Given Documented By: ROMÁN Miscellaneous (Remove Lidoderm Patch) 1 each N/A DAILY@2100 [facility] Stop: 03/24/25 20:59 Last Admin: 02/22/25 21:05 Dose: 1 each Documented By: ROMÁN Morphine Sulfate (Morphine Sulfate 2 Mg/Ml Carp) 2 mg IV Q4H PRN PRN Reason: Breakthrough Pain Stop: 03/08/25 16:36 Last Admin: 02/22/25 21:03 Dose: 2 mg Documented By: ROMÁN Nicotine (Nicotine 14 Mg/24 Hr Patch) 1 patch TD QAM FLAKO Stop: 03/24/25 16:44 Last Admin: 02/22/25 18:04 Dose: 1 patch Documented By: DEVON Discontinued Medications Sodium Chloride (Nss) 500 mls @ 80 mls/hr IV .Q6H15M [facility] Stop: 02/22/25 17:59 Last Infusion: 02/22/25 19:45 Dose: Infused Documented By: Admin: 02/22/25 13:17 Dose: 80 mls/hr Documented By: DEVON Pantoprazole Sodium (Protonix) 40 mg in 10 mls @ 5 mls/min IV NOW ONE Stop: 02/22/25 12:49 Last Admin: 02/22/25 13:17 Dose: 5 mls/min Documented By: DEVON Octreotide Acetate 100 mcg/ (Syringe) 10 mls @ 3 mls/min IV NOW STA Stop: 02/22/25 15:51 Last Admin: 02/22/25 17:22 Dose: 3 mls/min Documented By: DEVON Pantoprazole Sodium 80 mg/ (Dextrose) 120 mls @ 480 mls/hr IV NOW ONE Stop: 02/22/25 16:02 Last Infusion: 02/22/25 18:18 Dose: Infused Documented By: Admin: 02/22/25 17:00 Dose: 480 mls/hr Documented By: BAYRON Vancomycin HCl 1,500 mg/ (Sodium Chloride) 530 mls @ 200 mls/hr IV NOW STA Stop: 02/22/25 19:01 Last Infusion: 02/22/25 20:31 Dose: Infused Documented By: Admin: 02/22/25 17:47 Dose: 200 mls/hr Documented By: LORY Piperacillin Sod/Tazobactam Sod (Zosyn) 4.5 gm in 100 mls @ 200 mls/hr IV NOW STA; Protocol Stop: 02/22/25 16:53 Last Infusion: 02/22/25 17:47 Dose: Infused Documented By: Admin: 02/22/25 17:00 Dose: 200 mls/hr Documented By: BAYRON Ioversol (Optiray 320 100ml) 94 ml IV ONCE ONE Stop: 02/22/25 13:58 Last Admin: 02/22/25 13:57 Dose: 94 ml Documented By: EL Lidocaine (Lidocaine 5% 1 Patch) 1 patch TD NOW STA Stop: 02/22/25 11:45 Last Admin: 02/22/25 11:49 Dose: 1 patch Documented By: isra Miscellaneous (Stat Iv/Im) 1 each N/A NOW STA Stop: 02/22/25 15:49 Last Admin: 02/22/25 18:18 Dose: Not Given Documented By: DEVON Morphine Sulfate (Morphine Sulfate 2 Mg/Ml Carp) 2 mg IV NOW STA Stop: 02/22/25 11:45 Last Admin: 02/22/25 11:50 Dose: 2 mg Documented By: isra Morphine Sulfate (Morphine Sulfate 2 Mg/Ml Carp) 2 mg IV NOW STA Stop: 02/22/25 16:10 Last Admin: 02/22/25 16:33 Dose: 2 mg Documented By: DEVON Imaging Data Radiologist's Impression: Abdomen/Pelvis CT 02/22/25 12:[address] WITH IV CONTRAST CT DOSE: 1157.4 mGy.cm HISTORY: Acute onset abdominal pain with reported hernia hernia evisceration TECHNIQUE: Multiaxial CT images of the abdomen and pelvis were performed following the IV administration of 94 cc of Optiray, A dose lowering technique was utilized adhering to the principles of ALARA. COMPARISON STUDY: CT abdomen and pelvis 02/13/2025 FINDINGS: Cardiomegaly with coronary artery and mitral annular calcifications. Clear lung bases. No pneumatosis or pneumoperitoneum. Spleen is enlarged measuring 15 cm. Unremarkable pancreas and adrenal glands. Nonspecific gallbladder wall thickening is unchanged. Cirrhotic liver. No hepatic mass identified. Patency of the hepatic and portal veins. Unremarkable kidneys. No hydronephrosis. Urinary bladder and uterus are within normal limits. Atherosclerosis of the aorta and branch vessels. Periaortic and periportal lymph nodes measure up to 9 mm which are nonspecific and stable. Abdominal varicosities are noted. Recanalization of the umbilical vein. Esophageal varicosities. Colonic diverticulosis without definite acute diverticulitis. Areas of wall thickening again noted within numerous loops of large and small bowel. No CT evidence of acute appendicitis. No high-grade bowel obstruction. Small volume of ascites. A subumbilical hernia contains mesenteric fat and a portion of the nonobstructed transverse colon, opening of 4 cm. Additionally, inferior to this there is a fat filled umbilical hernia with opening of 4 cm containing ascitic fluid and mesenteric fat. Unremarkable soft tissues. No acute fracture. Degenerative changes of the spine, pelvis and hips. IMPRESSION: 1. Cirrhosis with stigmata of portal venous hypertension. 2. Areas of large and small bowel thickening are again noted, likely portal enteropathy and portal colopathy. A nonspecific enterocolitis considered less likely. 3. Fat and ascitic filled umbilical hernia. A supra-umbilical hernia partially contains a nonobstructed loop of large bowel along with mesenteric fat. 4. Additional findings as above. ACT 112: Negative or not required by law. The above report was generated using voice recognition software. It may contain grammatical, syntax or spelling errors. Electronically signed by: Jono Mendez M.D. 02/22/2025 2:41 PM Discharge Plan Visit Data Chief Complaint: Infection ED Provider: Nahun Mullins Discharge Problem: Umbilical hernia, Chronic hyponatremia, Cirrhosis, Anemia, SBP (spontaneous bacterial peritonitis), History of noncompliance with medical treatment Patient Disposition: Admitted As Inpatient Condition: Critical Discharge Instructions Interventions: ED Discharge Assessment Last Done: 02/22/25 18:20 Discharge Problem: Umbilical hernia Qualifiers: Obstruction and gangrene presence: without obstruction or gangrene Qualified Code(s): K42.9 - Umbilical hernia without obstruction or gangrene Cirrhosis Qualifiers: Hepatic cirrhosis type: unspecified hepatic cirrhosis Ascites presence: with ascites Qualified Code(s): K74.60 - Unspecified cirrhosis of liver Anemia Qualifiers: Anemia type: unspecified type Qualified Code(s): D64.9 - Anemia, unspecified
[2025-02-22] MEDS: LIDOCAINE 5% 1 PATCH TD STA (11:49)
[2025-02-22] MEDS: MoRPHine SULFATE 2 MG/ML CARP IV STA ×2 (11:50→16:33)
--- NOTE | 2025-02-22 12:06 | XRay Report ---
XR chest 1V portable HISTORY: 59 years-old Female weakness COMPARISON: Chest CT 02/13/2025 TECHNIQUE: AP view of the chest FINDINGS: Cardiomediastinal and hilar silhouettes are within normal limits. Pulmonary emphysema without pneumot horax, pleural effusion, airspace consolidation or pulmonary edema. Bones appear grossly intact. IMPRESSION: No acute process. ACT 112: Negative or not required by law. The above report was generated using voice recognition software. It may contain grammatical, syntax o r spelling errors. Electronically signed by: Jono Mendez M.D. 02/22/2025 12:05 PM
[2025-02-22 12:27] LABS: Hematocrit (blood only) 20.1 % (37.0-47.0); Hemoglobin 6.6 g/dl (12.0-16.0); Mean Corpuscular Hemoglobin 28.6 pg (25.0-34.0); Mean Corpuscular Volume 87.0 fL (80.0-100.0); Platelet Count 192 K/uL (130-400); RDW Standard Deviation 50.7 fL (36.4-46.3); Red Blood Count 2.31 M/uL (4.20-5.40); White Blood Count 11.75 K/ul (4.8-10.8)
[2025-02-22 12:39] LABS: Alanine Aminotransferase 30.0 U/L (7-52); Albumin Globulin Ratio 1.0 (0.9-2); Alkaline Phosphatase 229.0 U/L (34-104); Anion Gap 7.0 (3-11); Bilirubin,Total 1.0 mg/dl (0.2-1.0); Blood Urea Nitrogen 26.0 mg/dl (6-23); Calcium 8.2 mg/dl (8.6-10.3); Carbon Dioxide 21.0 mmol/L (21-32); Chloride 95.0 mmol/L (98-107); Creatinine Clr Calc Pharmacy 57.7 ml/min; Globulin 3.0 gm/dl (2.5-4.0); Glucose 210.0 mg/dl (70-99(Fasting)); INR 0.9 (0.9-1.1); Potassium 3.9 mmol/L (3.5-5.1); Prothrombin Time 10.3 Seconds (9.0-12.0); Sodium 123.0 mmol/L (136-145); Total Protein 6.0 gm/dl (6.0-8.3)
[2025-02-22] MEDS ORDERED: SODIUM CHLORIDE 0.9% 100 ML IV PRN ×2 (12:46→20:08)
[2025-02-22 12:51] LABS: Immature Granulocytes # (auto) 0.11 K/uL (0.01-0.20); Immature Granulocytes % (auto) 0.9 %; Polychromasia 1+; Stomatocytes 1+; Thyroid Stimulating Hormone 7.766 uIu/ml (0.300-4.500)
[2025-02-22 13:10] LABS: Lipase 41.0 U/L (11-82)
[2025-02-22] MEDS: SODIUM CHLORIDE 0.9% 500 ML IV SCH (13:17)
[2025-02-22] MEDS: PANTOprazole 40 MG/10 ML SYR IV ONE (13:17)
--- NOTE | 2025-02-22 13:46 | Surgery Consultation ---
Date of Consultation February 22, 2025 Assessment & Plan (1) Umbilical hernia: This is a 59yF with a PMH of [place] cirrhosis, DM, HLD who presents to the [facility] ED on 02/22/25 for concern for evisceration of omentum from an umbilical hernia after sustaining a fall last week. Patient has undergone routine intermittent p aracentesis this year for ascites after being worked up for & diagnosed with presumed [place] cirrhosis. She reports having a hole in her umbilical skin over the past couple of months were ascitic fluid has been draining from this of which she manages with pads or depends. She was last drained via paracentesis today for about 3L and was promptly sent over to the ER due to appearance of the contents out of her umbilical hernia. She states that she fell last Saturday and she reported the hole enlarged and noticed fat contents protruding from her abdomen starting the saturday a couple days after the fall. Of note she was evaluated in the ER on both 02/13 for concern for GI bleed and on 02/16 after her fall and there does not appear to have been any issues with umbilical area noted outside of her chronic small hole there. She does have a history of non compliance and leaving AMA, of which she did on 02/14 and ultimately never ended up getting scoped for evaluation of GI bleed. The patient denies any nausea/vomiting, fevers/chills, CP/shortness of breath. She reports eating and drinking without issues. She has been having BM's, last was this AM. Today in the ER patient's blood work shows a WBC11, Hbg 6.6, Na 123, lactate 2.3. Vitals are stable. On exam patient is resting in bed in no acute distress. Abdominal exam shows + umbilical herniation of abdominal contents which appears omental fat in nature. There are some areas of the fat that appear are darkened on the left side. There is some mild surrounding erythema of the area and + serous/bloody drainage on her depends. We will recommend a CT scan for further evaluation. Appears in the past she has a couple otto umbilical hernias noted. Would recommend moistened dressing on herniated fat. From our standpoint would see if she can be transferred to a tertiary center for repair given her history of cirrhosis and concern for multiple hernia's. If not accepted she will need to be admitted by medicine medical evaluation, correction of electrolytes, following up of fluid studies, and consideration of repair tomorrow. As above. Patient seen. Extremely noncompliant. Verbally abusive to myself as well as my physician medical assistant instructor. Incessantly cussing at us. Rational at times but irrational with logical thinking. Refusing to be transferred to a tertiary center which she clearly needs as she has an abdominal evisceration in the face of cirrhosis and portal hypertension. She is refusing because she feels as though she cannot get a ride home despite me telling her we have resources to assist with that. She is currently being admitted to medicine. She is stable. Her abdomen has been open since last Saturday. She has no peritonitis. I do recommend antibiotics and wet-to-dry dressings. I am going to recommend a psych iatric consult. We may even have to have our ethics committee weigh in as I do not believe she should be kept and operated on at our facility. She will need blood transfusion electrolytes corrected. History of Present Illness History of Present Illness This is a 59yF with a PMH of [place] cirrhosis, DM, HLD who presents to the [facility] ED on 02/22/25 for concern for evisceration of omentum from umbilical hernia after sustaining a fall last week. Patient has undergone routine intermittent paracentesis this year for ascites after being worked up for & diagnosed with presumed [place] cirrhosis. She reports having a hole in her umbilical skin over the past couple of months were ascitic fluid has been draining from this of which she manages with pads or depends. She was last drained today for about 3L and sent over from the IR suite to the ER for concern of worsening hernia with evisceration. Last Saturday the patient fell and she reported the hole enlarged and noticed fat contents protruding from her abdomen starting the saturday after her fall. She was evaluated in the ER on both 02/13 for concern for GI bleed and on 02/16 after her fall and there does not appear to have been any issues with umbilical area outside of her chronic small hole there. She does have a history of non compliance and leaving AMA, of which she did on 02/14 and ultimately never ended up getting scoped for evaluation of GI bleed. The patient denies any nausea/vomiting, fevers/chills, CP/shortness of breath. She reports eating and drinking without issues. She has been having BM's, last was this AM. Allergies Allergy/AdvReac Type Severity Reaction Status Date / Time No Known Allergies Allergy Mild Unverified 10/28/06 13:31 Home Medications Medication Instructions Recorded Confirmed Type aspirin 81 mg tablet,delayed 81 mg PO DAILY 08/04/24 02/22/25 History release atorvastatin 20 mg tablet 20 mg PO DAILY 08/04/24 02/22/25 History doxepin 25 mg capsule 25 mg PO BID 08/04/24 02/22/25 History metformin 500 mg tablet,extended 0 mg PO DAILY 08/04/24 02/22/25 History release 24 hr pantoprazole 40 mg tablet,delayed 40 mg PO DAILY 08/04/24 02/22/25 History release trazodone 100 mg tablet 100 mg PO HS 08/04/24 02/22/25 History cholecalciferol (vitamin D3) 1,250 50,000 unit PO WK 02/22/25 02/22/25 History mcg (50,000 unit) capsule furosemide 40 mg tablet 0 mg PO DAILY 02/22/25 02/22/25 History ibuprofen 800 mg tablet 800 mg PO DIRECTED PRN Pain 02/22/25 02/22/25 History lidocaine 5 % topical patch 0 patch topical DAILY 02/22/25 02/22/25 History (Lidoderm) potassium chloride 20 mEq 0 meq PO DAILY 02/22/25 02/22/25 History tablet,extended release spironolactone 100 mg tablet 0 mg PO DAILY 02/22/25 02/22/25 History ursodiol 300 mg capsule 300 mg PO QID 02/22/25 02/22/25 History Patient History Medical History Tobacco use Asthma HLD (hyperlipidemia) T2DM (type 2 diabetes mellitus) Surgical History No significant past surgical history Family History Other Family history unknown Social History Smoking Status: Current every day smoker Tobacco Type: Cigarettes Second Hand Exposure: Yes; Do You Dip or Chew Tobacco: No; Hx Alcohol Use: No Hx Substance Use: No Preferred Language: Bulgarian Communication Ability: Effective Spooler Required: No Beliefs That Will Affect Care: None marital status: Single Current Living Situation: Alone Feels Safe at Home: Yes Assistive Devices: Cane and Walker Review of Systems Constitutional: no fever and no chills Respiratory: no dyspnea Cardiovascular: no chest pain Gastrointestinal: no nausea, no vomiting and no change in bowel habits denies any specific pain Physical Exam Physical Exam: awake, appears in no distress Respiratory: normal respiratory effort Gastrointestinal (Abdomen): Percussion/Palpation: + abdomen tender (some discomfort in umbilical region) and abdomen soft + herniation of abdominal contents appea rs omental fat in nature, there is some areas that appear that are darkening on the left side. there is some mild surrounding erythema of the area and + drainage on her depends Results & Data Vital Signs (Past 12 Hours) Vital Signs Temp Pulse Resp BP Pulse Ox O2 Del Method 02/22/25 11:15 93 H 02/22/25 11:10 97.7 F 96 H 17 120/61 98 Room Air PG Care Time/CCT Total # of Minutes Spent Total Time Spent with Patient: Total time spent is greater than 50% in coordination of care (as documented) at patient's floor/unit and/or counseling patient: Coding Level of Care Code 58205 OP VST NEW MOD 45 MIN Diagnoses Umbilical hernia K42.9
[2025-02-22] MEDS: OPTIRAY 320 100ml IV ONE (13:57)
--- NOTE | 2025-02-22 14:43 | CT Scan Report ---
ABDOMEN AND PELVIS CT WITH IV CONTRAST CT DOSE: 1157.4 mGy.cm HISTORY: Acute onset abdominal pain with reported hernia hernia evisceration TECHNIQUE: Multiaxial CT images of the abdomen and pelvis were performed following the IV administrat ion of 94 cc of Optiray, A dose lowering technique was utilized adhering to the principles of ALARA. COMPARISON STUDY: CT abdomen and pelvis 02/13/2025 FINDINGS: Cardiomegaly with coronary artery and mitral annular calcifications. Clear lung bases. No p neumatosis or pneumoperitoneum. Spleen is enlarged measuring 15 cm. Unremarkable pancreas and adrenal glands. Nonspecific gallbladder wall thickening is unchanged. Cirrhotic liver. No hepatic mass ident ified. Patency of the hepatic and portal veins. Unremarkable kidneys. No hydronephrosis. Urinary bladder and uterus are within normal limits. Atheros clerosis of the aorta and branch vessels. Periaortic and periportal lymph nodes measure up to 9 mm wh ich are nonspecific and stable. Abdominal varicosities are noted. Recanalization of the umbilical vei n. Esophageal varicosities. Colonic diverticulosis without definite acute diverticulitis. Areas of wa ll thickening again noted within numerous loops of large and small bowel. No CT evidence of acute brandee endicitis. No high-grade bowel obstruction. Small volume of ascites. A subumbilical hernia contains mesenteric f at and a portion of the nonobstructed transverse colon, opening of 4 cm. Additionally, inferior to th is there is a fat filled umbilical hernia with opening of 4 cm containing ascitic fluid and mesenteri c fat. Unremarkable soft tissues. No acute fracture. Degenerative changes of the spine, pelvis and hi ps. IMPRESSION: 1. Cirrhosis with stigmata of portal venous hypertension. 2. Areas of large and small bowel thickening are again noted, likely portal enteropathy and portal co lopathy. A nonspecific enterocolitis considered less likely. 3. Fat and ascitic filled umbilical hernia. A supra-umbilical hernia partially contains a nonobstruct ed loop of large bowel along with mesenteric fat. 4. Additional findings as above. ACT 112: Negative or not required by law. The above report was generated using voice recognition software. It may contain grammatical, syntax o r spelling errors. Electronically signed by: Jono Mendez M.D. 02/22/2025 2:41 PM
[2025-02-22] MEDS ORDERED: PANTOPRAZOLE BOLUS/DRIP IV STA (15:48)
--- NOTE | 2025-02-22 15:49 | Electrocardiogram Report ---
Test Reason : Blood Pressure : */* mmHG Vent. Rate : 88 BPM Atrial Rate : 88 BPM P-R Int : 158 ms QRS Dur : 72 ms QT Int : 358 ms P-R-T Axes : 38 51 66 degrees QTcB Int : 433 ms Sinus rhythm with Premature atrial complexes Otherwise normal ECG When compared with ECG of 13-Feb-2025 21:28, Premature atrial complexes are now Present Nonspecific T wave abnormality no longer evident in Inferior leads T wave inversion now evident in Anterior leads Confirmed by Tom Garcia ([id number]) on 02/22/2025 3:49:29 PM Referred By: REFERRED SELF Confirmed By: Tom Garcia
[2025-02-22] MEDS ORDERED: cefTRIAXone SODIUM 2,000 MG/50 ML BAG IV STA (16:12)
[2025-02-22] MEDS ORDERED: VANCOMYCIN CONSULT ACTIVE PRN (16:20)
[2025-02-22] MEDS ORDERED: VANCOMYCIN HCL 2,000 MG in SODIUM CHLORIDE 0.9% 500 ML IV STA (16:22)
--- NOTE | 2025-02-22 16:29 | History & Physical Report ---
Date of Service February 22, 2025 Assessment & Plan (1) Umbilical hernia: (2) Chronic hyponatremia: (3) Hypotension: (4) Acute upper gastrointestinal bleeding: (5) Decompensated cirrhosis: (6) Asthma: (7) HLD (hyperlipidemia): (8) T2DM (type 2 diabetes mellitus): Plan 59 yo female with pmhx of [place] cirrhosis (c/b varices, portal gastropathy), GERD, DM Type 2 (c/b polyneuropathy), hx of migraines, hx of tobacco use who presents for outpouching of abdomen in outpatient paracentesis lab 2/2 external omental herniation now c/b SBP. #Sepsis #SBP #Open Omental Herniation -recommended transfer for urgent surgical intervention for omental hernia but patient declines, had capacity during my evaluation (see above) to make this decision -patient understands without surgery her prognosis is likely on scale of weeks to months -SBP noted on outpatient parcentesis labs (1700 WBC, 74% neutrophils), likely 2/2 herniation -sepsis due to leukocytosis, tachycardia -discussed with patient, patient is hospice appropriate with prognosis of weeks to months without surgical intervention, she understands this and accepts those risks Plan: -start empiric antibiotics with vancomycin/zosyn given external hernia -blood cultures x2, fluid resuscitation gentle given cirrhosis -surgery consult, appreciate recs, unable to do surgery here due to high risk and need for higher level of care -regular diet per patient wishes -will address goals of care further tomorrow -psych consult for ongoing capacity evaluation, appreciate recs #Acute Blood Loss Anemia #GERD #Portal Gastropathy Bleed/Variceal Bleed -likely acute on chronic anemia given cirrhosis, however several points below baseline -patient poor historian but denies melena or hematemesis -has known varices and portal gastropathy -elevated BUN suggestive of active bleed Plan: -start PPI drip -start octreotide for potential variceal bleed -GI consult, appreciate recs for scope (order placed) -Hgb>7 #Acute on Chronic Hyponatremia -baseline around 127m currently at 123 -low serum osmoles, received fluids in ED -likely hypervolemia 2/2 cirrhosis but could also have SIADH component from doxepin Plan: -check urine studies -hold off on more fluids for now -may need nephrology consult pending labs and trend #Decompensated [place] Cirrhosis -as evidenced by ascites, possible variceal bleed -small volume ascites by imaging Plan: -hold lasix/aldactone for now given sepsis -continue ursodiol -hold doxepin for now #DM Type 2 -SSI ordered -continue statin, hold aspirin #Tobacco Use -nicotine patches I spent a total of 90 minutes in direct patient care, including [id number] time with the patient and/or family, reviewing medical records, ordering and reviewing diagnostic tests, and coordinating care with other healthcare providers. This time includes: history taking, physical examination, medical decision making, counseling, ECG interpretation, imaging interpretation, lab interpretation, orders, and education, excluding time spent in the performance of separately billed services. History of Present Illness Chief Complaint: -from paracentesis outpatient for distended abdomen Primary Care Provider: Alexandro Rose MD 59 yo female with pmhx of [place] cirrhosis (c/b varices, portal gastropathy), GERD, DM Type 2 (c/b polyneuropathy), hx of migraines, hx of tobacco use who presents for outpouching of abdomen in outpatient paracentesis lab. Last admission was in 07/2024 for decompensated cirrhosis. In the ED, noted to have a abdominal outpouching, surgery consulted, recommended surgery to fix omentum outside of abdominal cavity, patient declined, given fluids and morphine in ED, ED provider felt patient likely has capacity to make this decision but wanted further opinion and workup, admitted to medicine for further workup. Patient seen and examined at bedside. Patient states that she is in pain and hungry. When asked about what her understanding of her condition is, she states "i have organs outside of my body and I will if I do not get it fixed." She states that they want to transfer her to another hospital, but she states that transportation to and from the other hospital is hard and scary for her and from past experiences she does not want to do it. She understands that if she does not get it fixed she will . See formal capacity evaluation below. Otherwise, she states that her back really hurts and she is really hungry. This provider discussed hospice care with her since she does not want a procedure done, she states she is "done" and would consider this but does not want to let anyone into her house. 4 elements of capacity: 1. Understanding: she is ablve to verbalize above "i have organs outside of my body and I will if I do not get it fixed." She states that they want to transfer her to another hospital, but she states that transportation to and from the other hospital is hard and scary for her and from past experiences she does not want to do it. 2. Expressing a choice: she states she does not want to be transferred to another hospital even if she dies by not transferring. 3. Appreciation: she is able to verbalize she will without a surgical procedure. 4. Reasoning: while her reasoning for not going to another hospital may seem trivial like transportation, she has had bad experiences in the past with needin g private transport at discharge and feels that the transportation and logistics is a very high burden for her. In short, while her decisions may not be what others would choose for themselves, she does have medical capacity to make decisions at this time. Capacity is time and date dependent and may change throughout hospoitalization. Allergies Allergy/AdvReac Type Severity Reaction Status Date / Time No Known Allergies Allergy Mild Unverified 10/28/06 13:31 Home Medications Medication Instructions Recorded Confirmed Type aspirin 81 mg tablet,delayed 81 mg PO DAILY 08/04/24 02/22/25 History release atorvastatin 20 mg tablet 20 mg PO DAILY 08/04/24 02/22/25 History doxepin 25 mg capsule 25 mg PO BID 08/04/24 02/22/25 History metformin 500 mg tablet,extended 0 mg PO DAILY 08/04/24 02/22/25 History release 24 hr pantoprazole 40 mg tablet,delayed 40 mg PO DAILY 08/04/24 02/22/25 History release trazodone 100 mg tablet 100 mg PO HS 08/04/24 02/22/25 History cholecalciferol (vitamin D3) 1,250 50,000 unit PO WK 02/22/25 02/22/25 History mcg (50,000 unit) capsule furosemide 40 mg tablet 0 mg PO DAILY 02/22/25 02/22/25 History ibuprofen 800 mg tablet 800 mg PO DIRECTED PRN Pain 02/22/25 02/22/25 History lidocaine 5 % topical patch 0 patch topical DAILY 02/22/25 02/22/25 History (Lidoderm) potassium chloride 20 mEq 0 meq PO DAILY 02/22/25 02/22/25 History tablet,extended release spironolactone 100 mg tablet 0 mg PO DAILY 02/22/25 02/22/25 History ursodiol 300 mg capsule 300 mg PO QID 02/22/25 02/22/25 History Past Med/Surg History Problem List (Updated 02/22/25 @ 14:03 by April Epps PA-C) Umbilical hernia Fall (Acute) Lumbar contusion (Acute) Chronic hyponatremia (Acute) Hypotension (Acute) Elevated lactic acid level (Acute) Acute upper gastrointestinal bleeding (Acute) Increasing shortness of breath (Acute) Abdominal ascites (Acute) Decompensated cirrhosis (Acute) Impaired glucose tolerance Medical History Tobacco use Asthma HLD (hyperlipidemia) T2DM (type 2 diabetes mellitus) Surgical History No significant past surgical history Family History Other Family history unknown Social History Smoking Status: Current every day smoker Tobacco Type: Cigarettes Second Hand Exposure: Yes; Do You Dip or Chew Tobacco: No; Hx Alcohol Use: No Hx Substance Use: No Preferred Language: Kiswahili Communication Ability: Effective High Energy Forming Equipment Operator Required: No Beliefs That Will Affect Care: None marital status: Single Current Living Situation: Alone Feels Safe at Home: Yes Assistive Devices: Cane and Walker Review of Systems Review of Systems: -negative unless listed above Physical Exam Physical Exam: Gen: A&O 3 severe pain HEENT: NCAT, EOMI, not icteric. External ears normal. No rhinorrhea. Moist mucous membranes. Neck: Supple, full range of motion, no observable masses, No meningeal sign. Lungs: No Respiratory distress. CV: RRR, no edema. Abdomen: external organ herniation noted, open, covered in gauze, no clearly purulent drainage MSK: 1+ pitting edema in legs bilaterally, per patient her baseline Skin: No rashes, petechiae, lesions. Normal color per patient. Neuro: Normal Gait, Grossly intact. Psych: agitated but alert and orriented x3, able to make decisions Results & Data Results & Data Vital Signs (Past 12 Hours) Vital Signs Temp Pulse Pulse Resp BP BP Pulse Ox 02/22/25 16:15 36.4 C 99 H 18 93/61 L 99 02/22/25 16:03 99 H 02/22/25 16:00 36.3 C L 97 H 17 119/50 L 100 02/22/25 16:00 36.3 C L 97 H 17 119/50 L 100 02/22/25 15:41 36.4 C L 91 H 16 103/53 L 99 02/22/25 13:04 92 H 18 118/58 L 96 02/22/25 11:43 02/22/25 11:15 93 H 02/22/25 11:10 36.5 C 96 H 17 120/61 98 O2 Del Method 02/22/25 16:15 02/22/25 16:03 02/22/25 16:00 02/22/25 16:00 02/22/25 15:41 02/22/25 13:04 02/22/25 11:43 Room Air 02/22/25 11:15 02/22/25 11:10 Room Air Laboratory Results -personally reviewed, outpatient paracentesis labs today consistent with SBP (1700 WBC with 75% neutrophils) likely 2/2 omental exteneral hernia, elevated leukocytosis consistent with SBP, Hgb drop to 6.6 concerning for variceal bleed, Na of 123 is acute on chronic hyponatremia for patient, creatinine slightly eelvated above baseline, lactic acid of 2.1 marginally elevated in cirrhotic patient, elevated alk phos consistent with cirrhosis, elevated procal consistent with SBP, elevated TSH with preserved T4 consistent with subclinical hypothyroidism Medications Administered Sodium Chloride (Nss) 500 mls @ 80 mls/hr IV .Q6H15M FLAKO Stop: 02/22/25 17:59 Last Admin: 02/22/25 13:17 Dose: 80 mls/hr Documented By: LCD Code Status & VTE Plan Code Status -DNRDNI, discussed at length with patient (3) Hypotension Hypotension type: unspecified hypotension type Qualified Code(s): I95.9 - Hypotension, unspecified
[2025-02-22] MEDS ORDERED: MoRPHine SULFATE 2 MG/ML CARP IV PRN (16:37)
[2025-02-22] MEDS: PIPERACILLIN/TAZOBACTAM 4.5 GM/100 ML BAG IV STA (17:00)
[2025-02-22] MEDS ORDERED: GLUCOSE 10 TAB/TUBE PO PRN (17:09)
[2025-02-22] MEDS ORDERED: GLUCAGON FOR INJ 1 MG VIAL SQ PRN (17:09)
[2025-02-22] MEDS ORDERED: DEXTROSE 50% 50 ML SYRINGE IV PRN (17:09)
[2025-02-22] MEDS ORDERED: GLUCOSE 40% GEL 15 GM TUBE PO PRN (17:09)
[2025-02-22] MEDS ORDERED: CARBOHYDRATES FOR HYPOGLYCEMIA PO PRN (17:09)
[2025-02-22] MEDS: OCTREOTIDE ACETATE 100 MCG in SYRINGE 9 ML IV STA (17:22)
[2025-02-22] MEDS: PANTOprazole 40 MG in DEXTROSE 5% MINI-B 100 ML IV SCH (17:23)
[2025-02-22] MEDS: VANCOMYCIN HCL 1,500 MG in SODIUM CHLORIDE 0.9% 500 ML IV STA (17:47)
[2025-02-22] MEDS: NICOTINE 14 MG/24 HR PATCH TD SCH (18:04)
[2025-02-22] MEDS: STAT IV/IM STA (18:18)
--- NOTE | 2025-02-22 19:14 | Pharmacy Report ---
Pharmacy PK ABX Note - Date of Service February 22, 2025 - Assessment and Plan Assessment 59 year old F receiving empiric vancomycin and Zosyn for treatment of sepsis likely secondary to spontaneous bacterial peritonitis w/ open omental herniation s/p fall. Surgery recommending transfer to tertiary center for surgical repair of hernia, but patient is currently refusing. Pertinent PMH includes decompensated [place] cirrhosis and T2DM. Pertinent microbiologic data includes: blood cultures x 2 pending, peritoneal fluid culture pending. Leukocytosis present. Renal function appears to be at/near baseline. Day # 1 of antimicrobial therapy. Plan Vancomycin * Loading dose: 1500 mg IV x 1 * Maintenance dose: 1250 mg IV every 18 hours * Regimen is predicted to achieve target AUC/DIDI of 400-600 mg/L.hr * Random level ordered for: 02/24/25 Pharmacy will continue to follow and will adjust dose/frequency as necessary. Thank you. Pharmacy has transitioned to AUC monitoring for vancomycin. AUC/DIDI is the preferred PK/PD target and is associated with decreased risk of nephrotoxicity compared to traditional trough targets.
[2025-02-22] MEDS: INSULIN ASPART PER UNIT CHARGE SC SCH (20:52)
[2025-02-22] MEDS: MoRPHine SULFATE 2 MG/ML CARP IV PRN (21:03)
[2025-02-22] MEDS: REMOVE LIDODERM PATCH SCH (21:05)
--- NOTE | 2025-02-22 21:40 | Communication Note ---
Discussed patients dropping Hgb with patient. She understands that her blood counts are dropping, and that without fixing her abdomen she will . She is able to verbalize this. Is ammenable to further blood for now, but if she declines overnight just wants to be made comfortable. Continues to state she does not transferred, even if she dies. She is agreeable to the plan of giving blood and reevaluating, and appreciative of the update. Date of Service: February 22, 2025
[2025-02-22] MEDS: PIPERACILLIN/TAZOBACTAM 4.5 GM/100 ML BAG IV SCH (21:58)
[2025-02-23 04:13] LABS: Hematocrit (blood only) 26.6 % (37.0-47.0); Hemoglobin 8.9 g/dl (12.0-16.0); Immature Granulocytes # (auto) 0.08 K/uL (0.01-0.20); Immature Granulocytes % (auto) 0.8 %; Mean Corpuscular Hemoglobin 28.4 pg (25.0-34.0); Mean Corpuscular Volume 85.0 fL (80.0-100.0); Platelet Count 178 K/uL (130-400); RDW Standard Deviation 47.2 fL (36.4-46.3); Red Blood Count 3.13 M/uL (4.20-5.40); White Blood Count 10.62 K/ul (4.8-10.8)
[2025-02-23 04:34] LABS: Alanine Aminotransferase 27.0 U/L (7-52); Albumin Globulin Ratio 0.8 (0.9-2); Alkaline Phosphatase 226.0 U/L (34-104); Anion Gap 4.0 (3-11); Bilirubin,Total 1.7 mg/dl (0.2-1.0); Blood Urea Nitrogen 19.0 mg/dl (6-23); Calcium 8.0 mg/dl (8.6-10.3); Carbon Dioxide 23.0 mmol/L (21-32); Chloride 97.0 mmol/L (98-107); Creatinine Clr Calc Pharmacy 56.8 ml/min; Globulin 3.1 gm/dl (2.5-4.0); Glucose 107.0 mg/dl (70-99(Fasting)); Magnesium 1.9 mg/dl (1.7-2.4); Potassium 5.1 mmol/L (3.5-5.1); Sodium 124.0 mmol/L (136-145); Total Protein 5.7 gm/dl (6.0-8.3)
[2025-02-23] MEDS: VANCOMYCIN HCL 1,250 MG in SODIUM CHLORIDE 0.9% 250 ML IV SCH (06:16)
--- NOTE | 2025-02-23 08:34 | Electrocardiogram Report ---
Test Reason : Blood Pressure : */* mmHG Vent. Rate : 83 BPM Atrial Rate : 83 BPM P-R Int : 150 ms QRS Dur : 70 ms QT Int : 356 ms P-R-T Axes : -16 71 78 degrees QTcB Int : 418 ms Sinus rhythm with Premature atrial complexes Otherwise normal ECG When compared with ECG of 22-Feb-2025 12:32, No significant change was found Confirmed by Tom Garcia ([id number]) on 02/23/2025 8:34:13 AM Referred By: REFERRED SELF Confirmed By: Tom Garcia
[2025-02-23] MEDS: REMOVE NICODERM PATCH SCH (09:20)
--- NOTE | 2025-02-23 09:32 | Surgery Progress Note ---
Date of Service February 23, 2025 Assessment & Plan (1) SBP (spontaneous bacterial peritonitis): Plan: Had a long discussion with patient. Clearly she needs urgent surgical intervention. She is currently refusing surgery and states that she does not care what the consequences are. She does appear to be alert and oriented and able to make the decision. We discussed that without surgical intervention she has a high likelihood of . She fully understands and does not consent to surgery. We will sign off. Call as needed (2) History of noncompliance with medical treatment: (3) Incarcerated hernia of abdominal cavity: (4) Cirrhosis: (5) Umbilical hernia: (6) Abdominal ascites: Admission and Anticipated Discharge Date Admission Date: February 22, 2025 Subjective pt seen. "I'm feeling much better today". Physical Exam Physical Exam: alert. nad abd: soft. still with fat eviceration. unchanged from yesterday Results & Data Vital Signs (Past 12 Hours) Vital Signs Temp Pulse Pulse Resp BP BP Pulse Ox 02/23/25 07:56 36.6 C 88 21 111/62 97 02/23/25 03:47 36.7 C 89 18 124/58 L 98 02/23/25 02:22 36.7 C 83 18 98/55 L 97 02/23/25 02:20 36.7 C 83 18 98/55 L 97 02/23/25 02:00 36.7 C 84 18 92/44 L 96 02/23/25 01:30 36.7 C 83 18 90/44 L 97 02/23/25 01:00 36.4 C L 78 18 94/49 L 99 02/23/25 00:44 36.4 C L 84 18 90/39 L 99 02/23/25 00:39 36.7 C 77 20 89/42 L 99 02/23/25 00:24 36.6 C 78 18 88/30 L 98 02/23/25 00:09 36.6 C 75 18 99/46 L 98 02/22/25 23:54 36.4 C L 78 18 86/43 L 98 02/22/25 23:40 36.7 C 83 18 110/53 L 98 02/22/25 23:40 36.7 C 83 18 110/53 L 98 02/22/25 22:47 80 02/22/25 22:42 36.6 C 79 18 95/54 L 02/22/25 22:42 36.4 C L 74 18 91/42 L 98 02/22/25 22:12 36.4 C L 77 18 96/48 L 98 02/22/25 21:57 36.4 C L 89 18 93/45 L 98 02/22/25 21:42 36.5 C 77 18 90/52 L 98 O2 Del Method 02/23/25 07:56 Room Air 02/23/25 03:47 Room Air 02/23/25 02:22 02/23/25 02:20 02/23/25 02:00 02/23/25 01:30 02/23/25 01:00 02/23/25 00:44 02/23/25 00:39 02/23/25 00:24 02/23/25 00:09 02/22/25 23:54 02/22/25 23:40 02/22/25 23:40 02/22/25 22:47 02/22/25 22:42 02/22/25 22:42 02/22/25 22:12 02/22/25 21:57 02/22/25 21:42 PG Care Time/CCT Total # of Minutes Spent Total Time Spent with Patient: Total time spent is greater than 50% in coordination of care (as documented) at patient's floor/unit and/or counseling patient: Coding Level of Care Code 36789 SUB INP/OBS CARE 2MIN Diagnoses SBP (spontaneous bacterial peritonitis) K65.2 History of noncompliance with medical treatment Z91.199 Incarcerated hernia of abdominal cavity K45.0 Cirrhosis K74.60; R18.8 Ascites presence: with ascites Hepatic cirrhosis type: unspecified hepatic cirrhosis Umbilical hernia K42.9 Obstruction and gangrene presence: without obstruction or gangrene Abdominal ascites R18.8 Ascites type: other type (4) Cirrhosis Ascites presence: with ascites Hepatic cirrhosis type: unspecified hepatic cirrhosis Qualified Code(s): K74.60 - Unspecified cirrhosis of liver; R18.8 - Other ascites (5) Umbilical hernia Obstruction and gangrene presence: without obstruction or gangrene Qualified Code(s): K42.9 - Umbilical hernia without obstruction or gangrene (6) Abdominal ascites Ascites type: other type Qualified Code(s): R18.8 - Other ascites
[2025-02-23 09:56] LABS: Appearance Urine Clear (Clear); Bacteria Urine Automated None Seen (None Seen); Glucose Urine UA Negative (Negative); RBC Urine Automated 0-2 /hpf (0-2); WBC Urine Automated 0-5 /hpf (0-5)
--- NOTE | 2025-02-23 11:15 | Gastrointestinal Consultation ---
Date of Consultation February 23, 2025 Assessment & Plan (1) Incarcerated hernia of abdominal cavity: (2) Cirrhosis: (3) SBP (spontaneous bacterial peritonitis): Plan Patient currently admitted with open omental herniation, SBP, and sepsis. GI consulted for possible variceal bleeding. There does not seem to be any active GI bleeding at this time. - she declines any GI intervention. she does not wish to pursue any endoscopic evaluations. - continue with vancomycin/zosyn for SBP. - continue with protonix drip. - she should follow up with her regular scientific informatics leader at [facility] upon discharge for ongoing management of cirrhosis and HCC screening. -Further recommendations to come with Supervising GI provider on medical rounds. Please see co-signature comments. Supervising Physician Co-Signing Physician Notes I personally saw and examined the patient. I have reviewed the chart and agree with the documentation provided by the CYLINDER INSPECTOR AND TESTER including discussion about the assessment, treatment and plan. Briefly, 59 year old female with a past medical history of [place] cirrhosis, GERD, DM Type 2, migraines, tobacco use who presented to the ED on 02/22/25 for outpouching of abdomen seen in the outpatient paracentesis lab. In the ED, she was noted to have an abdominal outpouching, to which surgery was consulted and recommended surgery to fix omentum outside of abdominal cavity. Patient declined and refused surgery despite the severity of her situation and potential for . . GI consulted for possible variceal bleeding. There does not seem to be any active GI bleeding at this time. - she declines any GI intervention. she does not wish to pursue any endoscopic evaluations. Recent EGD has showed grade 1-2 varices with portal hypertensive gastropathy. She had brown stool yesterday that was hard. I do not think she is actively GI bleeding but she does have anemia and some GI losses from her portal gastropathy. Unfortunately there is very limited options at this point if she decides not to go through with surgery. Medical supportive care I guess for now History of Present Illness Reason for Consultation: possible variceal bleed Requesting Physician: Andrés Hebert MD Attending Physician: Kathy Arredondo MD History of Present Illness Patient is a 59 year old female with a past medical history of [place] cirrhosis, GERD, DM Type 2, migraines, tobacco use who presented to the ED on 02/22/25 for outpouching of abdomen seen in the outpatient paracentesis lab. In the ED, she was noted to have an abdominal outpouching, to which surgery was consulted and recommended surgery to fix omentum outside of abdominal cavity. Patient declined and refused surgery despite the severity of her situation and potential for . she is currently admitted for open omental herniation, SBP, Sepsis. This morning, she continues to decline surgery. she has some nausea and emesis. no hematemesis. She admits to leaking of abdominal fluid from site of her hernia. she denies any abdominal pain. she tends to lean towards constipation and uses miralax as needed for this. Rare brbpr when she wipes. no melena. 02/23/25 hgb 8.8, wbc 10.6, hct 26.6, plts 178, Na 124, K 5.1, BUN 19, Cr 0.96. T bili 1.7, Alk phos 226, rest of LFTs unremarkable. Allergies Allergy/AdvReac Type Severity Reaction Status Date / Time No Known Allergies Allergy Mild Unverified 10/28/06 13:31 Home Medications Medication Instructions Recorded Confirmed Type aspirin 81 mg tablet,delayed 81 mg PO DAILY 08/04/24 02/22/25 History release atorvastatin 20 mg tablet 20 mg PO DAILY 08/04/24 02/22/25 History doxepin 25 mg capsule 25 mg PO BID 08/04/24 02/22/25 History metformin 500 mg tablet,extended 0 mg PO DAILY 08/04/24 02/22/25 History release 24 hr pantoprazole 40 mg tablet,delayed 40 mg PO DAILY 08/04/24 02/22/25 History release trazodone 100 mg tablet 100 mg PO HS 08/04/24 02/22/25 History cholecalciferol (vitamin D3) 1,250 50,000 unit PO WK 02/22/25 02/22/25 History mcg (50,000 unit) capsule furosemide 40 mg tablet 0 mg PO DAILY 02/22/25 02/22/25 History ibuprofen 800 mg tablet 800 mg PO DIRECTED PRN Pain 02/22/25 02/22/25 History lidocaine 5 % topical patch 0 patch topical DAILY 02/22/25 02/22/25 History (Lidoderm) potassium chloride 20 mEq 0 meq PO DAILY 02/22/25 02/22/25 History tablet,extended release spironolactone 100 mg tablet 0 mg PO DAILY 02/22/25 02/22/25 History ursodiol 300 mg capsule 300 mg PO QID 02/22/25 02/22/25 History Patient History Medical History Tobacco use Asthma HLD (hyperlipidemia) T2DM (type 2 diabetes mellitus) Surgical History No significant past surgical history Family History Other Family history unknown Social History Smoking Status: Current every day smoker Tobacco Type: Cigarettes Cigarettes Per Day: 0.5-1 pk/day; Second Hand Exposure: Yes; Do You Dip or Chew Tobacco: No; Hx Alcohol Use: No Hx Substance Use: No Preferred Language: Korean Communication Ability: Effective Billet Examiner Required: No Beliefs That Will Affect Care: None marital status: Single Current Living Situation: Alone Feels Safe at Home: Yes Safety Concerns: Feels Safe At This Time Assistive Devices: Cane Review of Systems Review of Systems: All systems reviewed & are unremarkable except as noted in HPI & below Physical Exam Physical Exam: Patient declining physical exam. Results & Data Vital Signs (Past 12 Hours) Vital Signs Temp Pulse Pulse Resp BP BP Pulse Ox 02/23/25 08:30 84 02/23/25 07:56 97.9 F 88 21 111/62 97 02/23/25 03:47 98.1 F 89 18 124/58 L 98 02/23/25 02:22 98.1 F 83 18 98/55 L 97 02/23/25 02:20 98.1 F 83 18 98/55 L 97 02/23/25 02:00 98.1 F 84 18 92/44 L 96 02/23/25 01:30 98.1 F 83 18 90/44 L 97 02/23/25 01:00 97.5 F L 78 18 94/49 L 99 02/23/25 00:44 97.5 F L 84 18 90/39 L 99 02/23/25 00:39 98.1 F 77 20 89/42 L 99 02/23/25 00:24 97.9 F 78 18 88/30 L 98 02/23/25 00:09 97.9 F 75 18 99/46 L 98 02/22/25 23:54 97.5 F L 78 18 86/43 L 98 02/22/25 23:40 98.1 F 83 18 110/53 L 98 02/22/25 23:40 98.1 F 83 18 110/53 L 98 O2 Del Method 02/23/25 08:30 02/23/25 07:56 Room Air 02/23/25 03:47 Room Air 02/23/25 02:22 02/23/25 02:20 02/23/25 02:00 02/23/25 01:30 02/23/25 01:00 02/23/25 00:44 02/23/25 00:39 02/23/25 00:24 02/23/25 00:09 02/22/25 23:54 02/22/25 23:40 02/22/25 23:40 Coding Level of Care Code 11117 INT INP/OBS CARE MIN Diagnoses Incarcerated hernia of abdominal cavity K45.0 Cirrhosis K74.60; R18.8 Ascites presence: with ascites Hepatic cirrhosis type: unspecified hepatic cirrhosis SBP (spontaneous bacterial peritonitis) K65.2 (2) Cirrhosis Ascites presence: with ascites Hepatic cirrhosis type: unspecified hepatic cirrhosis Qualified Code(s): K74.60 - Unspecified cirrhosis of liver; R18.8 - Other ascites
--- NOTE | 2025-02-23 13:17 | Communication Note ---
Palliative Care Follow Up Patient seen and examined at bedside. Patient continues to reiterate that she does not want any kind of invasive procedures, including endoscopy or general surgery. She has been very consistent with these wishes and patient continues to have medical capacity to make decisions. She states she is more comfortable today with the current level of pain control. Gen: A&O 3 severe pain HEENT: NCAT, EOMI, not icteric. External ears normal. No rhinorrhea. Moist mucous membranes. Neck: Supple, full range of motion, no observable masses, No meningeal sign. Lungs: No Respiratory distress. CV: RRR, no edema. Abdomen: external organ herniation noted, open, covered in gauze, no clearly purulent drainage MSK: 1+ pitting edema in legs bilaterally, per patient her baseline Skin: No rashes, petechiae, lesions. Normal color per patient. Neuro: Normal Gait, Grossly intact. Psych: agitated but alert and orriented x3, able to make decisions Assessment/Plan: #Sepsis #SBP #Open Omental Herniation #Acute Blood Loss Anemia #Portal Gastropathy Bleed/Variceal Bleed #Advanced Care Planning -recommended transfer for urgent surgical intervention for omental hernia but patient declines, had capacity during my evaluation (see above) to make this decision -patient understands without surgery her prognosis is likely on scale of weeks to months -discussed at length with patient again today, continues to exhibit capacity to make medical decisions during my evaluation -of note, capacity is time and topic specific -filled out POLST with patient today, uploaded to chart Plan: -patient should use PO dilaudid before using breakthrough morphine -discussed with nursing staff -patient is hospice appropriate and if she is agreeable should strongly be considered as her disposition -she is not agreeable yet at this time -patient is DNRDNI, wants to be made comfortable if she declines, does not want procedures, intubation, chest compressions, any artifical life support -start miralax daily for bowel regiment given opioid use -prn zofran IV added for nausea/vomiting Date of Service: February 23, 2025
[2025-02-23] MEDS ORDERED: ONDANSETRON INJ 2 MG/ML 2 ML VIAL IV PRN (13:27)
[2025-02-23] MEDS ORDERED: POLYETHYLENE (MIRALAX) 17 GM PACK PO PRN (13:28)
--- NOTE | 2025-02-23 14:12 | Psychiatric Consultation ---
Date of Consultation February 23, 2025 Impression / Recommendations Impression Patient presents a consistent decision to refuse treatment. She was able to verbalize and rationalize the risks and benefits of refusing surgery. Her decision was consistent with the values she presented. She does not appear to be in a major mood or psychotic episode and is oriented to the situation. In my opinion at this time she has decision making capacity to refuse her surgery for abdominal hernia. Patient was counseled on options to complete the surgery if she changes her mind at a future date and voices understanding of the imminent nature of the surgery. Overall, I spent a total of 80 minutes with this case including review of chart records, nursing report, review of lab work, direct evaluation of the patient at bedside, counseling the patient, discussion of the patient with the hospitalist provider, discussion with the psychiatric liaison during clinical rounds, and documentation in the electronic health record. (1) Encounter for assessment of decision-making capacity: (2) Incarcerated hernia of abdominal cavity: (3) History of noncompliance with medical treatment: (4) SBP (spontaneous bacterial peritonitis): Plan In my opinion at this time she has decision making capacity to refuse her surgery for abdominal hernia. Recommend to provide patient options and plan to receive the surgery if she changes her mind at a future date. Psych History Identifying Data 59 yo female h/o [place] cirrhosis, GERD, Type 2 DM, Migraines, tobacco use who presents with open omental herniation. Psychiatry consulted for decision making capacity for refusal of surgical intervention. Chief Complaint Decision making capacity History of Present Illness Patient is alert and oriented to herself, hospital, year, month, situation. She denies past psychiatric diagnosis. Reports being on doxepin for "depression". Reports sleeping and eating well. Has 2 large dogs at home and enjoys spending time with them. She denies SI and HI. She denies AVH. Past overdose as suicide attempt in 1983 after her grandmother and did not have hospitalization afterwards. I ask what her decision is about the treatment and she says she does not want it currently. I explained to her the proposed treatment and the risks and benefits. She voiced understanding and was able to verbalize the risks and benefits back to me citing that she is "going to within weeks if I do not get it". Reports the benefit of getting the treatment is that she "may not " however that it is high risk. Says that she has animals who can take care of her dogs. She denies having any fears about medical transport. She again confirms she does not want treatment. She presents understanding that if she passes away she would not be there to take care of her animals. Reports that she may change her mind in the future and we encouraged her to understand this is a imminent risk of and she voices understanding. Allergies Allergy/AdvReac Type Severity Reaction Status Date / Time No Known Allergies Allergy Mild Unverified 10/28/06 13:31 Home Medications Medication Instructions Recorded Confirmed Type aspirin 81 mg tablet,delayed 81 mg PO DAILY 08/04/24 02/22/25 History release atorvastatin 20 mg tablet 20 mg PO DAILY 08/04/24 02/22/25 History doxepin 25 mg capsule 25 mg PO BID 08/04/24 02/22/25 History metformin 500 mg tablet,extended 0 mg PO DAILY 08/04/24 02/22/25 History release 24 hr pantoprazole 40 mg tablet,delayed 40 mg PO DAILY 08/04/24 02/22/25 History release trazodone 100 mg tablet 100 mg PO HS 08/04/24 02/22/25 History cholecalciferol (vitamin D3) 1,250 50,000 unit PO WK 02/22/25 02/22/25 History mcg (50,000 unit) capsule furosemide 40 mg tablet 0 mg PO DAILY 02/22/25 02/22/25 History ibuprofen 800 mg tablet 800 mg PO DIRECTED PRN Pain 02/22/25 02/22/25 History lidocaine 5 % topical patch 0 patch topical DAILY 02/22/25 02/22/25 History (Lidoderm) potassium chloride 20 mEq 0 meq PO DAILY 02/22/25 02/22/25 History tablet,extended release spironolactone 100 mg tablet 0 mg PO DAILY 02/22/25 02/22/25 History ursodiol 300 mg capsule 300 mg PO QID 02/22/25 02/22/25 History Patient History Medical History Tobacco use Asthma HLD (hyperlipidemia) T2DM (type 2 diabetes mellitus) Surgical History No significant past surgical history Family History Other Family history unknown Social History Smoking Status: Current every day smoker Tobacco Type: Cigarettes Cigarettes Per Day: 0.5-1 pk/day; Second Hand Exposure: Yes; Do You Dip or Chew Tobacco: No; Hx Alcohol Use: No Hx Substance Use: No Preferred Language: Armenian Communication Ability: Effective Java Support Engineer Required: No Beliefs That Will Affect Care: None marital status: Single Current Living Situation: Alone Feels Safe at Home: Yes Safety Concerns: Feels Safe At This Time Assistive Devices: Cane Physical Exam Mental Examination: Appearance: Unkempt Eye Contact: Maintains Eye Contact Motor Behavior: Restless Speech: Normal Mood: Euthymic Affect: Angry (upset people are asking about her decision) and Happy Thought Process: Intact and Linear Thought Content: Racing Hallucinations: None Insight: Fair (to limited) Judgement: Fair (to limited) Vital Signs (Past 24 Hours): Last Vital Signs Temp 36.7 C 02/23/25 11:14 Pulse 79 02/23/25 11:14 Resp 21 02/23/25 11:14 BP 99/47 L 02/23/25 11:14 Pulse Ox 96 02/23/25 11:14 O2 Del Method Room Air 02/23/25 11:14 Results & Data (PSY) Medications Administered Pantoprazole Sodium 40 mg/ (Dextrose) 100 mls @ 20 mls/hr IV Q5H [facility]KO Stop: 03/24/25 16:14 Last Admin: 02/23/25 12:30 Dose: 8 mg/hr, 20 mls/hr Documented By: Infusion: 02/23/25 12:28 Dose: Infused Documented By: Admin: 02/23/25 07:28 Dose: 8 mg/hr, 20 mls/hr Documented By: Infusion: 02/23/25 07:26 Dose: Infused Documented By: Admin: 02/23/25 02:26 Dose: 8 mg/hr, 20 mls/hr Documented By: Infusion: 02/23/25 02:26 Dose: Infused Documented By: Admin: 02/22/25 21:58 Dose: 8 mg/hr, 20 mls/hr Documented By: Infusion: 02/22/25 21:58 Dose: Infused Documented By: Admin: 02/22/25 17:23 Dose: 8 mg/hr, 20 mls/hr Documented By: DEVON Piperacillin Sod/Tazobactam Sod (Zosyn) 4.5 gm in 100 mls @ 25 mls/hr IV Q8H [facility]; Protocol Stop: 03/04/25 21:59 Last Admin: 02/23/25 13:10 Dose: 25 mls/hr Documented By: Infusion: 02/23/25 10:26 Dose: Infused Documented By: Admin: 02/23/25 06:16 Dose: 25 mls/hr Documented By: Infusion: 02/23/25 02:02 Dose: Infused Documented By: Admin: 02/22/25 21:58 Dose: 25 mls/hr Documented By: ROMÁN Vancomycin HCl 1,250 mg/ (Sodium Chloride) 275 mls @ 200 mls/hr IV Q18H [facility] Stop: 03/05/25 05:59 Last Infusion: 02/23/25 08:46 Dose: Infused Documented By: Admin: 02/23/25 06:16 Dose: 200 mls/hr Documented By: ROMÁN Insulin Aspart (Insulin Aspart Per Unit Charge) 0 units SC ACHS [facility] Stop: 03/24/25 20:59 Last Admin: 02/23/25 11:29 Dose: Not Given Documented By: Admin: 02/23/25 09:03 Dose: Not Given Documented By: Admin: 02/22/25 20:52 Dose: Not Given Documented By: ROMÁN Miscellaneous (Remove Lidoderm Patch) 1 each N/A DAILY@2100 [facility] Stop: 03/24/25 20:59 Last Admin: 02/22/25 21:05 Dose: 1 each Documented By: ROMÁN Faye (Remove Nicoderm Patch) 1 each N/A DAILY@0859 [facility] Stop: 03/25/25 08:58 Last Admin: 02/23/25 09:20 Dose: 1 each Documented By: JCARLOS Morphine Sulfate (Morphine Sulfate 2 Mg/Ml Carp) 2 mg IV Q4H PRN PRN Reason: Breakthrough Pain Stop: 03/08/25 16:36 Last Admin: 02/23/25 06:16 Dose: 2 mg Documented By: Admin: 02/23/25 01:27 Dose: 2 mg Documented By: Admin: 02/22/25 21:03 Dose: 2 mg Documented By: ROMÁN Nicotine (Nicotine 14 Mg/24 Hr Patch) [facility] Stop: 03/24/25 16:44 Last Admin: 02/23/25 09:20 Dose: 1 patch Documented By: Admin: 02/22/25 18:04 Dose: 1 patch Documented By: DEVON [place] [address] IN/OBS CONSULT LVL 5,80M Patient Type New History Detailed Exam Detailed Medical Decision Making High Complexity Diagnoses Encounter for assessment of decision-making capacity Z00.8 Incarcerated hernia of abdominal cavity K45.0 History of noncompliance with medical treatment Z91.199 SBP (spontaneous bacterial peritonitis) K65.2
[2025-02-23] MEDS: POLYETHYLENE (MIRALAX) 17 GM PACK PO SCH (14:35)
--- NOTE | 2025-02-23 15:46 | Hospitalist Progress Note ---
Date of Service February 23, 2025 Assessment & Plan (1) Umbilical hernia: (2) Chronic hyponatremia: (3) Hypotension: (4) Acute upper gastrointestinal bleeding: (5) Decompensated cirrhosis: (6) Asthma: (7) HLD (hyperlipidemia): (8) T2DM (type 2 diabetes mellitus): Plan 59 yo female with pmhx of [place] cirrhosis (c/b varices, portal gastropathy), GERD, DM Type 2 (c/b polyneuropathy), hx of migraines, hx of tobacco use who presents for outpouching of abdomen in outpatient paracentesis lab 2/2 external omental herniation now c/b SBP. #Sepsis #SBP #Open Omental Herniation -recommended transfer for urgent surgical intervention for omental hernia but patient declines, had capacity during my evaluation (see above) to make this decision -patient understands without surgery her prognosis is likely on scale of weeks to months -SBP noted on outpatient parcentesis labs (1700 WBC, 74% neutrophils), likely 2/2 herniation -discussed with patient, patient is hospice appropriate with prognosis of weeks to months without surgical intervention, she understands this and accepts those risks Plan: -start empiric antibiotics with vancomycin/zosyn given external hernia -blood cultures x2, fluid resuscitation gentle given cirrhosis -surgery consult, appreciate recs, unable to do surgery here due to high risk and need for higher level of care -regular diet per patient wishes -Appreciate GI input and recommendation Appreciate psychiatric input and recommendationshe has decision-making capacity and refusing surgery for abdominal hernia Appreciate palliative care input and recommendation She has been feeling little better-will continue current intravenous antibiotic -She wants to go home today if feels better. Remains DNR/DNI and POLST form has been filled out #Acute Blood Loss Anemia #GERD #Portal Gastropathy Bleed/Variceal Bleed -likely acute on chronic anemia given cirrhosis, however several points below baseline -patient poor historian but denies melena or hematemesis -has known varices and portal gastropathy Plan: -start PPI drip -start octreotide for potential variceal bleed -GI consult, appreciate recs for scope (order placed)-refusing any endoscopic evaluation -Received 1 unit of blood transfusion and the hemoglobin went up to 8.4 - Will monitor CBC #Acute on Chronic Hyponatremia -baseline around 127m currently at 123 -low serum osmoles, received fluids in ED -likely hypervolemia 2/2 cirrhosis but could also have SIADH component from doxepin Plan: -check urine studies -hold off on more fluids for now -may need nephrology consult pending labs and trend -Will monitor PRP #Decompensated [place] Cirrhosis -as evidenced by ascites, possible variceal bleed -small volume ascites by imaging Plan: -hold lasix/aldactone for now given sepsis -continue ursodiol -hold doxepin for now #DM Type 2 -SSI ordered -continue statin, hold aspirin #Tobacco Use -nicotine patches Prognosis remains very poor Admission and Anticipated Discharge Date Admission Date: February 22, 2025 Subjective 02/23/2025 The patient was seen and examined in telemetry unit She has been feeling better but complains to have some pain in the abdomen without nausea or vomiting She has been tolerating diet and denies any significant symptoms She does not want to be transferred to facility where further management can be done and she plans to go home tomorrow Review of Systems Review of Systems: All systems reviewed and are unremarkable except as noted below Physical Exam Physical Exam: Lying in bed without any acute distress Constitutional: well developed, well nourished, + ill appearing and + obese Eyes: PERRL, conjunctivae normal, anicteric sclerae ENMT: external ear and nose normal, oropharynx normal Neck: trachea midline, no thyromegaly Respiratory: no respiratory distress Auscultation: lungs clear to auscultation bilaterally Cardiovascular: Rate/Rhythm: regular rate and regular rhythm; not tachycardic Heart Sounds: normal S1 and normal S2; no murmur Gastrointestinal (Abdomen): Inspection/Auscultation: + abdomen distended ([place] incarcerated hernia of the abdominal cavity without obstruction-bandag) and normal bowel sounds Percussion/Palpation: + abdomen tender and abdomen soft Musculoskeletal: No acute arthritis involving any of the joint Neurologic: normal touch/pain/proprioception and moves all extremities; no focal motor deficits Psychiatric: A+Ox3, euthymic affect Lymphatic: no cervical or axillary lymphadenopathy Results & Data Results & Data Vital Signs (Past 12 Hours) Vital Signs Temp Pulse Pulse Resp BP Pulse Ox O2 Del Method 02/23/25 11:14 36.7 C 79 21 99/47 L 96 Room Air 02/23/25 08:30 84 02/23/25 07:56 36.6 C 88 21 111/62 97 Room Air 02/23/25 03:47 36.7 C 89 18 124/58 L 98 Room Air Laboratory Results Short CBC 02/22/25 02/23/25 02/23/25 Range/Units 19:44 03:37 03:37 WBC 10.62 (4.8-10.8) K/ul Hgb 6.3 L* 8.9 L 8.8 L (12.0-16.0) g/dl Hct 26.6 L (37.0-47.0) % Plt Count 178 (130-400) K/uL 02/23/25 Range/Units 11:18 WBC (4.8-10.8) K/ul Hgb 8.4 L (12.0-16.0) g/dl Hct (37.0-47.0) % Plt Count (130-400) K/uL BMP 02/23/25 03:37 Sodium 124 L Potassium 5.1 D Chloride 97 L Carbon Dioxide 23 BUN 19 Creatinine 0.96 Glucose 107 H Calcium 8.0 L Liver Function 02/23/25 Range/Units 03:37 Total Bilirubin 1.7 H D (0.2-1.0) mg/dl AST 22 (13-39) U/L ALT 27 (7-52) U/L Alkaline Phosphatase 226 H (34-104) U/L Albumin 2.6 L (3.4-5.0) gm/dl Urine 02/23/25 Range/Units Unknown Urine Color Yellow Urine Appearance Clear (Clear) Urine pH 6.0 (4.5-7.5) Ur Specific [place] 1.023 (1.000-1.030) Urine Protein Negative (Negative) Urine Glucose (UA) Negative (Negative) Medications Administered Current Inpatient Medications Dextrose (Dextrose 50% 50 Ml Syringe) 25 - 50 ml IV UD PRN; Protocol PRN Reason: Hypoglycemia Protocol Stop: 03/24/25 17:08 Glucagon (Glucagon For Inj 1 Mg Vial) 1 mg SQ UD PRN; Protocol PRN Reason: Hypoglycemia Protocol Stop: 03/24/25 17:08 Glucose (Glucose 40% Gel 15 Gm Tube) 15 - 30 gm PO UD PRN; Protocol PRN Reason: Hypoglycemia Protocol Stop: 03/24/25 17:08 Glucose (Glucose 10 Tab/Tube) 4 - 8 tab PO UD PRN; Protocol PRN Reason: Hypoglycemia Protocol Stop: 03/24/25 17:08 Hydromorphone HCl (Hydromorphone Hcl 2 Mg Tab) 2 mg PO Q4 PRN PRN Reason: Severe Pain (Scale 7, 8, 9,10) Stop: 03/08/25 17:19 Pantoprazole Sodium 40 mg/ (Dextrose) 100 mls @ 20 mls/hr IV Q5H [facility] Stop: 03/24/25 16:14 Last Admin: 02/23/25 12:30 Dose: 8 mg/hr, 20 mls/hr Piperacillin Sod/Tazobactam Sod (Zosyn) 4.5 gm in 100 mls @ 25 mls/hr IV Q8H [facility]; Protocol Stop: 03/04/25 21:59 Last Admin: 02/23/25 13:10 Dose: 25 mls/hr Vancomycin HCl 1,250 mg/ (Sodium Chloride) 275 mls @ 200 mls/hr IV Q18H [facility] Stop: 03/05/25 05:59 Last Infusion: 02/23/25 08:46 Dose: Infused Insulin Aspart (Insulin Aspart Per Unit Charge) 0 units SC ACHS [facility] Stop: 03/24/25 20:59 Last Admin: 02/23/25 11:29 Dose: Not Given Miscellaneous (Remove Lidoderm Patch) 1 each N/A DAILY@2100 [facility] Stop: 03/24/25 20:59 Last Admin: 02/22/25 21:05 Dose: 1 each Miscellaneous (Remove Nicoderm Patch) 1 each N/A DAILY@0859 [facility] Stop: 03/25/25 08:58 Last Admin: 02/23/25 09:20 Dose: 1 each Miscellaneous (Carbohydrates For Hypoglycemia ) 15 - 30 gm PO UD PRN PRN Reason: Hypoglycemia Protocol Stop: 03/24/25 17:08 Miscellaneous Information (Vancomycin Consult Active) 1 each N/A UD PRN PRN Reason: Consult Stop: 03/24/25 16:19 Morphine Sulfate (Morphine Sulfate 2 Mg/Ml Carp) 2 mg IV Q4H PRN PRN Reason: Breakthrough Pain Stop: 03/08/25 16:36 Last Admin: 02/23/25 06:16 Dose: 2 mg Nicotine (Nicotine 14 Mg/24 Hr Patch) 1 patch TD QAM [facility] Stop: 03/24/25 16:44 Last Admin: 02/23/25 09:20 Dose: 1 patch Ondansetron HCl (Ondansetron Inj 2 Mg/Ml 2 Ml Vial) 4 mg IV Q6H PRN PRN Reason: Nausea And Vomiting Stop: 03/25/25 13:26 Polyethylene Glycol (Polyethylene (Miralax) 17 Gm Pack) 17 gm PO DAILY [facility] Stop: 03/25/25 13:29 Last Admin: 02/23/25 14:35 Dose: 17 gm Polyethylene Glycol (Polyethylene (Miralax) 17 Gm Pack) 17 gm PO DAILY PRN PRN Reason: Constipation Stop: 03/25/25 13:27 (1) Umbilical hernia Obstruction and gangrene presence: without obstruction or gangrene Qualified Code(s): K42.9 - Umbilical hernia without obstruction or gangrene (3) Hypotension Hypotension type: unspecified hypotension type Qualified Code(s): I95.9 - Hypotension, unspecified
[2025-02-23] MEDS ORDERED: cefTRIAXone SODIUM 2,000 MG/50 ML BAG IV SCH (16:00)
[2025-02-23 20:05] VITALS: RESP 18
[2025-02-24 05:11] LABS: Hematocrit (blood only) 27.8 % (37.0-47.0); Hemoglobin 9.0 g/dl (12.0-16.0); Immature Granulocytes # (auto) 0.13 K/uL (0.01-0.20); Immature Granulocytes % (auto) 1.4 %; Mean Corpuscular Hemoglobin 27.4 pg (25.0-34.0); Mean Corpuscular Volume 84.5 fL (80.0-100.0); Platelet Count 172 K/uL (130-400); RDW Standard Deviation 47.0 fL (36.4-46.3); Red Blood Count 3.29 M/uL (4.20-5.40); White Blood Count 9.56 K/ul (4.8-10.8)
[2025-02-24 05:37] LABS: Alanine Aminotransferase 26.0 U/L (7-52); Albumin Globulin Ratio 0.9 (0.9-2); Alkaline Phosphatase 228.0 U/L (34-104); Anion Gap 6.0 (3-11); Bilirubin,Total 1.1 mg/dl (0.2-1.0); Blood Urea Nitrogen 18.0 mg/dl (6-23); Calcium 8.2 mg/dl (8.6-10.3); Carbon Dioxide 21.0 mmol/L (21-32); Chloride 97.0 mmol/L (98-107); Creatinine Clr Calc Pharmacy 59.3 ml/min; Globulin 3.2 gm/dl (2.5-4.0); Glucose 103.0 mg/dl (70-99(Fasting)); Magnesium 2.0 mg/dl (1.7-2.4); Potassium 3.9 mmol/L (3.5-5.1); Sodium 124.0 mmol/L (136-145); Total Protein 6.0 gm/dl (6.0-8.3)
[2025-02-24 07:12] VITALS: BP 109/59; PULSE 65; TEMP 97.7; O2SAT 97
--- NOTE | 2025-02-24 10:14 | Discharge Summary ---
Discharge Summary Date of Service February 24, 2025 Principal Dx & Hospital Course #1 = Principal Diagnosis (1) Umbilical hernia: (2) Chronic hyponatremia: (3) Hypotension: (4) Acute upper gastrointestinal bleeding: (5) Decompensated cirrhosis: (6) Asthma: (7) HLD (hyperlipidemia): (8) T2DM (type 2 diabetes mellitus): Plan 59 yo female with pmhx of [place] cirrhosis (c/b varices, portal gastropathy), GERD, DM Type 2 (c/b polyneuropathy), hx of migraines, hx of tobacco use who presents for outpouching of abdomen in outpatient paracentesis lab 2/2 external omental herniation now c/b SBP. #Sepsis #SBP #Open Omental Herniation -recommended transfer for urgent surgical intervention for omental hernia but patient declines, had capacity during my evaluation (see above) to make this decision -patient understands without surgery her prognosis is likely on scale of weeks to months -SBP noted on outpatient parcentesis labs (1700 WBC, 74% neutrophils), likely 2/2 herniation -discussed with patient, patient is hospice appropriate with prognosis of weeks to months without surgical intervention, she understands this and accepts those risks Plan: -start empiric antibiotics with vancomycin/zosyn given external hernia -blood cultures x2, fluid resuscitation gentle given cirrhosis -surgery consult, appreciate recs, unable to do surgery here due to high risk and need for higher level of care -regular diet per patient wishes -Appreciate GI input and recommendation Appreciate psychiatric input and recommendationshe has decision-making capacity and refusing surgery for abdominal hernia Appreciate palliative care input and recommendation She has been feeling little better-will continue current intravenous antibiotic -She wants to go home today if feels better. Remains DNR/DNI and POLST form has been filled out 02/24 patient Adamantly requesting to be discharged Discharged on a course of Augmentin twice daily for completion of treatment for SBP Reevaluate omental hernia as an outpatient s/p paracentesis, 3 L during this admission #Acute Blood Loss Anemia #GERD #Portal Gastropathy Bleed/Variceal Bleed -likely acute on chronic anemia given cirrhosis, however several points below baseline -patient poor historian but denies melena or hematemesis -has known varices and portal gastropathy Plan: -start PPI drip -start octreotide for potential variceal bleed -GI consult, appreciate recs for scope (order placed)-refusing any endoscopic evaluation -Received 1 unit of blood transfusion and the hemoglobin went up to 8.4 02/24 hemoglobin 9.0 upon discharge Monitor CBC as an outpatient Aspirin and atorvastatin held in light of possible GI bleed, decompensated liver cirrhosis Protonix increased to twice daily x 7 days then daily #Acute on Chronic Hyponatremia -baseline around 127m currently at 123 -low serum osmoles, received fluids in ED -likely hypervolemia 2/2 cirrhosis but could also have SIADH component from doxepin Plan: -check urine studies -hold off on more fluids for now 02/24 Sodium remains at 124 Patient declining to wait for nephrology service recommendations continue usual Lasix plus Aldactone Repeat BMP on follow-up with PCP February 26, 2025 #Decompensated [place] Cirrhosis -as evidenced by ascites, possible variceal bleed -small volume ascites by imaging Plan: -continue usual diuretics -continue ursodiol # Abnormal CT abdomen and pelvis findings Cardiomegaly with coronary artery and mitral annular calcifications.Spleen is enlarged measuring 15 cm. Atherosclerosis of the aorta and branch vessels. Periaortic and periportal lymph nodes measure up to 9 mm which are nonspecific and stable. Areas of wall thickening again noted within numerous loops of large and small bowel. -Further work up, management, and ff up as outpatient #DM Type 2 -SSI ordered -continue statin, hold aspirin #Tobacco Use -nicotine patches Prognosis remains very poor Disposition patient very adamant to be discharged home as soon as possible- Agitated, shouting; " i want you to discharge me now!" explained plan of care, including Importance of outpatient PCP follow-up encouraged to return to the ER immediately if with worsening of symptoms including abdominal pain, distention, fevers/chills, weakness, etc. patient verbalized understanding and agreement Notes For Next Care Provider Medication Changes From Visit New meds: Augmentin BID Probiotics Aspirin and atorvastatin held in light of possible GI bleed, decompensated liver cirrhosis Protonix increased to twice daily x 7 days then daily Admission HPI Per Admitting Provider 59 yo female with pmhx of [place] cirrhosis (c/b varices, portal gastropathy), GERD, DM Type 2 (c/b polyneuropathy), hx of migraines, hx of tobacco use who presents for outpouching of abdomen in outpatient paracentesis lab. Last admission was in 07/2024 for decompensated cirrhosis. In the ED, noted to have a abdominal outpouching, surgery consulted, recommended surgery to fix omentum outside of abdominal cavity, patient declined, given f luids and morphine in ED, ED provider felt patient likely has capacity to make this decision but wanted further opinion and workup, admitted to medicine for further workup. Patient seen and examined at bedside. Patient states that she is in pain and hungry. When asked about what her understanding of her condition is, she states "i have organs outside of my body and I will if I do not get it fixed." She states that they want to transfer her to another hospital, but she states that transportation to and from the other hospital is hard and scary for her and from past experiences she does not want to do it. She understands that if she does not get it fixed she will . See formal capacity evaluation below. Otherwise, she states that her back really hurts and she is really hungry. This provider discussed hospice care with her since she does not want a procedure done, she states she is "done" and would consider this but does not want to let anyone into her house. 4 elements of capacity: 1. Understanding: she is ablve to verbalize above "i have organs outside of my body and I will if I do not get it fixed." She states that they want to transfer her to another hospital, but she states that transportation to and from the other hospital is hard and scary for her and from past experiences she does not want to do it. 2. Expressing a choice: she states she does not want to be transferred to another hospital even if she dies by not transferring. 3. Appreciation: she is able to verbalize she will without a surgical procedure. 4. Reasoning: while her reasoning for not going to another hospital may seem trivial like transportation, she has had bad experiences in the past with needing private transport at discharge and feels that the transportation and logistics is a very high burden for her. In short, while her decisions may not be what others would choose for themselves, she does have medical capacity to make decisions at this time. Capacity is time and date dependent and may change throughout hospoitalization. Admission Exam Per Admitting Provider Gen: A&O 3 severe pain HEENT: NCAT, EOMI, not icteric. External ears normal. No rhinorrhea. Moist mucous membranes. Neck: Supple, full range of motion, no observable masses, No meningeal sign. Lungs: No Respiratory distress. CV: RRR, no edema. Abdomen: external organ herniation noted, open, covered in gauze, no clearly purulent drainage MSK: 1+ pitting edema in legs bilaterally, per patient her baseline Skin: No rashes, petechiae, lesions. Normal color per patient. Neuro: Normal Gait, Grossly intact. Psych: agitated but alert and orriented x3, able to make decisions Discharge Exam General- oriented x 3, not in distress, speaks in sentences with no effort or accessory muscle use Eyes- anicteric Neck- no JVD Lungs- clear breath sounds bilaterally, no rales/wheezes Heart- normal rate, regular rhythm; no murmurs Abdomen-declined exam Extremities- declined exam Neuro- alert, oriented x 3; no gross focal neurologic deficits Skin- warm & dry Updated Medication List Medication Instructions Recorded Confirmed Type doxepin 25 mg capsule 25 mg PO BID 08/04/24 02/22/25 History metformin 500 mg tablet,extended 0 mg PO DAILY 08/04/24 02/22/25 History release 24 hr trazodone 100 mg tablet 100 mg PO HS 08/04/24 02/22/25 History cholecalciferol (vitamin D3) 1,250 50,000 unit PO WK 02/22/25 02/22/25 History mcg (50,000 unit) capsule lidocaine 5 % topical patch 0 patch topical DAILY 02/22/25 02/22/25 History (Lidoderm) potassium chloride 20 mEq 0 meq PO DAILY 02/22/25 02/22/25 History tablet,extended release ursodiol 300 mg capsule 300 mg PO QID 02/22/25 02/22/25 History Lactobacillus acidoph-L.bulgaricus 1 tab PO DAILY #10 tabs 02/24/25 Rx 1 million cell tablet (Floranex) amoxicillin 875 mg-potassium 1 tab PO BID #14 tabs 02/24/25 Rx clavulanate 125 mg tablet furosemide 40 mg tablet 40 mg PO DAILY #0 tabs 02/24/25 02/22/25 Rx pantoprazole 40 mg tablet,delayed 40 mg PO DAILY #0 tabs 02/24/25 02/22/25 Rx release spironolactone 100 mg tablet 100 mg PO DAILY #0 tabs 02/24/25 02/22/25 Rx Hospital Stay Data Consultations 02/22/25 15:40 ED Decision to Admit Stat 02/22/25 16:58 Consult Psychiatry Routine 02/22/25 17:01 Consult Gastroenterology Routine 02/22/25 20:03 Consult Gastroenterology Routine Consult Psychiatry Routine 02/24/25 07:55 Consult Nephrology Routine Diagnostic Imagining Performed Laboratory Results WBC 9.56 K/ul (4.8-10.8) 02/24/25 04:55 RBC 3.29 M/uL (4.20-5.40) L 02/24/25 04:55 Hgb 9.0 g/dl (12.0-16.0) L 02/24/25 04:55 Hct 27.8 % (37.0-47.0) L 02/24/25 04:55 MCV 84.5 fL (80.0-100.0) 02/24/25 04:55 MCH 27.4 pg (25.0-34.0) 02/24/25 04:55 MCHC 32.4 g/dL (32.0-36.0) 02/24/25 04:55 RDW Std Deviation 47.0 fL (36.4-46.3) H 02/24/25 04:55 RDW Coeff of Mallory 15.4 % (11.5-14.5) H 02/24/25 04:55 Plt Count 172 K/uL (130-400) 02/24/25 04:55 MPV 8.8 fL (9.4-12.4) L 02/24/25 04:55 Immature Gran % (Auto) 1.4 % 02/24/25 04:55 Neut % (Auto) 67.2 % 02/24/25 04:55 Lymph % (Auto) 23.0 % 02/24/25 04:55 [place] % (Auto) 6.9 % 02/24/25 04:55 Eos % (Auto) 1.0 % 02/24/25 04:55 Baso % (Auto) 0.5 % 02/24/25 04:55 Neut # (Auto) 6.42 K/uL (1.40-6.50) 02/24/25 04:55 Lymph # (Auto) 2.20 K/uL (1.20-3.40) 02/24/25 04:55 [place] # (Auto) 0.66 K/uL (0.11-0.59) H 02/24/25 04:55 Eos # (Auto) 0.10 K/uL (0.00-0.50) 02/24/25 04:55 Baso # (Auto) 0.05 K/uL (0.00-0.20) 02/24/25 04:55 Immature Gran # (Auto) 0.13 K/uL (0.01-0.20) 02/24/25 04:55 Polychromasia 1+ 02/22/25 11:50 Stomatocytes 1+ 02/22/25 11:50 PT 10.3 Seconds (9.0-12.0) 02/22/25 11:50 INR 0.9 (0.9-1.1) 02/22/25 11:50 Sodium 124 mmol/L (136-145) L 02/24/25 04:55 Potassium 3.9 mmol/L (3.5-5.1) D 02/24/25 04:55 Chloride 97 mmol/L (98-107) L 02/24/25 04:55 Carbon Dioxide 21 mmol/L (21-32) 02/24/25 04:55 Anion Gap 6 (3-11) 02/24/25 04:55 BUN 18 mg/dl (6-23) 02/24/25 04:55 Creatinine 0.92 mg/dl (0.6-1.2) 02/24/25 04:55 Est Cr Clr Drug Dosing 59.3 ml/min 02/24/25 04:55 eGFR 71.28 02/24/25 04:55 BUN/Creatinine Ratio 19.6 (10-20) 02/24/25 04:55 Glucose 103 mg/dl (70-99(Fasting)) H 02/24/25 04:55 POC Glucose 140 mg/dl (70-99) H 02/24/25 07:07 Osmolality 269 mOsm/kg (280-300) L 02/22/25 11:50 Lactate 1.3 mmol/L (0.4-2.0) 02/22/25 16:37 Calcium 8.2 mg/dl (8.6-10.3) L 02/24/25 04:55 Phosphorus 2.4 mg/dl (2.5-4.9) L 02/24/25 04:55 Magnesium 2.0 mg/dl (1.7-2.4) 02/24/25 04:55 Total Bilirubin 1.1 mg/dl (0.2-1.0) H 02/24/25 04:55 Direct Bilirubin 0.6 mg/dl (0-0.2) H 02/22/25 11:50 AST 26 U/L (13-39) 02/24/25 04:55 ALT 26 U/L (7-52) 02/24/25 04:55 Alkaline Phosphatase 228 U/L (34-104) H 02/24/25 04:55 Ammonia 37.0 umol/L (18-72) 02/22/25 12:27 Total Protein 6.0 gm/dl (6.0-8.3) 02/24/25 04:55 Albumin 2.8 gm/dl (3.4-5.0) L 02/24/25 04:55 Globulin 3.2 gm/dl (2.5-4.0) 02/24/25 04:55 Albumin/Globulin Ratio 0.9 (0.9-2) 02/24/25 04:55 Lipase 41 U/L (11-82) 02/22/25 11:50 Procalcitonin 1.01 ng/ml (0-0.5) H 02/22/25 11:50 TSH 7.766 uIu/ml (0.300-4.500) H 02/22/25 11:50 Free T4 0.80 ng/dl (0.61-1.60) 02/22/25 11:50 Urine Color Yellow 02/23/25 Unknown Urine Appearance Clear (Clear) 02/23/25 Unknown Urine pH 6.0 (4.5-7.5) 02/23/[address] 1.023 (1.000-1.030) 02/23/25 Unknown Urine Protein Negative (Negative) 02/23/25 Unknown Urine Glucose (UA) Negative (Negative) 02/23/25 Unknown Urine Ketones Negative (Negative) 02/23/25 Unknown Urine Blood Negative (Negative) 02/23/25 Unknown Urine Nitrite Negative (Negative) 02/23/25 Unknown Urine Bilirubin Negative (Negative) 02/23/25 Unknown Urine Urobilinogen Negative (Negative) 02/23/25 Unknown Ur Leukocyte Esterase Trace (Negative) H 02/23/25 Unknown Urine WBC (Auto) 0-5 /hpf (0-5) 02/23/25 Unknown Urine RBC (Auto) 0-2 /hpf (0-2) 02/23/25 Unknown U Hyaline Cast (Auto) 3-5 /lpf (0-2) H 02/23/25 Unknown U Epithel Cells (Auto) 11-20 /hpf (0-2) H 02/23/25 Unknown Urine Bacteria (Auto) None Seen (None Seen) 02/23/25 Unknown Urine Osmolality 517 mOsm/kg (500-800) 02/22/25 Unknown Ur Random Sodium < 10 mmol/L 02/22/25 Unknown Urine Comment 02/23/25 Unknown Blood Type O Positive 02/22/25 13:49 Antibody Screen NEGATIVE 02/22/25 13:49 Crossmatch See Detail 02/22/25 13:49 Transfusion React Date 02/22/2025 02/22/25 16:37 Transfusion React Time 1615 02/22/25 16:37 Tx React Symptoms HYPOTENSION 02/22/25 16:37 Reaction Clerical Check None Found 02/22/25 16:37 Lab Clerical Err Check None Found 02/22/25 16:37 React Component Return PCLR 02/22/25 16:37 Volume Returned 230 ML 02/22/25 16:37 Pre-Trans Blood Type O POSITIVE 02/22/25 16:37 Pre-Trans Vis Hemolysis No 02/22/25 16:37 Pre-Trans ELISA Negative (Negative) 02/22/25 16:37 Pre-Trans ELISA IgG Neg (Negative) 02/22/25 16:37 Pre-Trans ELISA Poly Neg (Negative) 02/22/25 16:37 Pre-Trans ELISA C3b, C3d Neg (Negative) 02/22/25 16:37 Post-Trans Blood Type O POSITIVE 02/22/25 16:37 Post-Tx Visible Hemolys No 02/22/25 16:37 Post-Trans ELISA Negative (Negative) 02/22/25 16:37 Post-Trans ELISA IgG Neg (Negative) 02/22/25 16:37 Post-Trans ELISA Poly Neg (Negative) 02/22/25 16:37 Post-Trans ELISA C3b, C3d Neg (Negative) 02/22/25 16:37 Post-Trans Ur Hemoglobin 02/22/25 16:37 Reaction Path Interpret 02/22/25 16:37 Transfusion Serv Com 02/22/25 16:37 Impressions ULTRASOUND-GUIDED PARACENTESIS CLINICAL HISTORY: Ascites PROCEDURE: Procedure and risks were explained. Informed consent was obtained. A final timeout was completed. The abdomen was prepped and draped in sterile fashion. 1% lidocaine was utilized for skin anesthesia. Utilizing ultrasound guidance, a 5 English safety centesis catheter was advanced into the left lower quadrant pocket of ascites. Ultrasound images were obtained. 3.1 L of yellow ascites fluid was removed and discarded. The catheter was removed, with 1 L sent to the lab for analysis. The patient tolerated the procedure well. Vital signs will be monitored postprocedure. The patient was instructed to go to the emergency department with postprocedure for additional hernia care. IMPRESSION: Ultrasound-guided paracentesis as above. Chest X-Ray 02/22/25 11:43 XR chest 1V portable HISTORY: 59 years-old Female weakness COMPARISON: Chest CT 02/13/2025 TECHNIQUE: AP view of the chest FINDINGS: Cardiomediastinal and hilar silhouettes are within normal limits. Pulmonary emphysema without pneumothorax, pleural effusion, airspace consolidation or pulmonary edema. Bones appear grossly intact. IMPRESSION: No acute process. ACT 112: Negative or not required by law. The above report was generated using voice recognition software. It may contain grammatical, syntax or spelling errors. Electronically signed by: Jono Mendez M.D. 02/22/2025 12:05 PM Abdomen/Pelvis CT 02/22/25 12:[address] WITH IV CONTRAST CT DOSE: 1157.4 mGy.cm HISTORY: Acute onset abdominal pain with reported hernia hernia evisceration TECHNIQUE: Multiaxial CT images of the abdomen and pelvis were performed following the IV administration of 94 cc of Optiray, A dose lowering technique was utilized adhering to the principles of ALARA. COMPARISON STUDY: CT abdomen and pelvis 02/13/2025 FINDINGS: Cardiomegaly with coronary artery and mitral annular calcifications. Clear lung bases. No pneumatosis or pneumoperitoneum. Spleen is enlarged measuring 15 cm. Unremarkable pancreas and adrenal glands. Nonspecific gallbladder wall thickening is unchanged. Cirrhotic liver. No hepatic mass identified. Patency of the hepatic and portal veins. Unremarkable kidneys. No hydronephrosis. Urinary bladder and uterus are within normal limits. Atherosclerosis of the aorta and branch vessels. Periaortic and periportal lymph nodes measure up to 9 mm which are nonspecific and stable. Abdominal varicosities are noted. Recanalization of the umbilical vein. Esophageal varicosities. Colonic diverticulosis without definite acute diverticulitis. Areas of wall thickening again noted within numerous loops of large and small bowel. No CT evidence of acute appendicitis. No high-grade bowel obstruction. Small volume of ascites. A subumbilical hernia contains mesenteric fat and a portion of the nonobstructed transverse colon, opening of 4 cm. Additionally, inferior to this there is a fat filled umbilical hernia with opening of 4 cm containing ascitic fluid and mesenteric fat. Unremarkable soft tissues. No acute fracture. Degenerative changes of the spine, pelvis and hips. IMPRESSION: 1. Cirrhosis with stigmata of portal venous hypertension. 2. Areas of large and small bowel thickening are again noted, likely portal enteropathy and portal colopathy. A nonspecific enterocolitis considered less likely. 3. Fat and ascitic filled umbilical hernia. A supra-umbilical hernia partially contains a nonobstructed loop of large bowel along with mesenteric fat. 4. Additional findings as above. ACT 112: Negative or not required by law. The above report was generated using voice recognition software. It may contain grammatical, syntax or spelling errors. Electronically signed by: Jono Mendez M.D. 02/22/2025 2:41 PM Pending Results Patient Have Any Pending Studies at Discharge: No Discharge Instructions Given to Patient (Per Discharging Provider) PLEASE REFER TO YOUR NEW MEDICATION LIST AND FOLLOW INSTRUCTIONS CAREFULLY. YOUR NEW MEDICATIONS INCLUDE: Augmentin- antibiotic for infection of fluid in the abdomen Stop taking Aspirin, Atorvastatin as you were diagnosed with GI bleed and decompensated liver cirrhosis. Your Primary Care Physician will advise you on when you can resume these medications. Protonix- take twice a day x 7 days, then resume daily dosing PLEASE CALL YOUR PRIMARY CARE PHYSICIAN OR RETURN TO THE ER IF WITH WORSENING OF SYMPTOMS, INCLUDING abdominal pain, nausea/vomiting, fever/chills, confusion, etc FOLLOW UP WITH PRIMARY CARE PHYSICIAN OUTLINED ABOVE. Total Time Total Time Spent Total Time Spent (In Minutes): 70 minutes
--- NOTE | 2025-02-24 11:02 | Electrocardiogram Report ---
Test Reason : Blood Pressure : */* mmHG Vent. Rate : 79 BPM Atrial Rate : 79 BPM P-R Int : 142 ms QRS Dur : 74 ms QT Int : 390 ms P-R-T Axes : 63 54 63 degrees QTcB Int : 447 ms Sinus rhythm with Premature atrial complexes Nonspecific T wave abnormality Abnormal ECG When compared with ECG of 23-Feb-2025 03:54, No significant change was found Confirmed by Tom Garcia ([id number]) on 02/24/2025 11:01:43 AM Referred By: REFERRED SELF Confirmed By: Tom Garcia
== END 2025-02-24 11:13 | disposition home or self-care (01) | DRG 871 ==
LOC: ED 10:55 → SUATTDRO 17:07 → 2S 17:07